=== PATIENT | male | born 1970 | race Two or more races ===

== ENCOUNTER 2016-12-25 13:42 | Inpatient (IN) | payer OTHER ==
[2016-12-25 13:59] VITALS: BMI 20.9
--- NOTE | 2016-12-25 17:02 | HP ---
COWS - Scale Resting Pulse: 0= [place] 80 or Below Sweatin=Flushed/Facial Moisture Restless Observation: 1= Difficult to Sit Still Pupil Size: 2= Moderately Dilated Bone or Joint Aches: 1= Mild Discomfort Runny Nose/ Eye Tearin= Runny Nose/Eyes GI Upset > 30mins: 2= Nausea/Diarrhea Tremor Observation: 2= Slight Tremor Visible Yawning Observation: 1= 1-2x During Session Anxiety or Irritability: 2=Irritable/Anxious Goose Flesh Skin: 0=Smooth Skin COWS Score: 15 CIWA Score - CIWA Score Nausea/Vomitin-Mild Nausea/No Vomiting Muscle Tremors: 3 Anxiety: 4-Mod. Anxious/Guarded Agitation: 4-Moderately Restless Paroxysmal Sweats: 3 Orientation: 2-Disoriented Date<2 days Tacttile Disturbances: 0-None Auditory Disturbances: 0-None Visual Disturbances: 0-None Headache: 0-None Present CIWA-Ar Total Score: 17 Admission ROS S - HPI Allergies/Adverse Reactions: Allergies Allergy/AdvReac Type Severity Reaction Status Date / Time No Known Allergies Allergy Verified 12/25/16 16:54 - Ebola screening Have you traveled outside of the country in the last 21 days: No Have you had contact with anyone from an Ebola affected area: No Have you been sick,other than usual withdrawal symptoms: No Do you have a fever: No - Review of Systems Constitutional: Diaphoresis EENT: reports: Nose Congestion Respiratory: reports: No Symptoms reported Cardiac: reports: No Symptoms Reported GI: reports: Diarrhea, Nausea, Abdominal cramping : reports: No Symptoms Reported Musculoskeletal: reports: Muscle Pain Integumentary: reports: Sweating Neuro: reports: Tremors Endocrine: reports: No Symptoms Reported Hematology: reports: No Symptoms Reported Psychiatric: reports: No Sypmtoms Reported Other Systems: Reviewed and Negative Patient History - Patient Medical History Hx Anemia: No Hx Asthma: No Hx Chronic Obstructive Pulmonary Disease (COPD): No Hx Cancer: No Hx Cardiac Disorders: No Hx Congestive Heart Failure: No Hx Hypertension: No Hx Hypercholesterolemia: No Hx Pacemaker: No HX Cerebrovascular Accident: No Hx Seizures: No Hx Dementia: No Hx Diabetes: No Hx Gastrointestinal Disorders: No Hx Liver Disease: Yes Hx Genitourinary Disorders: No Hx Sexually Transmitted Disorders: No Hx Renal Disease (ESRD): No Hx Thyroid Disease: No Hx Human Immunodeficiency Virus (HIV): No Hx Hepatitis C: Yes (needs treatment) Hx Depression: No Hx Suicide Attempt: No Hx Bipolar Disorder: No Hx Schizophrenia: No - Patient Surgical History Past Surgical History: No - PPD History Previous Implant?: Yes Documented Results: Negative w/o proof PPD to be Administered?: Yes - Smoking Cessation Smoking history: Current every day smoker Aproximately how many cigarettes per day: 10 Hx Chewing Tobacco Use: No Initiated information on smoking cessation: Yes 'Breaking Loose' booklet given: 12/25/16 - Substance & Tx. History Hx Alcohol Use: No Hx Substance Use: Yes Substance Use Type: Heroin, Tranquilizers Hx Substance Use Treatment: Yes (Detox) - Substances Abused Alprazolam (Xanax) Route: Oral Frequency: Daily Amount used: 4mg Age of first use: 31 Date of Last Use: 12/25/16 Heroin Route: Inhalation Frequency: Daily Amount used: 3 bags Age of first use: 16 Date of Last Use: 12/25/16 Family Disease History - Family Disease History Family Disease History: CA: Father (colon), Mother (colon) Admission Physical Exam [facility] - Vital Signs Vital Signs: Vital Signs - 24 hr 12/25/16 13:56 Temperature 97.7 F Pulse Rate 57 L Respiratory 18 Rate Blood Pressure 117/72 - Physical General Appearance: Yes: Tremorous, Irritable, Sweating, Anxious HEENTM: Yes: Nasal Congestion, Rhinorrhea Respiratory: Yes: Chest Non-Tender, Lungs Clear, Normal Breath Sounds Neck: Yes: Supple Breast: Yes: Breast Exam Deferred Cardiology: Yes: Regular Rhythm, Regular Rate, S1, S2 Abdominal: Yes: Normal Bowel Sounds, Non Tender, Soft Genitourinary: Yes: Within Normal Limits Back: Yes: Within Normal Limits Musculoskeletal: Yes: Within Normal Limits Extremities: Yes: Tremors Neurological: Yes: Fully Oriented, Alert Integumentary: Yes: Diaphoresis Lymphatic: Yes: Within Normal Limits - Diagnostic (1) Opioid dependence with withdrawal Current Visit: Yes Status: Acute (2) Sedative, hypnotic or anxiolytic dependence with withdrawal, uncomplicated Current Visit: Yes Status: Acute Cleared for Admission [facility] - Detox or Rehab [facility] Level of Care: Medically Managed Detox Regimen/Protocol: Methadone/Valium [facility] Breath Alcohol Content Breath Alcohol Content: 0 Urine Drug Screen - Results Drug Screen Negative: No Urine Drug Screen Results: OPI-Opiates, BZO-Benzodiazepines
[2016-12-25] MEDS ORDERED: ACETAMINOPHEN 325 MG TABLET (FP) PO PRN (17:17)
[2016-12-25] MEDS ORDERED: MENTHOL/PHENOL 1 EACH UD MM PRN (17:17)
[2016-12-25] MEDS ORDERED: NICOTINE POLACRILEX 2 MG GUM BC PRN (17:17)
[2016-12-25] MEDS ORDERED: MAGNESIUM CITRATE 300 ML BOTTLE PO PRN (17:17)
[2016-12-25] MEDS ORDERED: IBUPROFEN 400 MG TABLET (FP) PO PRN (17:17)
[2016-12-25] MEDS ORDERED: diazePAM 5 MG TABLET PO ONE (17:17)
[2016-12-25] MEDS ORDERED: MAGNESIUM HYDROX 2400MG/30ML ORAL SUSPENSION 30 ML CUP PO PRN (17:17)
[2016-12-25] MEDS ORDERED: hydrOXYzine PAMOATE 50 MG CAPSULE (FP) PO PRN (17:17)
[2016-12-25] MEDS ORDERED: P-EPHED 60MG/TRIPROLIDI 2.5MG TABLET PO PRN (17:17)
[2016-12-25] MEDS ORDERED: METHADONE HCL 10 MG TABLET (FOR DETOX USE ONLY) PO ONE ×2 (17:17→23:00)
[2016-12-25] MEDS ORDERED: guaiFENesin/D-METHORPHAN HB 10 ML UNIT-DOSE CUPS PO PRN (17:17)
[2016-12-25] MEDS: NICOTINE 21 MG/24 HOURS TOPICAL PATCH TD SCH (18:57)
[2016-12-25] MEDS: THIAMINE HCL 100 MG TABLET (FP) PO SCH (22:17)
[2016-12-25] MEDS: diphenhydrAMINE HCL 50 MG CAPSULE PO PRN (22:17)
[2016-12-25] MEDS: diazePAM 5 MG TABLET PO SCH (22:18)
[2016-12-25 22:28] LABS: URINE APPEARANCE CLEAR; URINE BILIRUBIN NEGATIVE (NEGATIVE); URINE BLOOD NEGATIVE (NEGATIVE); URINE COLOR LTYELLOW; URINE GLUCOSE (UA) NEGATIVE (NEGATIVE); URINE KETONE NEGATIVE (NEGATIVE); URINE LEUK ESTERASE NEGATIVE (NEGATIVE); URINE NITRITE NEGATIVE (NEGATIVE); URINE PROTEIN NEGATIVE (NEGATIVE); URINE UROBILINOGEN NEGATIVE mg/dL (0.2-1.0)
[2016-12-26] MEDS: diazePAM 5 MG TABLET PO SCH ×3 (05:21→22:12)
[2016-12-26] MEDS ORDERED: METHADONE HCL 10 MG TABLET (FOR DETOX USE ONLY) PO SCH (10:00)
[2016-12-26] MEDS: PRENATAL VITAMINS W/ FOLIC ACID TABLET (FP) PO SCH (10:15)
[2016-12-26] MEDS: NICOTINE 21 MG/24 HOURS TOPICAL PATCH TD SCH (10:16)
[2016-12-26] MEDS: diazePAM 5 MG TABLET PO PRN ×2 (10:17→17:55)
[2016-12-26 10:28] LABS: MCH 31.9 pg (25.7-33.7); MCHC 33.6 g/dl (32.0-35.9); MEAN PLT VOLUME 9.9 fl (7.5-11.1); PLATELET COUNT 162 K/MM3 (134-434); RDW 12.4 % (11.9-15.9); WHITE BLOOD COUNT 5.6 K/mm3 (4.0-10.0)
[2016-12-26 10:34] LABS: ALBUMIN 3.4 g/dl (3.4-5.0); ANION GAP 7 (8-16); CALCIUM 8.5 mg/dL (8.5-10.1); CO2 28 mmol/L (21-32); GLUCOSE,RANDOM 111 mg/dL (74-106)
[2016-12-26 10:37] LABS: ALK PHOS 138 U/L (45-117); BILIRUBIN,TOTAL 0.3 mg/dL (0.2-1.0); CREATININE 0.9 mg/dL (0.7-1.3); SGOT/AST 61 U/L (15-37); SGPT/ALT 138 U/L (12-78)
--- NOTE | 2016-12-26 12:54 | PN ---
BHS COWS - Scale Resting Pulse: 0= [place] 80 or Below Sweatin=Flushed/Facial Moisture Restless Observation: 1= Difficult to Sit Still Pupil Size: 0= Normal to Room Light Bone or Joint Aches: 2= Severe Diffuse Aches Runny Nose/ Eye Tearin= Runny Nose/Eyes GI Upset > 30mins: 2= Nausea/Diarrhea Tremor Observation of Outstretched Hands: 2= Slight Tremor Visible Yawning Observation: 2= >3x During Session Anxiety or Irritability: 2=Irritable/Anxious Goose Flesh Skin: 0=Smooth Skin COWS Score: 15 BHS Progress Note (SOAP) Subjective: Anxiety,tremors,sweating,interrupted sleep,restless Objective: 12/26/16 12:53 Vital Signs - 8 hr 12/26/16 12/26/16 06:00 10:00 Temperature 98.1 F 97.7 F Pulse Rate 61 70 Respiratory 18 16 Rate Blood Pressure 129/62 135/80 Laboratory Tests 12/25/16 12/26/16 12/26/16 21:00 07:45 07:45 WBC 5.6 RBC 4.38 Hgb 14.0 Hct 41.6 MCV 95.0 MCH 31.9 MCHC 33.6 RDW 12.4 Plt Count 162 MPV 9.9 Sodium 139 Potassium 4.3 Chloride 104 Carbon Dioxide 28 Anion Gap 7 L BUN 18 Creatinine 0.9 Creat Clearance w eGFR > 60 Random Glucose 111 H Calcium 8.5 Total Bilirubin 0.3 AST 61 H ALT 138 H Alkaline Phosphatase 138 H Total Protein 7.0 Albumin 3.4 Urine Color Ltyellow Urine Appearance Clear Urine pH 7.0 Ur Specific [place] 1.025 Urine Protein Negative Urine Glucose (UA) Negative Urine Ketones Negative Urine Blood Negative Urine Nitrite Negative Urine Bilirubin Negative Urine Urobilinogen Negative Ur Leukocyte Esterase Negative labs noted Assessment: 12/26/16 12:53 Withdrawal sx. Plan: Continue detox
[2016-12-26] MEDS: LOPERAMIDE HCL 2 MG CAPSULE PO PRN (17:55)
[2016-12-26] MEDS ORDERED: TRIMETHOBENZAMIDE HCL 200MG/2ML INJ IM PRN (18:37)
[2016-12-26] MEDS: THIAMINE HCL 100 MG TABLET (FP) PO SCH (22:13)
[2016-12-27] MEDS: diazePAM 5 MG TABLET PO PRN (05:06)
--- NOTE | 2016-12-27 09:19 | PN ---
S COWS - Scale Resting Pulse: 0= [place] 80 or Below Sweatin=Flushed/Facial Moisture Restless Observation: 1= Difficult to Sit Still Pupil Size: 0= Normal to Room Light Bone or Joint Aches: 2= Severe Diffuse Aches Runny Nose/ Eye Tearin= Runny Nose/Eyes GI Upset > 30mins: 1= Stomach Cramp Tremor Observation of Outstretched Hands: 2= Slight Tremor Visible Yawning Observation: 2= >3x During Session Anxiety or Irritability: 2=Irritable/Anxious Goose Flesh Skin: 0=Smooth Skin COWS Score: 14 S Progress Note (SOAP) Subjective: agitation anxiety sweats irritable interrupted sleep Objective: 12/27/16 09:16 Vital Signs Temperature 96.6 F L 12/27/16 06:01 Pulse Rate 58 L 12/27/16 06:01 Respiratory Rate 16 12/27/16 06:01 Blood Pressure 104/59 12/27/16 06:01 O2 Sat by Pulse Oximetry (%) Laboratory Tests 12/25/16 12/26/16 12/26/16 21:00 07:45 07:45 WBC 5.6 RBC 4.38 Hgb 14.0 Hct 41.6 MCV 95.0 MCH 31.9 MCHC 33.6 RDW 12.4 Plt Count 162 MPV 9.9 Sodium 139 Potassium 4.3 Chloride 104 Carbon Dioxide 28 Anion Gap 7 L BUN 18 Creatinine 0.9 Creat Clearance w eGFR > 60 Random Glucose 111 H Calcium 8.5 Total Bilirubin 0.3 AST 61 H ALT 138 H Alkaline Phosphatase 138 H Total Protein 7.0 Albumin 3.4 Urine Color Ltyellow Urine Appearance Clear Urine pH 7.0 Ur Specific [place] 1.025 Urine Protein Negative Urine Glucose (UA) Negative Urine Ketones Negative Urine Blood Negative Urine Nitrite Negative Urine Bilirubin Negative Urine Urobilinogen Negative Ur Leukocyte Esterase Negative RPR Titer 12/26/16 07:45 WBC RBC Hgb Hct MCV MCH MCHC RDW Plt Count MPV Sodium Potassium Chloride Carbon Dioxide Anion Gap BUN Creatinine Creat Clearance w eGFR Random Glucose Calcium Total Bilirubin AST ALT Alkaline Phosphatase Total Protein Albumin Urine Color Urine Appearance Urine pH Ur Specific [place] Urine Protein Urine Glucose (UA) Urine Ketones Urine Blood Urine Nitrite Urine Bilirubin Urine Urobilinogen Ur Leukocyte Esterase RPR Titer Nonreactive awake/alert ambulating no acute distress Assessment: 12/27/16 09:18 withdrawal sx Plan: continue detox increase fluids tylenol d/c
--- NOTE | 2016-12-27 09:59 | EKG ---
Test Reason : Blood Pressure : / mmHG Vent. Rate : 053 BPM Atrial Rate : 053 BPM P-R Int : 116 ms QRS Dur : 096 ms QT Int : 442 ms P-R-T Axes : 021 087 071 degrees QTc Int : 414 ms SINUS BRADYCARDIA OTHERWISE NORMAL ECG NO PREVIOUS ECGS AVAILABLE Confirmed by JUAN ALBERTO CORTES MD ([id number]) on 12/27/2016 9:58:40 AM Referred By: Confirmed By:JUAN ALBERTO CORTES MD
[2016-12-27] MEDS: PRENATAL VITAMINS W/ FOLIC ACID TABLET (FP) PO SCH (10:23)
[2016-12-27] MEDS: diazePAM 5 MG TABLET PO SCH ×2 (10:24→22:21)
[2016-12-27] MEDS: NICOTINE 21 MG/24 HOURS TOPICAL PATCH TD SCH (10:24)
[2016-12-27] MEDS: METHADONE HCL 5 MG TABLET (FOR DETOX USE ONLY) PO SCH (10:24)
[2016-12-27] MEDS: THIAMINE HCL 100 MG TABLET (FP) PO SCH (22:21)
[2016-12-27] MEDS: diphenhydrAMINE HCL 50 MG CAPSULE PO PRN (22:22)
[2016-12-28] MEDS: MAG HYDROX/AL HYDROX/SIMETH 30 ML UNIT-DOSE CUP PO PRN ×2 (04:14→22:22)
[2016-12-28] MEDS: LOPERAMIDE HCL 2 MG CAPSULE PO PRN ×3 (05:24→19:40)
[2016-12-28] MEDS: diazePAM 5 MG TABLET PO PRN (05:26)
[2016-12-28] MEDS: METHADONE HCL 5 MG TABLET (FOR DETOX USE ONLY) PO SCH (10:13)
[2016-12-28] MEDS: NICOTINE 21 MG/24 HOURS TOPICAL PATCH TD SCH (10:13)
[2016-12-28] MEDS: diazePAM 5 MG TABLET PO SCH ×2 (10:13→22:22)
[2016-12-28] MEDS: PRENATAL VITAMINS W/ FOLIC ACID TABLET (FP) PO SCH (10:13)
--- NOTE | 2016-12-28 10:55 | PN ---
BHS Progress Note (SOAP) Subjective: agitation anxiety sweats diarrhea Objective: 12/28/16 10:53 Vital Signs Temperature 97.7 F 12/28/16 10:00 Pulse Rate 73 12/28/16 10:00 Respiratory Rate 18 12/28/16 10:00 Blood Pressure 135/78 12/28/16 10:00 O2 Sat by Pulse Oximetry (%) awake/alert ambulating no acute distress Assessment: 12/28/16 11:00 withdrawal sx Plan: continue detox increase fluids immodium prn
[2016-12-28] MEDS: diphenhydrAMINE HCL 50 MG CAPSULE PO PRN (22:22)
[2016-12-28] MEDS: THIAMINE HCL 100 MG TABLET (FP) PO SCH (22:22)
[2016-12-29] MEDS ORDERED: diazePAM 5 MG TABLET PO SCH (10:00)
[2016-12-29] MEDS ORDERED: METHADONE HCL 10 MG TABLET (FOR DETOX USE ONLY) PO SCH (10:00)
--- NOTE | 2016-12-29 10:08 | PN ---
BHS Progress Note (SOAP) Subjective: irritable diarrhea Objective: 12/29/16 10:06 Vital Signs Temperature 98.2 F 12/29/16 10:00 Pulse Rate 79 12/29/16 10:00 Respiratory Rate 18 12/29/16 10:00 Blood Pressure 127/71 12/29/16 10:00 O2 Sat by Pulse Oximetry (%) awake/alert ambulating no acute distress Assessment: 12/29/16 10:07 mild withdrawal Plan: continue detox immodium prn d/c in am
[2016-12-29] MEDS: PRENATAL VITAMINS W/ FOLIC ACID TABLET (FP) PO SCH (10:14)
[2016-12-29] MEDS: NICOTINE 21 MG/24 HOURS TOPICAL PATCH TD SCH (10:15)
[2016-12-29] MEDS: THIAMINE HCL 100 MG TABLET (FP) PO SCH (22:45)
[2016-12-29] MEDS: diphenhydrAMINE HCL 50 MG CAPSULE PO PRN (22:45)
[2016-12-30] MEDS: MAG HYDROX/AL HYDROX/SIMETH 30 ML UNIT-DOSE CUP PO PRN (04:00)
[2016-12-30] MEDS ORDERED: METHADONE HCL 5 MG TABLET (FOR DETOX USE ONLY) PO SCH (06:00)
[2016-12-30] MEDS: LOPERAMIDE HCL 2 MG CAPSULE PO PRN (06:54)
--- NOTE | 2016-12-30 09:05 | DS ---
[facility] Detox Discharge Summary Admission Date: 12/25/16 Discharge Date: 12/30/16 - History Present History: Opioid Dependence, Sedative Dependence - Physical Exam Results Vital Signs: Vital Signs Temperature 97.3 F L 12/30/16 06:14 Pulse Rate 67 12/30/16 06:14 Respiratory Rate 16 12/30/16 06:14 Blood Pressure 132/64 12/30/16 06:14 O2 Sat by Pulse Oximetry (%) - Treatment Hospital Course: Detox Protocol Followed, Detoxed Safely, Responded well, Discharged Condition Good, Rehab Referral Accepted - Medication Discharge Medications: Ambulatory Orders NK [No Known Home Medication] 12/25/16 - Diagnosis (1) Opioid dependence with withdrawal Current Visit: Yes Status: Chronic (2) Sedative, hypnotic or anxiolytic dependence with withdrawal, uncomplicated Current Visit: Yes Status: Chronic - AMA Did Patient Leave Against Medical Advice: No (d/c to home)
[2016-12-30] MEDS: PRENATAL VITAMINS W/ FOLIC ACID TABLET (FP) PO SCH (09:18)
[2016-12-30] MEDS: NICOTINE 21 MG/24 HOURS TOPICAL PATCH TD SCH (09:19)
[2016-12-30 09:31] VITALS: BP 126/86; PULSE 75; TEMP 97
== END 2016-12-30 09:25 | disposition home or self-care (01) | DRG 773 ==
LOC: YASAS 13:42 → Y6N 17:18
PROVIDERS: ADMIT Internal Medicine; ATTEND Internal Medicine
PROC: HZ2ZZZZ Detoxification Services for Substance Abuse Treatment (ICD-10-PCS; principal; 2016-12-25)
DX: F11.23 Opioid dependence with withdrawal (principal); F13.230 Sedative, hypnotic or anxiolytic dependence with withdrawal, uncomplicated; F17.210 Nicotine dependence, cigarettes, uncomplicated; B18.2 Chronic viral hepatitis C
CPT/HCPCS: 36415; 80053; 81003; 85027; 86593; 93005; 93010

== ENCOUNTER 2017-08-01 10:33 | Inpatient (IN) | payer OTHER ==
[2017-08-01 11:42] VITALS: BMI 22.7
--- NOTE | 2017-08-01 13:38 | HP ---
COWS - Scale Resting Pulse: 0= [place] 80 or Below Sweatin= Chills/Flushing Restless Observation: 3= Extraneous Movement Pupil Size: 0= Normal to Room Light Bone or Joint Aches: 2= Severe Diffuse Aches Runny Nose/ Eye Tearin= Runny Nose/Eyes GI Upset > 30mins: 2= Nausea/Diarrhea Tremor Observation: 2= Slight Tremor Visible Yawning Observation: 2= >3x During Session Anxiety or Irritability: 2=Irritable/Anxious Goose Flesh Skin: 3=Piloerection COWS Score: 19 Admission [facility] Chief Complaint: withdrawal sx Allergies/Adverse Reactions: Allergies Allergy/AdvReac Type Severity Reaction Status Date / Time No Known Allergies Allergy Verified 12/25/16 16:54 History of Present Illness: 47 years old male with long history of heroin nicotine dependence has hepatitis c and depression anxiety is admitted to detox Exam Limitations: No Limitations - Ebola screening Have you traveled outside of the country in the last 21 days: No Have you had contact with anyone from an Ebola affected area: No Have you been sick,other than usual withdrawal symptoms: No Do you have a fever: No - Review of Systems Constitutional: Chills, Loss of Appetite, Unintentional Wgt. Loss, Unexplained wgt Loss EENT: reports: No Symptoms Reported Respiratory: reports: No Symptoms reported Cardiac: reports: No Symptoms Reported GI: reports: Diarrhea, Nausea, Poor Appetite, Poor Fluid Intake, Vomiting, Abdominal cramping : reports: No Symptoms Reported Musculoskeletal: reports: Back Pain, Joint Pain, Muscle Pain, Neck Pain Integumentary: reports: Change in Color (arms iv heroin) Neuro: reports: Tremors Endocrine: reports: No Symptoms Reported Hematology: reports: No Symptoms Reported Psychiatric: reports: Judgement Intact, Mood/Affect Appropiate, Orientated x3 Other Systems: Reviewed and Negative Patient History - Patient Medical History Hx Anemia: No Hx Asthma: No Hx Chronic Obstructive Pulmonary Disease (COPD): No Hx Cancer: No Hx Cardiac Disorders: No Hx Congestive Heart Failure: No Hx Hypertension: No Hx Hypercholesterolemia: No Hx Pacemaker: No HX Cerebrovascular Accident: No Hx Seizures: No Hx Dementia: No Hx Diabetes: No Hx Gastrointestinal Disorders: No Hx Liver Disease: Yes Hx Genitourinary Disorders: No Hx Sexually Transmitted Disorders: No Hx Renal Disease (ESRD): No Hx Thyroid Disease: No Hx Human Immunodeficiency Virus (HIV): No Hx Hepatitis C: Yes (needs treatment) Hx Depression: Yes Hx Suicide Attempt: No Hx Bipolar Disorder: No Hx Schizophrenia: No - Patient Surgical History Past Surgical History: Yes Other Surgical History: left shoulder skin ca 2009 Anesthesia Reaction: No - PPD History Previous Implant?: Yes Documented Results: Negative w/proof Implanted On Prior [facility] Admission?: Yes Date: 12/27/16 PPD to be Administered?: No - Smoking Cessation Smoking history: Current every day smoker Have you smoked in the past 12 months: Yes Aproximately how many cigarettes per day: 20 Cigars Per Day: 0 Hx Chewing Tobacco Use: No Initiated information on smoking cessation: Yes 'Breaking Loose' booklet given: 08/01/17 - Substance & Tx. History Hx Alcohol Use: No Hx Substance Use: Yes Substance Use Type: Opiates Hx Substance Use Treatment: No - Substances Abused Heroin Route: Inhalation Frequency: Daily Amount used: 12 bags Age of first use: 16 Date of Last Use: 08/01/17 Family Disease History - Family Disease History Family Disease History: CA: Father (colon ), Mother (colon ), Other: Father, Mother Admission Physical Exam S - Vital Signs Vital Signs: Vital Signs - 24 hr 08/01/17 11:39 Temperature 97.6 F Pulse Rate 64 Respiratory 20 Rate Blood Pressure 133/67 - Physical General Appearance: Yes: Appropriately Dressed, Moderate Distress, Thin, Tremorous, Irritable, Sweating, Anxious HEENTM: Yes: Hearing grossly Normal, Normal ENT Inspection, Normocephalic, Normal Voice Respiratory: Yes: Chest Non-Tender, Lungs Clear, Normal Breath Sounds, No Respiratory Distress, No Accessory Muscle Use Neck: Yes: Supple, Trachea in good position Breast: Yes: Breasts Symetrical Cardiology: Yes: Regular Rhythm, S1, S2, Bradycardia Abdominal: Yes: Non Tender, Soft, Increased Bowel Sounds Genitourinary: Yes: Within Normal Limits Back: Yes: Normal Inspection Musculoskeletal: Yes: full range of Motion, Gait Steady, Back pain, Muscle Pain Extremities: Yes: Normal Range of Motion, Non-Tender, Tremors Neurological: Yes: Fully Oriented, Alert, Motor Strength 5/5, Normal Mood/Affect , Normal Response Integumentary: Yes: Normal Color, Warm, Track [place] Lymphatic: Yes: Within Normal Limits - Diagnostic (1) Hepatitis C Current Visit: Yes Status: Chronic Qualifiers: Viral hepatitis chronicity: chronic (2) Weight loss Current Visit: Yes Status: Acute (3) Nicotine dependence Current Visit: Yes Status: Acute Qualifiers: Nicotine product type: cigarettes Substance use status: in withdrawal Qualified Code(s): F17.213 - Nicotine dependence, cigarettes, with withdrawal (4) Opioid dependence with withdrawal Current Visit: Yes Status: Acute Cleared for Admission S - Detox or Rehab [facility] Level of Care: Medically Managed Detox Regimen/Protocol: Methadone [facility] Breath Alcohol Content Breath Alcohol Content: 0 Urine Drug Screen - Results Drug Screen Negative: No Urine Drug Screen Results: OPI-Opiates
[2017-08-01] MEDS ORDERED: MENTHOL/PHENOL 1 EACH UD MM PRN (13:45)
[2017-08-01] MEDS ORDERED: NICOTINE POLACRILEX 4 MG GUM BC PRN (13:45)
[2017-08-01] MEDS ORDERED: P-EPHED 60MG/TRIPROLIDI 2.5MG TABLET PO PRN (13:45)
[2017-08-01] MEDS ORDERED: LOPERAMIDE HCL 2 MG CAPSULE PO PRN (13:45)
[2017-08-01] MEDS ORDERED: IBUPROFEN 400 MG TABLET (FP) PO PRN (13:45)
[2017-08-01] MEDS ORDERED: ACETAMINOPHEN 325 MG TABLET (FP) PO PRN (13:45)
[2017-08-01] MEDS ORDERED: MAGNESIUM HYDROX 2400MG/30ML ORAL SUSPENSION 30 ML CUP PO PRN (13:45)
[2017-08-01] MEDS ORDERED: MAG HYDROX/AL HYDROX/SIMETH 30 ML UNIT-DOSE CUP PO PRN (13:45)
[2017-08-01] MEDS ORDERED: guaiFENesin/D-METHORPHAN HB 10 ML UNIT-DOSE CUPS PO PRN (13:45)
[2017-08-01] MEDS ORDERED: MAGNESIUM CITRATE 300 ML BOTTLE PO PRN (13:45)
[2017-08-01] MEDS ORDERED: METHADONE HCL 10 MG TABLET (FOR DETOX USE ONLY) PO ONE ×2 (15:00→23:00)
[2017-08-01] MEDS ORDERED: METHADONE HCL 10 MG TABLET (FOR DETOX USE ONLY) ONE (18:00)
[2017-08-01] MEDS: NICOTINE 21 MG/24 HOURS TOPICAL PATCH TD SCH (18:06)
[2017-08-01] MEDS: diazePAM 5 MG TABLET PO PRN (18:06)
[2017-08-01] MEDS: METHOCARBAMOL 500 MG TABLET PO SCH ×3 (18:06→22:33)
[2017-08-01] MEDS: THIAMINE HCL 100 MG TABLET (FP) PO SCH (22:33)
[2017-08-01 22:39] LABS: URINE APPEARANCE CLEAR; URINE BILIRUBIN NEGATIVE (NEGATIVE); URINE BLOOD NEGATIVE (NEGATIVE); URINE COLOR YELLOW; URINE GLUCOSE (UA) NEGATIVE (NEGATIVE); URINE KETONE NEGATIVE (NEGATIVE); URINE LEUK ESTERASE NEGATIVE (NEGATIVE); URINE NITRITE NEGATIVE (NEGATIVE); URINE PROTEIN NEGATIVE (NEGATIVE)
[2017-08-02] MEDS ORDERED: METHADONE HCL 10 MG TABLET (FOR DETOX USE ONLY) PO ONE (10:00)
[2017-08-02 10:29] LABS: HEMATOCRIT 42.5 % (35.4-49); HEMOGLOBIN 14.3 GM/dL (11.7-16.9); MCH 32.2 pg (25.7-33.7); MCHC 33.7 g/dl (32.0-35.9); MEAN CELL VOLUME 95.5 fl (80-96); MEAN PLT VOLUME 9.8 fl (7.5-11.1); PLATELET COUNT 209 K/MM3 (134-434); RBC 4.45 M/mm3 (4.00-5.60); RDW 12.7 % (11.9-15.9); WHITE BLOOD COUNT 5.3 K/mm3 (4.0-10.0)
[2017-08-02 10:33] LABS: CHLORIDE 105 mmol/L (98-107); POTASSIUM 4.2 mmol/L (3.5-5.1); SODIUM 140 mmol/L (136-145)
[2017-08-02] MEDS: NICOTINE 21 MG/24 HOURS TOPICAL PATCH TD SCH (10:39)
[2017-08-02] MEDS: PRENATAL VITAMINS W/ FOLIC ACID TABLET (FP) PO SCH (10:39)
[2017-08-02] MEDS: METHOCARBAMOL 500 MG TABLET PO SCH ×4 (10:39→22:21)
[2017-08-02 11:00] LABS: ALBUMIN 4.1 g/dl (3.4-5.0); ALK PHOS 112 U/L (45-117); ANION GAP 8 (8-16); BILIRUBIN,TOTAL 0.6 mg/dL (0.2-1.0); BLOOD UREA NITROGEN 15 mg/dL (7-18); CALCIUM 8.8 mg/dL (8.5-10.1); CO2 27 mmol/L (21-32); CREATININE 1.1 mg/dL (0.7-1.3); GLUCOSE,RANDOM 97 mg/dL (74-106); SGOT/AST 105 U/L (15-37); SGPT/ALT 231 U/L (12-78); TOT PROT 8.3 g/dl (6.4-8.2)
--- NOTE | 2017-08-02 12:04 | EKG ---
Test Reason : Blood Pressure : / mmHG Vent. Rate : 058 BPM Atrial Rate : 058 BPM P-R Int : 138 ms QRS Dur : 100 ms QT Int : 430 ms P-R-T Axes : 053 088 076 degrees QTc Int : 422 ms SINUS BRADYCARDIA OTHERWISE NORMAL ECG WHEN COMPARED WITH ECG OF 25-DEC-2016 17:30, NO SIGNIFICANT CHANGE WAS FOUND Confirmed by MD Gunderson Edward ([id number]) on 08/02/2017 12:04:35 PM Referred By: Confirmed By:Andrei Gunderson MD
--- NOTE | 2017-08-02 12:16 | PN ---
S COWS - Scale Resting Pulse: 0= [place] 80 or Below Sweatin= No chills or Flushing Restless Observation: 1= Difficult to Sit Still Pupil Size: 0= Normal to Room Light Bone or Joint Aches: 2= Severe Diffuse Aches Runny Nose/ Eye Tearin= None GI Upset > 30mins: 0= None Tremor Observation of Outstretched Hands: 2= Slight Tremor Visible Yawning Observation: 2= >3x During Session Anxiety or Irritability: 2=Irritable/Anxious Goose Flesh Skin: 3=Piloerection COWS Score: 12 BHS Progress Note (SOAP) Subjective: Interrupted Sleep, Body Aches, H/A, Tremors, Sweating. Objective: PATIENT A & O X 3. NO ACUTE DISTRESS. 08/02/17 12:12 Vital Signs Temperature 98 F 08/02/17 09:33 Pulse Rate 69 08/02/17 09:33 Respiratory Rate 20 08/02/17 09:33 Blood Pressure 107/59 08/02/17 09:33 O2 Sat by Pulse Oximetry (%) Laboratory Tests 08/01/17 08/02/17 08/02/17 Unknown 05:45 05:45 WBC 5.3 RBC 4.45 Hgb 14.3 Hct 42.5 MCV 95.5 MCH 32.2 MCHC 33.7 RDW 12.7 Plt Count 209 D MPV 9.8 Sodium 140 Potassium 4.2 Chloride 105 Carbon Dioxide 27 Anion Gap 8 BUN 15 Creatinine 1.1 D Creat Clearance w eGFR > 60 Random Glucose 97 Calcium 8.8 Total Bilirubin 0.6 D AST 105 H D ALT 231 H D Alkaline Phosphatase 112 Total Protein 8.3 H Albumin 4.1 D Urine Color Yellow Urine Appearance Clear Urine pH 5.0 D Ur Specific [place] 1.023 Urine Protein Negative Urine Glucose (UA) Negative Urine Ketones Negative Urine Blood Negative Urine Nitrite Negative Urine Bilirubin Negative Urine Urobilinogen 2.0 Ur Leukocyte Esterase Negative LABS NOTED. RPR RESULT PENDING. 08/02/17 12:15 Assessment: 08/02/17 12:13 WITHDRAWAL SYMPTOMS. Plan: CONTINUE DETOX. INCREASE DAILY PO FLUID INTAKE. REPEAT AST, ALT ON 08/03/2017 FOR ELEVATED ADMISSION LEVELS.
[2017-08-02] MEDS ORDERED: COLLOIDAL OATMEAL 1 BAR EACH TP PRN (14:07)
--- NOTE | 2017-08-02 14:27 | CONSULT ---
[facility] Psychiatric Consult - Data Date of interview: 08/02/17 Admission source: [facility] Identifying data: Pt. is a 47 year old single male, father of two, unemployed, and currently resides with sister. This is one of multiple admissions for patient. Pt. admitted to for opiate dependence. Substance Abuse History: Following information confirmed with Mr. Jin: Smoking Cessation. Smoking history: Current every day smoker. Have you smoked in the past 12 months: Yes. Aproximately how many cigarettes per day: 20. Cigars Per Day: 0. Hx Chewing Tobacco Use: No. Initiated information on smoking cessation: Yes. 'Breaking Loose' booklet given: 08/01/17. - Substance & Tx. History. Hx Alcohol Use: No. Hx Substance Use: Yes. Substance Use Type : Opiates. Hx Substance Use Treatment: No. - Substances Abused. Heroin. Route: Inhalation. Frequency: Daily. Amount used: 12 bags. Age of first use: 16. Date of Last Use: 08/01/17 Medical History: Hep C Psychiatric History: Pt. denies h/o psychiatric hospitalization, suicide attempts, and outpatient care. Physical/Sexual Abuse/Trauma History: Denies. Mental Status Exam - Mental Status Exam Alert and Oriented to: Time, Place, Person Cognitive Function: Good Patient Appearance: Well Groomed Mood: Withdrawn Affect: Mood Congruent Patient Behavior: Cooperative Speech Pattern: Delayed Voice Loudness: Normal Thought Process: Goal Oriented Thought Disorder: Not Present Hallucinations: Denies Suicidal Ideation: Denies Homicidal Ideation: Denies Insight/Judgement: Poor Sleep: Poorly Appetite: Fair Muscle strength/Tone: Normal Gait/Station: Normal Psychiatric Findings - Problem List ([place] 1, 2,3) (1) Nicotine dependence Current Visit: Yes Status: Acute Qualifiers: Nicotine product type: cigarettes Substance use status: in withdrawal Qualified Code(s): F17.213 - Nicotine dependence, cigarettes, with withdrawal (2) Opioid dependence with withdrawal Current Visit: Yes Status: Acute (3) Insomnia Current Visit: Yes Status: Acute - Initial Treatment Plan Initial Treatment Plan: Psychoeducation provided. Detoxification provided. Ambien 10mg qhs ordered. Pt. reports favorable effect from previously taking ambien. Benefits and side effects (sleep walking) discussed. Will continue to monitor.
[2017-08-02] MEDS ORDERED: ZOLPIDEM TARTRATE 5 MG TABLET PO PRN (22:00)
[2017-08-02] MEDS: ZOLPIDEM TARTRATE 10 MG TABLET (PARK CARE ONLY) PO PRN (22:21)
[2017-08-02] MEDS: THIAMINE HCL 100 MG TABLET (FP) PO SCH (22:21)
[2017-08-03] MEDS: METHOCARBAMOL 500 MG TABLET PO SCH ×4 (09:59→22:32)
[2017-08-03] MEDS: diazePAM 5 MG TABLET PO PRN ×2 (10:00→18:09)
[2017-08-03] MEDS: NICOTINE 21 MG/24 HOURS TOPICAL PATCH TD SCH (10:00)
[2017-08-03] MEDS: PRENATAL VITAMINS W/ FOLIC ACID TABLET (FP) PO SCH (10:00)
[2017-08-03] MEDS ORDERED: METHADONE HCL 5 MG TABLET (FOR DETOX USE ONLY) PO ONE (10:00)
--- NOTE | 2017-08-03 12:15 | PN ---
BHS COWS - Scale Resting Pulse: 0= [place] 80 or Below Sweatin= Chills/Flushing Restless Observation: 1= Difficult to Sit Still Pupil Size: 0= Normal to Room Light Bone or Joint Aches: 2= Severe Diffuse Aches Runny Nose/ Eye Tearin= None GI Upset > 30mins: 2= Nausea/Diarrhea Tremor Observation of Outstretched Hands: 0= None Yawning Observation: 2= >3x During Session Anxiety or Irritability: 2=Irritable/Anxious Goose Flesh Skin: 3=Piloerection COWS Score: 13 BHS Progress Note (SOAP) Subjective: Diarrhea, Body Aches, Fatigue. Objective: PATIENT A & O X 3, OBSERVED AMBULATING ON UNIT. NO ACUTE DISTRESS. 08/03/17 12:14 Vital Signs Temperature 97.3 F L 08/03/17 09:09 Pulse Rate 60 08/03/17 09:09 Respiratory Rate 18 08/03/17 09:09 Blood Pressure 113/63 08/03/17 09:09 O2 Sat by Pulse Oximetry (%) Laboratory Tests 08/01/17 08/02/17 08/02/17 Unknown 05:45 05:45 WBC 5.3 RBC 4.45 Hgb 14.3 Hct 42.5 MCV 95.5 MCH 32.2 MCHC 33.7 RDW 12.7 Plt Count 209 D MPV 9.8 Sodium 140 Potassium 4.2 Chloride 105 Carbon Dioxide 27 Anion Gap 8 BUN 15 Creatinine 1.1 D Creat Clearance w eGFR > 60 Random Glucose 97 Calcium 8.8 Total Bilirubin 0.6 D AST 105 H D ALT 231 H D Alkaline Phosphatase 112 Total Protein 8.3 H Albumin 4.1 D Urine Color Yellow Urine Appearance Clear Urine pH 5.0 D Ur Specific [place] 1.023 Urine Protein Negative Urine Glucose (UA) Negative Urine Ketones Negative Urine Blood Negative Urine Nitrite Negative Urine Bilirubin Negative Urine Urobilinogen 2.0 Ur Leukocyte Esterase Negative RPR Titer 08/02/17 05:45 WBC RBC Hgb Hct MCV MCH MCHC RDW Plt Count MPV Sodium Potassium Chloride Carbon Dioxide Anion Gap BUN Creatinine Creat Clearance w eGFR Random Glucose Calcium Total Bilirubin AST ALT Alkaline Phosphatase Total Protein Albumin Urine Color Urine Appearance Urine pH Ur Specific [place] Urine Protein Urine Glucose (UA) Urine Ketones Urine Blood Urine Nitrite Urine Bilirubin Urine Urobilinogen Ur Leukocyte Esterase RPR Titer Nonreactive LABS NOTED. Assessment: 08/03/17 12:14 WITHDRAWAL SYMPTOMS. Plan: CONTINUE DETOX. INCREASE DAILY PO FLUID INTAKE. PRN IMMODIUM FOR DIARRHEA.
[2017-08-03] MEDS: THIAMINE HCL 100 MG TABLET (FP) PO SCH (22:32)
[2017-08-03] MEDS: ZOLPIDEM TARTRATE 10 MG TABLET (PARK CARE ONLY) PO PRN (22:32)
[2017-08-04] MEDS ORDERED: METHADONE HCL 5 MG TABLET (FOR DETOX USE ONLY) PO ONE (10:00)
[2017-08-04 10:23] LABS: SGOT/AST 104 U/L (15-37); SGPT/ALT 218 U/L (12-78)
[2017-08-04] MEDS: diazePAM 5 MG TABLET PO PRN (10:23)
[2017-08-04] MEDS: METHOCARBAMOL 500 MG TABLET PO SCH ×4 (10:23→22:30)
[2017-08-04] MEDS: PRENATAL VITAMINS W/ FOLIC ACID TABLET (FP) PO SCH (10:23)
[2017-08-04] MEDS: NICOTINE 21 MG/24 HOURS TOPICAL PATCH TD SCH (10:23)
--- NOTE | 2017-08-04 12:54 | PN ---
BHS Progress Note (SOAP) Subjective: Fatigue, Body Aches, Interrupted Sleep. Objective: PATIENT A & O X 3, OBSERVED AMBULATING ON UNIT. NO ACUTE DISTRESS. 08/04/17 12:53 Vital Signs Temperature 97.2 F L 08/04/17 09:26 Pulse Rate 68 08/04/17 09:26 Respiratory Rate 18 08/04/17 09:26 Blood Pressure 111/63 08/04/17 09:26 O2 Sat by Pulse Oximetry (%) Laboratory Tests 08/01/17 08/02/17 08/02/17 Unknown 05:45 05:45 WBC 5.3 RBC 4.45 Hgb 14.3 Hct 42.5 MCV 95.5 MCH 32.2 MCHC 33.7 RDW 12.7 Plt Count 209 D MPV 9.8 Sodium 140 Potassium 4.2 Chloride 105 Carbon Dioxide 27 Anion Gap 8 BUN 15 Creatinine 1.1 D Creat Clearance w eGFR > 60 Random Glucose 97 Calcium 8.8 Total Bilirubin 0.6 D AST 105 H D ALT 231 H D Alkaline Phosphatase 112 Total Protein 8.3 H Albumin 4.1 D Urine Color Yellow Urine Appearance Clear Urine pH 5.0 D Ur Specific [place] 1.023 Urine Protein Negative Urine Glucose (UA) Negative Urine Ketones Negative Urine Blood Negative Urine Nitrite Negative Urine Bilirubin Negative Urine Urobilinogen 2.0 Ur Leukocyte Esterase Negative RPR Titer 08/02/17 08/04/17 05:45 07:30 WBC RBC Hgb Hct MCV MCH MCHC RDW Plt Count MPV Sodium Potassium Chloride Carbon Dioxide Anion Gap BUN Creatinine Creat Clearance w eGFR Random Glucose Calcium Total Bilirubin AST 104 H ALT 218 H Alkaline Phosphatase Total Protein Albumin Urine Color Urine Appearance Urine pH Ur Specific [place] Urine Protein Urine Glucose (UA) Urine Ketones Urine Blood Urine Nitrite Urine Bilirubin Urine Urobilinogen Ur Leukocyte Esterase RPR Titer Nonreactive LABS NOTED. Assessment: 08/04/17 12:53 WITHDRAWAL SYMPTOMS. Plan: CONTINUE DETOX.
[2017-08-04] MEDS: ZOLPIDEM TARTRATE 10 MG TABLET (PARK CARE ONLY) PO PRN (22:30)
[2017-08-04] MEDS: THIAMINE HCL 100 MG TABLET (FP) PO SCH (22:30)
[2017-08-05] MEDS ORDERED: METHADONE HCL 10 MG TABLET (FOR DETOX USE ONLY) PO ONE (10:00)
[2017-08-05] MEDS: NICOTINE 21 MG/24 HOURS TOPICAL PATCH TD SCH (10:13)
[2017-08-05] MEDS: PRENATAL VITAMINS W/ FOLIC ACID TABLET (FP) PO SCH (10:13)
[2017-08-05] MEDS: METHOCARBAMOL 500 MG TABLET PO SCH ×4 (10:13→22:33)
--- NOTE | 2017-08-05 13:23 | PN ---
BHS Progress Note (SOAP) Subjective: Fatigue, Sweating. Objective: PATIENT A & O X 3, OBSERVED AMBULATING ON UNIT. NO ACUTE DISTRESS. 08/05/17 13:21 Vital Signs Temperature 95.8 F L 08/05/17 10:49 Pulse Rate 72 08/05/17 10:49 Respiratory Rate 18 08/05/17 10:49 Blood Pressure 118/60 08/05/17 10:49 O2 Sat by Pulse Oximetry (%) Laboratory Tests 08/01/17 08/02/17 08/02/17 Unknown 05:45 05:45 WBC 5.3 RBC 4.45 Hgb 14.3 Hct 42.5 MCV 95.5 MCH 32.2 MCHC 33.7 RDW 12.7 Plt Count 209 D MPV 9.8 Sodium 140 Potassium 4.2 Chloride 105 Carbon Dioxide 27 Anion Gap 8 BUN 15 Creatinine 1.1 D Creat Clearance w eGFR > 60 Random Glucose 97 Calcium 8.8 Total Bilirubin 0.6 D AST 105 H D ALT 231 H D Alkaline Phosphatase 112 Total Protein 8.3 H Albumin 4.1 D Urine Color Yellow Urine Appearance Clear Urine pH 5.0 D Ur Specific [place] 1.023 Urine Protein Negative Urine Glucose (UA) Negative Urine Ketones Negative Urine Blood Negative Urine Nitrite Negative Urine Bilirubin Negative Urine Urobilinogen 2.0 Ur Leukocyte Esterase Negative RPR Titer 08/02/17 08/04/17 05:45 07:30 WBC RBC Hgb Hct MCV MCH MCHC RDW Plt Count MPV Sodium Potassium Chloride Carbon Dioxide Anion Gap BUN Creatinine Creat Clearance w eGFR Random Glucose Calcium Total Bilirubin AST 104 H ALT 218 H Alkaline Phosphatase Total Protein Albumin Urine Color Urine Appearance Urine pH Ur Specific [place] Urine Protein Urine Glucose (UA) Urine Ketones Urine Blood Urine Nitrite Urine Bilirubin Urine Urobilinogen Ur Leukocyte Esterase RPR Titer Nonreactive LABS NOTED. Assessment: 08/05/17 13:22 WITHDRAWAL SYMPTOMS. Plan: CONTINUE DETOX. INCREASE DAILY PO FLUID INTAKE.
[2017-08-05] MEDS: THIAMINE HCL 100 MG TABLET (FP) PO SCH (22:33)
[2017-08-06] MEDS ORDERED: METHADONE HCL 5 MG TABLET (FOR DETOX USE ONLY) PO ONE (06:00)
[2017-08-06 06:47] VITALS: BP 98/56; PULSE 55; TEMP 97.1
--- NOTE | 2017-08-06 19:03 | PN ---
BHS Progress Note (SOAP) Subjective: Patient denies current detox symptoms and reports that he is feeling well overall. Objective: PATIENT A & O X 3, OBSERVED AMBULATING ON UNIT. NO ACUTE DISTRESS. 08/06/17 19:01 Vital Signs Temperature 97.1 F L 08/06/17 06:46 Pulse Rate 55 L 08/06/17 06:46 Respiratory Rate 18 08/06/17 06:46 Blood Pressure 98/56 08/06/17 06:46 O2 Sat by Pulse Oximetry (%) Laboratory Tests 08/01/17 08/02/17 08/02/17 Unknown 05:45 05:45 WBC 5.3 RBC 4.45 Hgb 14.3 Hct 42.5 MCV 95.5 MCH 32.2 MCHC 33.7 RDW 12.7 Plt Count 209 D MPV 9.8 Sodium 140 Potassium 4.2 Chloride 105 Carbon Dioxide 27 Anion Gap 8 BUN 15 Creatinine 1.1 D Creat Clearance w eGFR > 60 Random Glucose 97 Calcium 8.8 Total Bilirubin 0.6 D AST 105 H D ALT 231 H D Alkaline Phosphatase 112 Total Protein 8.3 H Albumin 4.1 D Urine Color Yellow Urine Appearance Clear Urine pH 5.0 D Ur Specific [place] 1.023 Urine Protein Negative Urine Glucose (UA) Negative Urine Ketones Negative Urine Blood Negative Urine Nitrite Negative Urine Bilirubin Negative Urine Urobilinogen 2.0 Ur Leukocyte Esterase Negative RPR Titer 08/02/17 08/04/17 05:45 07:30 WBC RBC Hgb Hct MCV MCH MCHC RDW Plt Count MPV Sodium Potassium Chloride Carbon Dioxide Anion Gap BUN Creatinine Creat Clearance w eGFR Random Glucose Calcium Total Bilirubin AST 104 H ALT 218 H Alkaline Phosphatase Total Protein Albumin Urine Color Urine Appearance Urine pH Ur Specific [place] Urine Protein Urine Glucose (UA) Urine Ketones Urine Blood Urine Nitrite Urine Bilirubin Urine Urobilinogen Ur Leukocyte Esterase RPR Titer Nonreactive LABS NOTED. Assessment: 08/06/17 19:01 COMPLETION OF DETOX REGIMEN. Plan: PATIENT SCHEDULED FOR DISCHARGE TODAY, WILL GO TO [facility] OUTPATIENT [facility]GRAM ([facility]) FOR AFTERCARE.
--- NOTE | 2017-08-06 19:04 | DS ---
[facility] Detox Discharge Summary Admission Date: 08/01/17 Discharge Date: 08/06/17 - History Present History: Opioid Dependence Additional Comments: PATIENT GOING TO '[facility]' OUTPATIENT PROGRAM ([facility]) FOR AFTERCARE. PATIENT WAS DISCHARGED FROM DETOX UNIT IN STABLE MEDICAL CONDITION. Pertinent Past History: Hep C, Weight Loss, Nicotine Dependence, Depression, Insomnia. - Physical Exam Results Vital Signs: Vital Signs Temperature 97.1 F L 08/06/17 06:46 Pulse Rate 55 L 08/06/17 06:46 Respiratory Rate 18 08/06/17 06:46 Blood Pressure 98/56 08/06/17 06:46 O2 Sat by Pulse Oximetry (%) Pertinent Admission Physical Exam Findings: WITHDRAWAL SYMPTOMS. Laboratory Tests 08/01/17 08/02/17 08/02/17 Unknown 05:45 05:45 WBC 5.3 RBC 4.45 Hgb 14.3 Hct 42.5 MCV 95.5 MCH 32.2 MCHC 33.7 RDW 12.7 Plt Count 209 D MPV 9.8 Sodium 140 Potassium 4.2 Chloride 105 Carbon Dioxide 27 Anion Gap 8 BUN 15 Creatinine 1.1 D Creat Clearance w eGFR > 60 Random Glucose 97 Calcium 8.8 Total Bilirubin 0.6 D AST 105 H D ALT 231 H D Alkaline Phosphatase 112 Total Protein 8.3 H Albumin 4.1 D Urine Color Yellow Urine Appearance Clear Urine pH 5.0 D Ur Specific [place] 1.023 Urine Protein Negative Urine Glucose (UA) Negative Urine Ketones Negative Urine Blood Negative Urine Nitrite Negative Urine Bilirubin Negative Urine Urobilinogen 2.0 Ur Leukocyte Esterase Negative RPR Titer 08/02/17 08/04/17 05:45 07:30 WBC RBC Hgb Hct MCV MCH MCHC RDW Plt Count MPV Sodium Potassium Chloride Carbon Dioxide Anion Gap BUN Creatinine Creat Clearance w eGFR Random Glucose Calcium Total Bilirubin AST 104 H ALT 218 H Alkaline Phosphatase Total Protein Albumin Urine Color Urine Appearance Urine pH Ur Specific [place] Urine Protein Urine Glucose (UA) Urine Ketones Urine Blood Urine Nitrite Urine Bilirubin Urine Urobilinogen Ur Leukocyte Esterase RPR Titer Nonreactive LABS NOTED. - Treatment Hospital Course: Detox Protocol Followed, Detoxed Safely, Responded well, Discharged Condition Good Patient has Accepted a Rehab Referral to: PT GOING TO [facility] OUTPATIENT PROGRAM FOR AFTERCARE. - Medication Discharge Medications: Ambulatory Orders NK [No Known Home Medication] 12/25/16 - Diagnosis (1) Nicotine dependence Status: Acute Qualifiers: Nicotine product type: cigarettes Substance use status: in withdrawal Qualified Code(s): F17.213 - Nicotine dependence, cigarettes, with withdrawal (2) Opioid dependence with withdrawal Status: Acute (3) Weight loss Status: Acute (4) Hepatitis C Status: Chronic Qualifiers: Viral hepatitis chronicity: chronic Hepatic coma status: without hepatic coma Qualified Code(s): B18.2 - Chronic viral hepatitis C (5) Insomnia Status: Acute Qualifiers: Insomnia type: unspecified Qualified Code(s): G47.00 - Insomnia, unspecified - AMA Did Patient Leave Against Medical Advice: No
== END 2017-08-06 09:38 | disposition home or self-care (01) | DRG 773 ==
LOC: YASAS 10:33 → Y3N 14:47
PROVIDERS: ADMIT Internal Medicine; ATTEND Internal Medicine
PROC: HZ2ZZZZ Detoxification Services for Substance Abuse Treatment (ICD-10-PCS; principal; 2017-08-01)
DX: F11.23 Opioid dependence with withdrawal (principal); F17.213 Nicotine dependence, cigarettes, with withdrawal; B18.2 Chronic viral hepatitis C; G47.00 Insomnia, unspecified; Z85.828 Personal history of other malignant neoplasm of skin; R00.1 Bradycardia, unspecified; Z87.898 Personal history of other specified conditions
CPT/HCPCS: 36415; 80053; 81003; 84450; 84460; 85027; 86593; 93005; 93010

== ENCOUNTER 2017-09-15 13:21 | Inpatient (IN) | payer OTHER ==
[2017-09-15 14:32] VITALS: BMI 23.6
--- NOTE | 2017-09-15 17:44 | HP ---
COWS - Scale Resting Pulse: 1= ND 81-100 Sweatin= Chills/Flushing Restless Observation: 1= Difficult to Sit Still Pupil Size: 1= Pupils >than Normal Bone or Joint Aches: 2= Severe Diffuse Aches Runny Nose/ Eye Tearin= Runny Nose/Eyes GI Upset > 30mins: 2= Nausea/Diarrhea Tremor Observation: 1= Tremor [place], Not Seen Yawning Observation: 1= 1-2x During Session Anxiety or Irritability: 1=Feels Anxious/Irritable Goose Flesh Skin: 3=Piloerection COWS Score: 16 CIWA Score - CIWA Score Nausea/Vomitin-Mild Nausea/No Vomiting Muscle Tremors: 2 Anxiety: 3 Agitation: 1-Slight > Activity Paroxysmal Sweats: 2 Orientation: 1-Uncertain about Date Tacttile Disturbances: 0-None Auditory Disturbances: 0-None Visual Disturbances: 0-None Headache: 2-Mild CIWA-Ar Total Score: 12 Admission ROS S - HPI Chief Complaint: WITHDRAWAL SYMPTOMS Allergies/Adverse Reactions: Allergies Allergy/AdvReac Type Severity Reaction Status Date / Time No Known Allergies Allergy Verified 09/15/17 16:58 History of Present Illness: 47 Y.O. WITH A HISTORY OF HEROIN, COCAINE AND XANAX DEPENDENCE IS HERE SEEKING DETOX. HE WAS LAST HERE IN 07/2017. LONGEST PERIOD CLEAN HAS BEEN 1 YEAR. Exam Limitations: No Limitations - Ebola screening Have you traveled outside of the country in the last 21 days: No Have you had contact with anyone from an Ebola affected area: No Have you been sick,other than usual withdrawal symptoms: No Do you have a fever: No - Review of Systems Constitutional: Chills, Diaphoresis, Loss of Appetite, Unintentional Wgt. Loss EENT: reports: Tearing, Nose Congestion Respiratory: reports: No Symptoms reported Cardiac: reports: No Symptoms Reported GI: reports: Diarrhea, Abdominal cramping : reports: No Symptoms Reported Musculoskeletal: reports: Back Pain Integumentary: reports: No Symptoms Reported Neuro: reports: Tremors Endocrine: reports: No Symptoms Reported Hematology: reports: No Symptoms Reported Psychiatric: reports: Judgement Intact, Mood/Affect Appropiate, Anxious Other Systems: Reviewed and Negative Patient History - Patient Medical History Hx Anemia: No Hx Asthma: No Hx Chronic Obstructive Pulmonary Disease (COPD): No Hx Cancer: No Hx Cardiac Disorders: No Hx Congestive Heart Failure: No Hx Hypertension: No Hx Hypercholesterolemia: No Hx Pacemaker: No HX Cerebrovascular Accident: No Hx Seizures: No Hx Dementia: No Hx Diabetes: No Hx Gastrointestinal Disorders: No Hx Liver Disease: Yes Hx Genitourinary Disorders: No Hx Sexually Transmitted Disorders: No Hx Renal Disease (ESRD): No Hx Thyroid Disease: No Hx Human Immunodeficiency Virus (HIV): No Hx Hepatitis C: Yes (needs treatment) Hx Depression: No Hx Suicide Attempt: No Hx Bipolar Disorder: No Hx Schizophrenia: No - Patient Surgical History Past Surgical History: Yes Hx Neurologic Surgery: No Hx Cataract Extraction: No Hx Cardiac Surgery: No Hx Lung Surgery: No Hx Breast Surgery: No Hx Breast Biopsy: No Hx Abdominal Surgery: No Hx Appendectomy: No Hx Cholecystectomy: No Hx Genitourinary Surgery: No Hx Section: No Hx Orthopedic Surgery: No Other Surgical History: left shoulder skin ca 2009 Anesthesia Reaction: No - PPD History Previous Implant?: Yes Documented Results: Negative w/proof Implanted On Prior R Admission?: Yes Date: 12/27/16 Results: 0 PPD to be Administered?: No - Reproductive History Patient is a Female of Child Bearing Age (11 -55 yrs old): No - Smoking Cessation Smoking history: Current every day smoker Have you smoked in the past 12 months: Yes Aproximately how many cigarettes per day: 20 Cigars Per Day: 0 Hx Chewing Tobacco Use: No Initiated information on smoking cessation: Yes 'Breaking Loose' booklet given: 09/15/17 - Substance & Tx. History Hx Alcohol Use: No Hx Substance Use: Yes Substance Use Type: Cocaine, Heroin, Tranquilizers Hx Substance Use Treatment: Yes (DETOX: 07/2017) - Substances Abused Alprazolam (Xanax) Route: Oral Frequency: Daily Amount used: 5mg Age of first use: 31 Date of Last Use: 09/15/17 Heroin Route: Injection Frequency: Daily Amount used: 8 bags Age of first use: 16 Date of Last Use: 09/15/17 Cocaine Route: Injection Frequency: Daily Amount used: 1.5mg Age of first use: 17 Date of Last Use: 09/15/17 Family Disease History - Family Disease History Family Disease History: CA: Father (colon ), Mother (colon ), Other: Father, Mother Admission Physical Exam BHS - Vital Signs Vital Signs: Vital Signs - 24 hr 09/15/17 14:25 Temperature 97.2 F L Pulse Rate 83 Respiratory 20 Rate Blood Pressure 141/80 - Physical General Appearance: Yes: Irritable, Sweating, Anxious HEENTM: Yes: Hearing grossly Normal, Normal ENT Inspection, Normocephalic Respiratory: Yes: Chest Non-Tender, Lungs Clear, Normal Breath Sounds, No Respiratory Distress, No Accessory Muscle Use Neck: Yes: No masses,lesions,Nodules, Trachea in good position Breast: Yes: Breast Exam Deferred Cardiology: Yes: Regular Rhythm, Regular Rate Abdominal: Yes: Normal Bowel Sounds, Non Tender, Flat, Soft Genitourinary: Yes: Other (NO COMPLAINTS REPORTED) Back: Yes: Normal Inspection Musculoskeletal: Yes: Back pain Extremities: Yes: Normal Capillary Refill, Normal Inspection, Normal Range of Motion, Non-Tender Neurological: Yes: Alert, Normal Mood/Affect, Normal Response Integumentary: Yes: Normal Color, Dry, Warm, Track [place] - Diagnostic (1) Nicotine dependence Current Visit: Yes Status: Chronic Qualifiers: Nicotine product type: cigarettes Substance use status: in withdrawal Qualified Code(s): F17.213 - Nicotine dependence, cigarettes, with withdrawal (2) Opioid dependence with withdrawal Current Visit: Yes Status: Chronic (3) Weight loss Current Visit: Yes Status: Chronic (4) Hepatitis C Current Visit: Yes Status: Chronic Qualifiers: Viral hepatitis chronicity: chronic Hepatic coma status: without hepatic coma Qualified Code(s): B18.2 - Chronic viral hepatitis C (5) Sedative, hypnotic or anxiolytic dependence with withdrawal, uncomplicated Current Visit: Yes Status: Chronic (6) Cocaine dependence Current Visit: Yes Status: Chronic Cleared for Admission [facility] - Detox or Rehab [facility] Level of Care: Medically Managed Detox Regimen/Protocol: Methadone/Valium [facility] Breath Alcohol Content Breath Alcohol Content: 0 Urine Drug Screen - Results Drug Screen Negative: No Urine Drug Screen Results: GUERLINE-Cocaine, OPI-Opiates, BZO-Benzodiazepines
[2017-09-15] MEDS ORDERED: LOPERAMIDE HCL 2 MG CAPSULE PO PRN (17:51)
[2017-09-15] MEDS ORDERED: MAG HYDROX/AL HYDROX/SIMETH 30 ML UNIT-DOSE CUP PO PRN (17:51)
[2017-09-15] MEDS ORDERED: MAGNESIUM HYDROX 2400MG/30ML ORAL SUSPENSION 30 ML CUP PO PRN (17:51)
[2017-09-15] MEDS ORDERED: hydrOXYzine PAMOATE 50 MG CAPSULE (FP) PO PRN (17:51)
[2017-09-15] MEDS ORDERED: ACETAMINOPHEN 325 MG TABLET (FP) PO PRN (17:51)
[2017-09-15] MEDS ORDERED: IBUPROFEN 400 MG TABLET (FP) PO PRN (17:51)
[2017-09-15] MEDS ORDERED: MAGNESIUM CITRATE 300 ML BOTTLE PO PRN (17:51)
[2017-09-15] MEDS ORDERED: P-EPHED 60MG/TRIPROLIDI 2.5MG TABLET PO PRN (17:51)
[2017-09-15] MEDS ORDERED: MENTHOL/PHENOL 1 EACH UD MM PRN (17:51)
[2017-09-15] MEDS ORDERED: guaiFENesin/D-METHORPHAN HB 10 ML UNIT-DOSE CUPS PO PRN (17:51)
[2017-09-15] MEDS ORDERED: diazePAM 5 MG TABLET PO ONE (18:45)
[2017-09-15] MEDS ORDERED: METHADONE HCL 10 MG TABLET (FOR DETOX USE ONLY) PO ONE ×2 (18:45→23:00)
[2017-09-15] MEDS ORDERED: MELATONIN 5 MG TABLETS PO PRN (22:00)
[2017-09-15] MEDS ORDERED: diphenhydrAMINE HCL 25 MG CAPSULE (FP) PO PRN (22:00)
[2017-09-15] MEDS: diazePAM 5 MG TABLET PO SCH (22:06)
[2017-09-15] MEDS: THIAMINE HCL 100 MG TABLET (FP) PO SCH (22:06)
[2017-09-15 23:03] LABS: URINE APPEARANCE CLOUDY; URINE BILIRUBIN NEGATIVE (<2.0 mg/dL); URINE BLOOD 3+ (NEGATIVE); URINE COLOR AMBER; URINE GLUCOSE (UA) NEGATIVE (NEGATIVE); URINE KETONE NEGATIVE (NEGATIVE); URINE LEUK ESTERASE NEGATIVE (NEGATIVE); URINE NITRITE NEGATIVE (NEGATIVE); URINE PROTEIN NEGATIVE (NEGATIVE); URINE UROBILINOGEN 4.0 E.U/dl mg/dL (0.2-1.0)
[2017-09-15 23:08] LABS: URINE HYALINE CAST 1 /lpf; URINE MUCUS RARE
[2017-09-16] MEDS: diazePAM 5 MG TABLET PO SCH ×3 (05:34→21:20)
[2017-09-16] MEDS ORDERED: METHADONE HCL 10 MG TABLET (FOR DETOX USE ONLY) PO SCH (10:00)
--- NOTE | 2017-09-16 10:00 | EKG ---
Test Reason : Blood Pressure : / mmHG Vent. Rate : 063 BPM Atrial Rate : 063 BPM P-R Int : 136 ms QRS Dur : 096 ms QT Int : 434 ms P-R-T Axes : 074 086 059 degrees QTc Int : 444 ms NORMAL SINUS RHYTHM NON-SPECIFIC INTRA-VENTRICULAR CONDUCTION DELAY WHEN COMPARED WITH ECG OF 01-AUG-2017 18:19, NO SIGNIFICANT CHANGE WAS FOUND Confirmed by DEJAH MINOR MD ([id number]) on 09/16/2017 10:00:09 AM Referred By: Confirmed By:DEJAH MINOR MD
[2017-09-16] MEDS: diazePAM 5 MG TABLET PO PRN (10:06)
[2017-09-16] MEDS: NICOTINE 21 MG/24 HOURS TOPICAL PATCH TD SCH (10:06)
[2017-09-16] MEDS: PRENATAL VITAMINS W/ FOLIC ACID TABLET (FP) PO SCH (10:06)
[2017-09-16 10:45] LABS: HEMATOCRIT 40.9 % (35.4-49); HEMOGLOBIN 13.8 GM/dL (11.7-16.9); MCH 32.1 pg (25.7-33.7); MCHC 33.7 g/dl (32.0-35.9); MEAN CELL VOLUME 95.1 fl (80-96); MEAN PLT VOLUME 9.2 fl (7.5-11.1); PLATELET COUNT 200 K/MM3 (134-434); RDW 13.1 % (11.9-15.9); WHITE BLOOD COUNT 5.3 K/mm3 (4.0-10.0)
[2017-09-16 10:51] LABS: ALBUMIN 3.3 g/dl (3.4-5.0); ALK PHOS 96 U/L (45-117); ANION GAP 6 (8-16); BILIRUBIN,TOTAL 0.3 mg/dL (0.2-1.0); BLOOD UREA NITROGEN 18 mg/dL (7-18); CALCIUM 8.7 mg/dL (8.5-10.1); CHLORIDE 107 mmol/L (98-107); CO2 30 mmol/L (21-32); GLUCOSE,RANDOM 109 mg/dL (74-106); POTASSIUM 3.9 mmol/L (3.5-5.1); SGOT/AST 95 U/L (15-37); SGPT/ALT 166 U/L (12-78); SODIUM 143 mmol/L (136-145); TOT PROT 7.1 g/dl (6.4-8.2)
--- NOTE | 2017-09-16 11:43 | PN ---
[facility] CIWA - CIWA Score Nausea/Vomitin-No Nausea/No Vomiting Muscle Tremors: 3 Anxiety: 4-Mod. Anxious/Guarded Agitation: 0-Normal Activity Paroxysmal Sweats: 3 Orientation: 2-Disoriented Date<2 days Tacttile Disturbances: 3-Moderate Itch/Numb/Burn Auditory Disturbances: 0-None Visual Disturbances: 2-Mild Sensitivity Headache: 0-None Present CIWA-Ar Total Score: 17 BHS COWS - Scale Resting Pulse: 0= SC 80 or Below Sweatin= Chills/Flushing Restless Observation: 1= Difficult to Sit Still Pupil Size: 0= Normal to Room Light Bone or Joint Aches: 4=Acute Joint/Muscle Pain Runny Nose/ Eye Tearin= None GI Upset > 30mins: 1= Stomach Cramp Tremor Observation of Outstretched Hands: 0= None Yawning Observation: 1= 1-2x During Session Anxiety or Irritability: 2=Irritable/Anxious Goose Flesh Skin: 3=Piloerection COWS Score: 13 S Progress Note (SOAP) Subjective: Body Aches, Anxious, Fatigue, Sweating. Objective: PATIENT A & O X 2 (UNCERTAIN ABOUT CURRENT DAY / DATE). PATIENT OBSERVED AMBULATING ON UNIT. NO ACUTE DISTRESS. PATIENT REPORTS BILATERAL LEG PAIN, UPPER AND LOWER LEG X APPROX. 5 DAYS. PATIENT DENIES ANY HISTORY OF RECENT LEG OR BACK INJURY. PATIENT DENIES NUMBNESS , TINGLING AND WEAKNESS IN BILATERAL LEGS. NO ERYTHEMA, SWELLING, WOUNDS, OR BLEEDING, OR UNUSUAL DISCHARGE NOTED IN EITHER LEG. 09/16/17 11:39 Vital Signs Temperature 95.9 F L 09/16/17 09:28 Pulse Rate 62 09/16/17 09:28 Respiratory Rate 18 09/16/17 09:28 Blood Pressure 110/57 09/16/17 09:28 O2 Sat by Pulse Oximetry (%) Laboratory Tests 09/15/17 09/16/17 09/16/17 21:02 07:00 07:00 WBC 5.3 RBC 4.30 Hgb 13.8 Hct 40.9 MCV 95.1 MCH 32.1 MCHC 33.7 RDW 13.1 Plt Count 200 MPV 9.2 Sodium 143 Potassium 3.9 Chloride 107 Carbon Dioxide 30 Anion Gap 6 L BUN 18 Creatinine 1.0 Creat Clearance w eGFR > 60 Random Glucose 109 H Calcium 8.7 Total Bilirubin 0.3 D AST 95 H ALT 166 H D Alkaline Phosphatase 96 Total Protein 7.1 Albumin 3.3 L Urine Color [place] Urine Appearance Cloudy Urine pH 5.0 Ur Specific [place] 1.025 Urine Protein Negative Urine Glucose (UA) Negative Urine Ketones Negative Urine Blood 3+ H Urine Nitrite Negative Urine Bilirubin Negative Urine Urobilinogen 4.0 e.u/dl Ur Leukocyte Esterase Negative Urine WBC (Auto) 8 Urine RBC (Auto) 126 Hyaline Casts 1 Urine Mucus Rare RPR Titer 09/16/17 07:00 WBC RBC Hgb Hct MCV MCH MCHC RDW Plt Count MPV Sodium Potassium Chloride Carbon Dioxide Anion Gap BUN Creatinine Creat Clearance w eGFR Random Glucose Calcium Total Bilirubin AST ALT Alkaline Phosphatase Total Protein Albumin Urine Color Urine Appearance Urine pH Ur Specific [place] Urine Protein Urine Glucose (UA) Urine Ketones Urine Blood Urine Nitrite Urine Bilirubin Urine Urobilinogen Ur Leukocyte Esterase Urine WBC (Auto) Urine RBC (Auto) Hyaline Casts Urine Mucus RPR Titer Nonreactive LABS NOTED. HIV AB RESULT PENDING. 09/16/17 11:44 Assessment: 09/16/17 11:43 WITHDRAWAL SYMPTOMS. Plan: CONTINUE DETOX, INCREASE DAILY PO FLUID INTAKE. NAPROXEN BID FOR BODY / LEG ACHES. REPEAT UA, AST, AND ALT FOR ADMISSION ABNORMALITIES.
[2017-09-16] MEDS ORDERED: NAPROXEN 250 MG TABLET (FP) PO ONE (11:50)
[2017-09-16] MEDS: BACITRACIN 0.9 GM PACKET TP SCH ×2 (11:58→21:20)
--- NOTE | 2017-09-16 14:23 | CONSULT ---
[facility] Psychiatric Consult - Data Date of interview: 09/16/17 Admission source: [facility] Identifying data: Readmission to [facility] for this 47 y/o male seeking detox treatment on for heroin,cocaine and benzodiazepine dependence.Patient is single without dependents,homeless,unemployed and deprived of any source of income. Substance Abuse History: Confirmed by patient in this session.Details in current [facility] report : Smoking history: Current every day smoker. Have you smoked in the past 12 months: Yes. Aproximately how many cigarettes per day: 20. Cigars Per Day: 0. Hx Chewing Tobacco Use: No. Initiated information on smoking cessation: Yes. 'Breaking Loose' booklet given: 09/15/17. - Substance & Tx. History. Hx Alcohol Use: No. Hx Substance Use: Yes. Substance Use Type : Cocaine, Heroin, Tranquilizers. Hx Substance Use Treatment: Yes (DETOX: 2017). - Substances Abused. Alprazolam (Xanax). Route: Oral. Frequency: Daily. Amount used: 5mg. Age of first use: 31. Date of Last Use: 09/15/17. * * Heroin. Route: Injection. Frequency: Daily. Amount used: 8 bags. Age of first use: 16. Date of Last Use: 09/15/17. Cocaine. Route: Injection. Frequency: Daily. Amount used: 1.5mg. Age of first use: 17. Date of Last Use : 09/15/17 Medical History: Hepatitis C and a history of skin cancer (right shoulder). Psychiatric History: Patient admits to a history of two psychiatric hospitalizations at [facility] ([facility]-2 unit) in 2005.Diagnosed with MDD and Anxiety Disorder.Treated with a combination of seroquel + trazodone (doses not recalled)." I have not taken these medications since 2005 after they discharged me." No contact with psychiatric OPD care providers.Mr Jin endorses a history of one suicide attempt (June 2007) via overdose with heroin. Physical/Sexual Abuse/Trauma History: Patient denies. Additional Comment: Urine Drug Screen Results: GUERLINE-Cocaine, OPI-Opiates, BZO- Benzodiazepines.Noted. Mental Status Exam - Mental Status Exam Alert and Oriented to: Time, Place, Person Cognitive Function: Good Patient Appearance: Well Groomed Mood: Nervous, Anxious Affect: Appropriate Patient Behavior: Fatigued, Appropriate, Cooperative Speech Pattern: Clear, Appropriate Voice Loudness: Normal Thought Process: Intact, Goal Oriented Thought Disorder: Not Present Hallucinations: Denies Suicidal Ideation: Denies Homicidal Ideation: Denies Insight/Judgement: Poor Sleep: Poorly, Difficulty falling asleep Appetite: Good Muscle strength/Tone: Normal Gait/Station: Normal Psychiatric Findings - Problem List ([place] 1, 2,3) (1) Opioid dependence with withdrawal Current Visit: Yes Status: Acute (2) Sedative, hypnotic or anxiolytic dependence with withdrawal, uncomplicated Current Visit: Yes Status: Acute (3) Cocaine dependence Current Visit: Yes Status: Acute Qualifiers: Substance use status: uncomplicated Qualified Code(s): F14.20 - Cocaine dependence, uncomplicated (4) Nicotine dependence Current Visit: Yes Status: Acute Qualifiers: Nicotine product type: cigarettes Substance use status: in withdrawal Qualified Code(s): F17.213 - Nicotine dependence, cigarettes, with withdrawal (5) Substance induced mood disorder Current Visit: Yes Status: Suspected (6) Insomnia Current Visit: Yes Status: Acute Qualifiers: Insomnia type: unspecified Qualified Code(s): G47.00 - Insomnia, unspecified - Initial Treatment Plan Initial Treatment Plan: Psychoeducation.Sleep hygiene.Detoxification in progress.Patient declines to resume trazodone or seroquel.Will address insomnia with ambien 10 mg po hs prn.Patient is informed of the risk of parasomnias.Agrees with this careplan.Observation.
[2017-09-16] MEDS: NAPROXEN 250 MG TABLET (FP) PO SCH (16:59)
[2017-09-16 18:40] LABS: URINE APPEARANCE SLCLOUDY; URINE BILIRUBIN NEGATIVE (<2.0 mg/dL); URINE BLOOD NEGATIVE (NEGATIVE); URINE COLOR YELLOW; URINE GLUCOSE (UA) NEGATIVE (NEGATIVE); URINE KETONE NEGATIVE (NEGATIVE); URINE LEUK ESTERASE NEGATIVE (NEGATIVE); URINE NITRITE NEGATIVE (NEGATIVE); URINE PROTEIN NEGATIVE (NEGATIVE)
[2017-09-16] MEDS: THIAMINE HCL 100 MG TABLET (FP) PO SCH (21:20)
[2017-09-16] MEDS ORDERED: ZOLPIDEM TARTRATE 10 MG TABLET (PARK CARE ONLY) PO PRN (22:00)
[2017-09-17] MEDS: diazePAM 5 MG TABLET PO PRN ×2 (08:43→13:46)
[2017-09-17] MEDS: NAPROXEN 250 MG TABLET (FP) PO SCH ×2 (09:30→17:42)
[2017-09-17] MEDS: METHADONE HCL 5 MG TABLET (FOR DETOX USE ONLY) PO SCH (10:08)
[2017-09-17] MEDS: diazePAM 5 MG TABLET PO SCH ×2 (10:08→22:33)
[2017-09-17] MEDS: PRENATAL VITAMINS W/ FOLIC ACID TABLET (FP) PO SCH (10:09)
[2017-09-17] MEDS: NICOTINE 21 MG/24 HOURS TOPICAL PATCH TD SCH (10:10)
[2017-09-17] MEDS: BACITRACIN 0.9 GM PACKET TP SCH ×2 (10:10→22:33)
--- NOTE | 2017-09-17 13:12 | PN ---
S CIWA - CIWA Score Nausea/Vomitin-No Nausea/No Vomiting Muscle Tremors: None Anxiety: 4-Mod. Anxious/Guarded Agitation: 4-Moderately Restless Paroxysmal Sweats: 2 Orientation: 0-Oriented Tacttile Disturbances: 2-Mild Itch/Numbness/Burn Auditory Disturbances: 0-None Visual Disturbances: 1-Very Mild Sensitivity Headache: 0-None Present CIWA-Ar Total Score: 13 BHS COWS - Scale Resting Pulse: 0= SC 80 or Below Sweatin= No chills or Flushing Restless Observation: 1= Difficult to Sit Still Pupil Size: 0= Normal to Room Light Bone or Joint Aches: 4=Acute Joint/Muscle Pain Runny Nose/ Eye Tearin= Nasal Congestion GI Upset > 30mins: 0= None Tremor Observation of Outstretched Hands: 0= None Yawning Observation: 1= 1-2x During Session Anxiety or Irritability: 2=Irritable/Anxious Goose Flesh Skin: 3=Piloerection COWS Score: 12 BHS Progress Note (SOAP) Subjective: Body Aches, Anxious, Interrupted Sleep. Objective: PATIENT A & O X 3, OBSERVED AMBULATING ON UNIT. NO ACUTE DISTRESS. 09/17/17 13:11 Vital Signs Temperature 96 F L 09/17/17 09:03 Pulse Rate 68 09/17/17 09:03 Respiratory Rate 20 09/17/17 09:03 Blood Pressure 118/73 09/17/17 09:03 O2 Sat by Pulse Oximetry (%) Laboratory Tests 09/15/17 09/16/17 09/16/17 21:02 07:00 07:00 WBC 5.3 RBC 4.30 Hgb 13.8 Hct 40.9 MCV 95.1 MCH 32.1 MCHC 33.7 RDW 13.1 Plt Count 200 MPV 9.2 Sodium Potassium Chloride Carbon Dioxide Anion Gap BUN Creatinine Creat Clearance w eGFR Random Glucose Calcium Total Bilirubin AST ALT Alkaline Phosphatase Total Protein Albumin Urine Color Rach Urine Appearance Cloudy Urine pH 5.0 Ur Specific [place] 1.025 Urine Protein Negative Urine Glucose (UA) Negative Urine Ketones Negative Urine Blood 3+ H Urine Nitrite Negative Urine Bilirubin Negative Urine Urobilinogen 4.0 e.u/dl Ur Leukocyte Esterase Negative Urine WBC (Auto) 8 Urine RBC (Auto) 126 Hyaline Casts 1 Urine Mucus Rare RPR Titer HIV 1&2 Antibody Screen Negative HIV P24 Antigen Negative 09/16/17 09/16/17 09/16/17 07:00 07:00 13:20 WBC RBC Hgb Hct MCV MCH MCHC RDW Plt Count MPV Sodium 143 Potassium 3.9 Chloride 107 Carbon Dioxide 30 Anion Gap 6 L BUN 18 Creatinine 1.0 Creat Clearance w eGFR > 60 Random Glucose 109 H Calcium 8.7 Total Bilirubin 0.3 D AST 95 H ALT 166 H D Alkaline Phosphatase 96 Total Protein 7.1 Albumin 3.3 L Urine Color Yellow Urine Appearance Slcloudy Urine pH 6.0 Ur Specific [place] 1.021 Urine Protein Negative Urine Glucose (UA) Negative Urine Ketones Negative Urine Blood Negative Urine Nitrite Negative Urine Bilirubin Negative Urine Urobilinogen 2.0 Ur Leukocyte Esterase Negative Urine WBC (Auto) Urine RBC (Auto) Hyaline Casts Urine Mucus RPR Titer Nonreactive HIV 1&2 Antibody Screen HIV P24 Antigen LABS NOTED. RESULTS OF REPEAT UA NOTED. 09/17/17 13:12 Assessment: 09/17/17 13:11 WITHDRAWAL SYMPTOMS. Plan: CONTINUE DETOX. INCREASE DAILY PO FLUID INTAKE.
[2017-09-17] MEDS: THIAMINE HCL 100 MG TABLET (FP) PO SCH (22:32)
[2017-09-18] MEDS: NAPROXEN 250 MG TABLET (FP) PO SCH ×2 (09:12→17:47)
[2017-09-18] MEDS: NICOTINE 21 MG/24 HOURS TOPICAL PATCH TD SCH (10:11)
[2017-09-18] MEDS: BACITRACIN 0.9 GM PACKET TP SCH ×2 (10:11→22:34)
[2017-09-18] MEDS: METHADONE HCL 5 MG TABLET (FOR DETOX USE ONLY) PO SCH (10:11)
[2017-09-18] MEDS: diazePAM 5 MG TABLET PO SCH ×2 (10:11→22:35)
[2017-09-18] MEDS: PRENATAL VITAMINS W/ FOLIC ACID TABLET (FP) PO SCH (10:11)
[2017-09-18 10:22] LABS: SGOT/AST 83 U/L (15-37); SGPT/ALT 168 U/L (12-78)
--- NOTE | 2017-09-18 14:23 | PN ---
BHS Progress Note (SOAP) Subjective: Anxious, sweating, interrupted sleep Objective: 09/18/17 14:21 Last Vital Signs Temp Pulse Resp BP Pulse Ox 98.4 F 65 18 116/66 09/18/17 13:43 09/18/17 13:43 09/18/17 13:43 09/18/17 13:43 Laboratory Tests 09/15/17 09/16/17 09/16/17 21:02 07:00 07:00 WBC 5.3 RBC 4.30 Hgb 13.8 Hct 40.9 MCV 95.1 MCH 32.1 MCHC 33.7 RDW 13.1 Plt Count 200 MPV 9.2 Sodium Potassium Chloride Carbon Dioxide Anion Gap BUN Creatinine Creat Clearance w eGFR Random Glucose Calcium Total Bilirubin AST ALT Alkaline Phosphatase Total Protein Albumin Urine Color Rach Urine Appearance Cloudy Urine pH 5.0 Ur Specific [place] 1.025 Urine Protein Negative Urine Glucose (UA) Negative Urine Ketones Negative Urine Blood 3+ H Urine Nitrite Negative Urine Bilirubin Negative Urine Urobilinogen 4.0 e.u/dl Ur Leukocyte Esterase Negative Urine WBC (Auto) 8 Urine RBC (Auto) 126 Hyaline Casts 1 Urine Mucus Rare RPR Titer HIV 1&2 Antibody Screen Negative HIV P24 Antigen Negative 09/16/17 09/16/17 09/16/17 07:00 07:00 13:20 WBC RBC Hgb Hct MCV MCH MCHC RDW Plt Count MPV Sodium 143 Potassium 3.9 Chloride 107 Carbon Dioxide 30 Anion Gap 6 L BUN 18 Creatinine 1.0 Creat Clearance w eGFR > 60 Random Glucose 109 H Calcium 8.7 Total Bilirubin 0.3 D AST 95 H ALT 166 H D Alkaline Phosphatase 96 Total Protein 7.1 Albumin 3.3 L Urine Color Yellow Urine Appearance Slcloudy Urine pH 6.0 Ur Specific [place] 1.021 Urine Protein Negative Urine Glucose (UA) Negative Urine Ketones Negative Urine Blood Negative Urine Nitrite Negative Urine Bilirubin Negative Urine Urobilinogen 2.0 Ur Leukocyte Esterase Negative Urine WBC (Auto) Urine RBC (Auto) Hyaline Casts Urine Mucus RPR Titer Nonreactive HIV 1&2 Antibody Screen HIV P24 Antigen 09/18/17 06:00 WBC RBC Hgb Hct MCV MCH MCHC RDW Plt Count MPV Sodium Potassium Chloride Carbon Dioxide Anion Gap BUN Creatinine Creat Clearance w eGFR Random Glucose Calcium Total Bilirubin AST 83 H ALT 168 H Alkaline Phosphatase Total Protein Albumin Urine Color Urine Appearance Urine pH Ur Specific [place] Urine Protein Urine Glucose (UA) Urine Ketones Urine Blood Urine Nitrite Urine Bilirubin Urine Urobilinogen Ur Leukocyte Esterase Urine WBC (Auto) Urine RBC (Auto) Hyaline Casts Urine Mucus RPR Titer HIV 1&2 Antibody Screen HIV P24 Antigen Labs reviewed Assessment: 09/18/17 14:22 Withdrawal symptoms Plan: Continue detox Encouraged to drink lots of water for hydration
[2017-09-18] MEDS: THIAMINE HCL 100 MG TABLET (FP) PO SCH (22:35)
[2017-09-19] MEDS: NAPROXEN 250 MG TABLET (FP) PO SCH ×2 (09:06→17:06)
[2017-09-19] MEDS ORDERED: METHADONE HCL 10 MG TABLET (FOR DETOX USE ONLY) PO SCH (10:00)
[2017-09-19] MEDS ORDERED: diazePAM 5 MG TABLET PO SCH (10:00)
[2017-09-19] MEDS: NICOTINE 21 MG/24 HOURS TOPICAL PATCH TD SCH (10:03)
[2017-09-19] MEDS: BACITRACIN 0.9 GM PACKET TP SCH ×2 (10:04→22:25)
[2017-09-19] MEDS: PRENATAL VITAMINS W/ FOLIC ACID TABLET (FP) PO SCH (10:04)
--- NOTE | 2017-09-19 11:02 | PN ---
S Progress Note (SOAP) Subjective: REPORTS DETOX PROCEEDING WELL. DECREASED ANXIETY,IRRITABILITY,SWEATS. Objective: 09/19/17 11:01 Vital Signs Temperature 98.4 F 09/19/17 09:14 Pulse Rate 65 09/19/17 09:14 Respiratory Rate 20 09/19/17 09:14 Blood Pressure 114/66 09/19/17 09:14 O2 Sat by Pulse Oximetry (%) Laboratory Last Values WBC 5.3 K/mm3 (4.0-10.0) 09/16/17 07:00 RBC 4.30 M/mm3 (4.00-5.60) 09/16/17 07:00 Hgb 13.8 GM/dL (11.7-16.9) 09/16/17 07:00 Hct 40.9 % (35.4-49) 09/16/17 07:00 MCV 95.1 fl (80-96) 09/16/17 07:00 MCH 32.1 pg (25.7-33.7) 09/16/17 07:00 MCHC 33.7 g/dl (32.0-35.9) 09/16/17 07:00 RDW 13.1 % (11.9-15.9) 09/16/17 07:00 Plt Count 200 K/MM3 (134-434) 09/16/17 07:00 MPV 9.2 fl (7.5-11.1) 09/16/17 07:00 Sodium 143 mmol/L (136-145) 09/16/17 07:00 Potassium 3.9 mmol/L (3.5-5.1) 09/16/17 07:00 Chloride 107 mmol/L (98-107) 09/16/17 07:00 Carbon Dioxide 30 mmol/L (21-32) 09/16/17 07:00 Anion Gap 6 (8-16) L 09/16/17 07:00 BUN 18 mg/dL (7-18) 09/16/17 07:00 Creatinine 1.0 mg/dL (0.7-1.3) 09/16/17 07:00 Creat Clearance w eGFR > 60 (>60) 09/16/17 07:00 Random Glucose 109 mg/dL (74-106) H 09/16/17 07:00 Calcium 8.7 mg/dL (8.5-10.1) 09/16/17 07:00 Total Bilirubin 0.3 mg/dL (0.2-1.0) D 09/16/17 07:00 AST 83 U/L (15-37) H 09/18/17 06:00 ALT 168 U/L (12-78) H 09/18/17 06:00 Alkaline Phosphatase 96 U/L (45-117) 09/16/17 07:00 Total Protein 7.1 g/dl (6.4-8.2) 09/16/17 07:00 Albumin 3.3 g/dl (3.4-5.0) L 09/16/17 07:00 Urine Color Yellow 09/16/17 13:20 Urine Appearance Slcloudy 09/16/17 13:20 Urine pH 6.0 (5.0-8.0) 09/16/17 13:20 Ur Specific [place] 1.021 (1.001-1.035) 09/16/17 13:20 Urine Protein Negative (NEGATIVE) 09/16/17 13:20 Urine Glucose (UA) Negative (NEGATIVE) 09/16/17 13:20 Urine Ketones Negative (NEGATIVE) 09/16/17 13:20 Urine Blood Negative (NEGATIVE) 09/16/17 13:20 Urine Nitrite Negative (NEGATIVE) 09/16/17 13:20 Urine Bilirubin Negative (<2.0 mg/dL) 09/16/17 13:20 Urine Urobilinogen 2.0 mg/dL (0.2-1.0) 09/16/17 13:20 Ur Leukocyte Esterase Negative (NEGATIVE) 09/16/17 13:20 Urine WBC (Auto) 8 /hpf (3-5) 09/15/17 21:02 Urine RBC (Auto) 126 /hpf (0-3) 09/15/17 21:02 Hyaline Casts 1 /lpf 09/15/17 21:02 Urine Mucus Rare 09/15/17 21:02 RPR Titer Nonreactive (NONREACTIVE) 09/16/17 07:00 HIV 1&2 Antibody Screen Negative 09/16/17 07:00 HIV P24 Antigen Negative 09/16/17 07:00 Laboratory Tests 09/15/17 09/16/17 09/16/17 21:02 07:00 07:00 WBC 5.3 RBC 4.30 Hgb 13.8 Hct 40.9 MCV 95.1 MCH 32.1 MCHC 33.7 RDW 13.1 Plt Count 200 MPV 9.2 Sodium Potassium Chloride Carbon Dioxide Anion Gap BUN Creatinine Creat Clearance w eGFR Random Glucose Calcium Total Bilirubin AST ALT Alkaline Phosphatase Total Protein Albumin Urine Color Rach Urine Appearance Cloudy Urine pH 5.0 Ur Specific [place] 1.025 Urine Protein Negative Urine Glucose (UA) Negative Urine Ketones Negative Urine Blood 3+ H Urine Nitrite Negative Urine Bilirubin Negative Urine Urobilinogen 4.0 e.u/dl Ur Leukocyte Esterase Negative Urine WBC (Auto) 8 Urine RBC (Auto) 126 Hyaline Casts 1 Urine Mucus Rare RPR Titer HIV 1&2 Antibody Screen Negative HIV P24 Antigen Negative 09/16/17 09/16/17 09/16/17 07:00 07:00 13:20 WBC RBC Hgb Hct MCV MCH MCHC RDW Plt Count MPV Sodium 143 Potassium 3.9 Chloride 107 Carbon Dioxide 30 Anion Gap 6 L BUN 18 Creatinine 1.0 Creat Clearance w eGFR > 60 Random Glucose 109 H Calcium 8.7 Total Bilirubin 0.3 D AST 95 H ALT 166 H D Alkaline Phosphatase 96 Total Protein 7.1 Albumin 3.3 L Urine Color Yellow Urine Appearance Slcloudy Urine pH 6.0 Ur Specific [place] 1.021 Urine Protein Negative Urine Glucose (UA) Negative Urine Ketones Negative Urine Blood Negative Urine Nitrite Negative Urine Bilirubin Negative Urine Urobilinogen 2.0 Ur Leukocyte Esterase Negative Urine WBC (Auto) Urine RBC (Auto) Hyaline Casts Urine Mucus RPR Titer Nonreactive HIV 1&2 Antibody Screen HIV P24 Antigen 09/18/17 06:00 WBC RBC Hgb Hct MCV MCH MCHC RDW Plt Count MPV Sodium Potassium Chloride Carbon Dioxide Anion Gap BUN Creatinine Creat Clearance w eGFR Random Glucose Calcium Total Bilirubin AST 83 H ALT 168 H Alkaline Phosphatase Total Protein Albumin Urine Color Urine Appearance Urine pH Ur Specific [place] Urine Protein Urine Glucose (UA) Urine Ketones Urine Blood Urine Nitrite Urine Bilirubin Urine Urobilinogen Ur Leukocyte Esterase Urine WBC (Auto) Urine RBC (Auto) Hyaline Casts Urine Mucus RPR Titer HIV 1&2 Antibody Screen HIV P24 Antigen Assessment: 09/19/17 11:02 WITHDRAWAL SX Plan: CONTINUE DETOX
[2017-09-19] MEDS: THIAMINE HCL 100 MG TABLET (FP) PO SCH (22:25)
[2017-09-20] MEDS ORDERED: METHADONE HCL 5 MG TABLET (FOR DETOX USE ONLY) PO SCH (06:00)
[2017-09-20 09:48] VITALS: BP 104/58; PULSE 60; TEMP 98.6
--- NOTE | 2017-09-20 10:18 | PN ---
S Progress Note (SOAP) Subjective: DETOX COMPLETED. ALERT O X 3. NAD. PT WAS REFERRED TO [facility] TODAY AND WILL BE PICKED UP BY THEIR TRANSPORTATION. Objective: 09/20/17 10:17 Vital Signs Temperature 98.6 F 09/20/17 09:48 Pulse Rate 60 09/20/17 09:48 Respiratory Rate 20 09/20/17 09:48 Blood Pressure 104/58 09/20/17 09:48 O2 Sat by Pulse Oximetry (%) Laboratory Tests 09/15/17 09/16/17 09/16/17 21:02 07:00 07:00 WBC 5.3 RBC 4.30 Hgb 13.8 Hct 40.9 MCV 95.1 MCH 32.1 MCHC 33.7 RDW 13.1 Plt Count 200 MPV 9.2 Sodium Potassium Chloride Carbon Dioxide Anion Gap BUN Creatinine Creat Clearance w eGFR Random Glucose Calcium Total Bilirubin AST ALT Alkaline Phosphatase Total Protein Albumin Urine Color Rach Urine Appearance Cloudy Urine pH 5.0 Ur Specific [place] 1.025 Urine Protein Negative Urine Glucose (UA) Negative Urine Ketones Negative Urine Blood 3+ H Urine Nitrite Negative Urine Bilirubin Negative Urine Urobilinogen 4.0 e.u/dl Ur Leukocyte Esterase Negative Urine WBC (Auto) 8 Urine RBC (Auto) 126 Hyaline Casts 1 Urine Mucus Rare RPR Titer HIV 1&2 Antibody Screen Negative HIV P24 Antigen Negative 09/16/17 09/16/17 09/16/17 07:00 07:00 13:20 WBC RBC Hgb Hct MCV MCH MCHC RDW Plt Count MPV Sodium 143 Potassium 3.9 Chloride 107 Carbon Dioxide 30 Anion Gap 6 L BUN 18 Creatinine 1.0 Creat Clearance w eGFR > 60 Random Glucose 109 H Calcium 8.7 Total Bilirubin 0.3 D AST 95 H ALT 166 H D Alkaline Phosphatase 96 Total Protein 7.1 Albumin 3.3 L Urine Color Yellow Urine Appearance Slcloudy Urine pH 6.0 Ur Specific [place] 1.021 Urine Protein Negative Urine Glucose (UA) Negative Urine Ketones Negative Urine Blood Negative Urine Nitrite Negative Urine Bilirubin Negative Urine Urobilinogen 2.0 Ur Leukocyte Esterase Negative Urine WBC (Auto) Urine RBC (Auto) Hyaline Casts Urine Mucus RPR Titer Nonreactive HIV 1&2 Antibody Screen HIV P24 Antigen 09/18/17 06:00 WBC RBC Hgb Hct MCV MCH MCHC RDW Plt Count MPV Sodium Potassium Chloride Carbon Dioxide Anion Gap BUN Creatinine Creat Clearance w eGFR Random Glucose Calcium Total Bilirubin AST 83 H ALT 168 H Alkaline Phosphatase Total Protein Albumin Urine Color Urine Appearance Urine pH Ur Specific [place] Urine Protein Urine Glucose (UA) Urine Ketones Urine Blood Urine Nitrite Urine Bilirubin Urine Urobilinogen Ur Leukocyte Esterase Urine WBC (Auto) Urine RBC (Auto) Hyaline Casts Urine Mucus RPR Titer HIV 1&2 Antibody Screen HIV P24 Antigen Assessment: 09/20/17 10:18 MEDICALLY STABLE. Plan: D/C PT TODAY TO REHAB
--- NOTE | 2017-09-20 10:23 | DS ---
[facility] Detox Discharge Summary Admission Date: 09/15/17 Discharge Date: 09/20/17 - History Present History: Cocaine Dependence, Opioid Dependence, Sedative Dependence Additional Comments: DETOX COMPLETED. ALERT O X 3. PT REFERRED TO [facility] TODAY. PT REPORTS HE HAS PCP AT [facility]. Pertinent Past History: PLEASE SEE DX BELOW - Physical Exam Results Vital Signs: Vital Signs Temperature 98.6 F 09/20/17 09:48 Pulse Rate 60 09/20/17 09:48 Respiratory Rate 20 09/20/17 09:48 Blood Pressure 104/58 09/20/17 09:48 O2 Sat by Pulse Oximetry (%) Pertinent Admission Physical Exam Findings: WITHDRAWAL SX Laboratory Tests 09/15/17 09/16/17 09/16/17 21:02 07:00 07:00 WBC 5.3 RBC 4.30 Hgb 13.8 Hct 40.9 MCV 95.1 MCH 32.1 MCHC 33.7 RDW 13.1 Plt Count 200 MPV 9.2 Sodium Potassium Chloride Carbon Dioxide Anion Gap BUN Creatinine Creat Clearance w eGFR Random Glucose Calcium Total Bilirubin AST ALT Alkaline Phosphatase Total Protein Albumin Urine Color Rach Urine Appearance Cloudy Urine pH 5.0 Ur Specific [place] 1.025 Urine Protein Negative Urine Glucose (UA) Negative Urine Ketones Negative Urine Blood 3+ H Urine Nitrite Negative Urine Bilirubin Negative Urine Urobilinogen 4.0 e.u/dl Ur Leukocyte Esterase Negative Urine WBC (Auto) 8 Urine RBC (Auto) 126 Hyaline Casts 1 Urine Mucus Rare RPR Titer HIV 1&2 Antibody Screen Negative HIV P24 Antigen Negative 09/16/17 09/16/17 09/16/17 07:00 07:00 13:20 WBC RBC Hgb Hct MCV MCH MCHC RDW Plt Count MPV Sodium 143 Potassium 3.9 Chloride 107 Carbon Dioxide 30 Anion Gap 6 L BUN 18 Creatinine 1.0 Creat Clearance w eGFR > 60 Random Glucose 109 H Calcium 8.7 Total Bilirubin 0.3 D AST 95 H ALT 166 H D Alkaline Phosphatase 96 Total Protein 7.1 Albumin 3.3 L Urine Color Yellow Urine Appearance Slcloudy Urine pH 6.0 Ur Specific [place] 1.021 Urine Protein Negative Urine Glucose (UA) Negative Urine Ketones Negative Urine Blood Negative Urine Nitrite Negative Urine Bilirubin Negative Urine Urobilinogen 2.0 Ur Leukocyte Esterase Negative Urine WBC (Auto) Urine RBC (Auto) Hyaline Casts Urine Mucus RPR Titer Nonreactive HIV 1&2 Antibody Screen HIV P24 Antigen 09/18/17 06:00 WBC RBC Hgb Hct MCV MCH MCHC RDW Plt Count MPV Sodium Potassium Chloride Carbon Dioxide Anion Gap BUN Creatinine Creat Clearance w eGFR Random Glucose Calcium Total Bilirubin AST 83 H ALT 168 H Alkaline Phosphatase Total Protein Albumin Urine Color Urine Appearance Urine pH Ur Specific [place] Urine Protein Urine Glucose (UA) Urine Ketones Urine Blood Urine Nitrite Urine Bilirubin Urine Urobilinogen Ur Leukocyte Esterase Urine WBC (Auto) Urine RBC (Auto) Hyaline Casts Urine Mucus RPR Titer HIV 1&2 Antibody Screen HIV P24 Antigen - Treatment Hospital Course: Detox Protocol Followed, Detoxed Safely, Responded well, Discharged Condition Good, Rehab Referral Accepted Patient has Accepted a Rehab Referral to: [facility] - Medication Discharge Medications: Ambulatory Orders NK [No Known Home Medication] 12/25/16 - Diagnosis (1) Insomnia Current Visit: Yes Status: Acute Qualifiers: Insomnia type: unspecified Qualified Code(s): G47.00 - Insomnia, unspecified (2) Opioid dependence with withdrawal Current Visit: Yes Status: Acute (3) Sedative, hypnotic or anxiolytic dependence with withdrawal, uncomplicated Current Visit: Yes Status: Acute (4) Cocaine dependence Current Visit: Yes Status: Acute Qualifiers: Substance use status: uncomplicated Qualified Code(s): F14.20 - Cocaine dependence, uncomplicated (5) Hepatitis C Current Visit: Yes Status: Chronic Qualifiers: Viral hepatitis chronicity: chronic Hepatic coma status: without hepatic coma Qualified Code(s): B18.2 - Chronic viral hepatitis C (6) Nicotine dependence Current Visit: Yes Status: Acute Qualifiers: Nicotine product type: cigarettes Substance use status: in withdrawal Qualified Code(s): F17.213 - Nicotine dependence, cigarettes, with withdrawal (7) Weight loss Current Visit: Yes Status: Acute (8) Substance induced mood disorder Current Visit: Yes Status: Suspected
[2017-09-20] MEDS: NAPROXEN 250 MG TABLET (FP) PO SCH (11:16)
[2017-09-20] MEDS: BACITRACIN 0.9 GM PACKET TP SCH (11:16)
[2017-09-20] MEDS: NICOTINE 21 MG/24 HOURS TOPICAL PATCH TD SCH (11:17)
[2017-09-20] MEDS: PRENATAL VITAMINS W/ FOLIC ACID TABLET (FP) PO SCH (11:18)
== END 2017-09-20 10:00 | disposition home or self-care (01) | DRG 773 ==
LOC: YASAS 13:21 → Y3N 18:18
PROVIDERS: ADMIT Internal Medicine; ATTEND Internal Medicine
PROC: HZ2ZZZZ Detoxification Services for Substance Abuse Treatment (ICD-10-PCS; principal; 2017-09-15)
DX: F11.23 Opioid dependence with withdrawal (principal); F13.230 Sedative, hypnotic or anxiolytic dependence with withdrawal, uncomplicated; F14.20 Cocaine dependence, uncomplicated; F17.210 Nicotine dependence, cigarettes, uncomplicated; F19.24 Other psychoactive substance dependence with psychoactive substance-induced mood disorder; B18.2 Chronic viral hepatitis C; G47.00 Insomnia, unspecified; R63.4 Abnormal weight loss; Z68.23 Body mass index [BMI] 23.0-23.9, adult; Z85.828 Personal history of other malignant neoplasm of skin
CPT/HCPCS: 36415; 80053; 81003; 81015; 84450; 84460; 85027; 86593; 87389; 93005; 93010

== ENCOUNTER 2018-12-04 14:14 | Inpatient (IN) | payer OTHER ==
[2018-12-04 16:07] VITALS: BMI 22.5
--- NOTE | 2018-12-04 17:53 | HP ---
"COWS - Scale Resting Pulse: 0= PA 80 or Below Sweatin=Flushed/Facial Moisture Restless Observation: 1= Difficult to Sit Still Pupil Size: 0= Normal to Room Light Bone or Joint Aches: 1= Mild Discomfort Runny Nose/ Eye Tearin= Nasal Congestion GI Upset > 30mins: 2= Nausea/Diarrhea Tremor Observation: 2= Slight Tremor Visible Yawning Observation: 0= None Anxiety or Irritability: 1=Feels Anxious/Irritable Goose Flesh Skin: 0=Smooth Skin COWS Score: 10 CIWA Score Nausea/Vomitin-Mild Nausea/No Vomiting Muscle Tremors: 3 Anxiety: 1-Mildly Anxious Agitation: 4-Moderately Restless Paroxysmal Sweats: 3 (Increased facial moisture) Orientation: 0-Oriented Tacttile Disturbances: 0-None Auditory Disturbances: 0-None Visual Disturbances: 0-None Headache: 0-None Present CIWA-Ar Total Score: 12 - Admission Criteria OAS Guidelines: Admission for Medically Managed Detox: Requires at least one of the followin. CIWA greater than 12 2. Seizures within the past 24 hours 3. Delirium tremens within the past 24 hours 4. Hallucinations within the past 24 hours 5. Acute intervention needed for co occurring medical disorder 6. Acute intervention needed for co occurring psychiatric disorder 7. Severe withdrawal that cannot be handled at a lower level of care (continued vomiting, continued diarrhea, abnormal vital signs) requiring intravenous medication and/or fluids 8. Patient presents the following: CIWA greater than 12 Admission Criteria Met: Admission criteria met Admission ROS [facility] Chief Complaint: Heroin and Xanax withdrawal. Allergies/Adverse Reactions: Allergies Allergy/AdvReac Type Severity Reaction Status Date / Time No Known Allergies Allergy Verified 12/15/17 11:18 History of Present Illness: 48 yo presents w/ opioid and xanax withdrawal requesting detox. Heroin use began at age 17. Current use 5-6 bags daily.- Nasally. [facility] has a Narcan Kit at home. Benzo (Xanax) use began at age 34. Current use is 4-6 mg PO daily. Illicit Methadone use began at age once per week. [facility] bottles are approx 80 mg. Cocaine use began at age 18. Alcohol use since age 17. [facility] drinks 6 - 12 oz beers 3-4x/wk. Last drink yesterday. Nicotine use began at age 16. 1/2 PPD Hx: 3 overdoses w/ heroin and benzo. Last 2 months ago. Last PPD: 12/27/16 (has been incarcerated since this last PPD) Denies seizures. PMHx: Completed Tx for Hep C; Skin cancer (L) shoulder removed 2008. Denies significant PMH MHHx: Denies depression or anxiety. Denies thoughts of harming self or others. Search Terms: Karan Jin, 1970 Search Date: 12/04/2018 05:51:07 PM The Drug Utilization Report below displays all of the controlled substance prescriptions, if any, that your patient has filled in the last twelve months. The information displayed on this report is compiled from pharmacy submissions to the Department, and accurately reflects the information as submitted by the pharmacies. This report was requested by: Lisa Batista | Reference #: [id number] There are no results for the search terms that you entered. Search Terms: Karan Jin, 1970 Search Date: 12/04/2018 05:51:38 PM States Searched: [place], [place], [place], [place], [place], [place], [place] The Drug Utilization Report below displays the controlled substance prescriptions, if any, that were dispensed in the indicated state(s). The information displayed on this report is compiled from requests submitted to other states' PMPs, and accurately reflects the information as returned by them. Blank diaz indicate data not provided by other state. This report was requested by: Lisa Batista | Reference #: [id number] Exam Limitations: No Limitations - Ebola screening Have you traveled outside of the country in the last 21 days: No (N) Have you had contact with anyone from an Ebola affected area: No Have you been sick,other than usual withdrawal symptoms: No (Denies recent exposure to measles ) Do you have a fever: No - Review of Systems Constitutional: Chills, Diaphoresis, Unintentional Wgt. Loss (r/t poor eating habits aand drug use.) EENT: reports: No Symptoms Reported Respiratory: reports: No Symptoms reported Cardiac: reports: No Symptoms Reported GI: reports: No Symptoms Reported : reports: No Symptoms Reported Musculoskeletal: reports: No Symptoms Reported Integumentary: reports: No Symptoms Reported Neuro: reports: No Symptoms reported Endocrine: reports: Increased Thirst Psychiatric: reports: Judgement Intact, Orientated x3, Agitated, Anxious Patient History - Patient Medical History Hx Anemia: No Hx Asthma: No Hx Chronic Obstructive Pulmonary Disease (COPD): No Hx Cancer: No Hx Cardiac Disorders: No Hx Congestive Heart Failure: No Hx Hypertension: No Hx Hypercholesterolemia: No Hx Pacemaker: No HX Cerebrovascular Accident: No Hx Seizures: No Hx Dementia: No Hx Diabetes: No Hx Gastrointestinal Disorders: No Hx Liver Disease: Yes Hx Genitourinary Disorders: No Hx Sexually Transmitted Disorders: No Hx Renal Disease (ESRD): No Hx Thyroid Disease: No Hx Human Immunodeficiency Virus (HIV): No Hx Hepatitis C: Yes (needs treatment) Hx Depression: Yes Hx Suicide Attempt: No Hx Bipolar Disorder: No Hx Schizophrenia: No - Patient Surgical History Past Surgical History: Yes Hx Neurologic Surgery: No Hx Cataract Extraction: No Hx Cardiac Surgery: No Hx Lung Surgery: No Hx Breast Surgery: No Hx Breast Biopsy: No Hx Abdominal Surgery: No Hx Appendectomy: No Hx Cholecystectomy: No Hx Genitourinary Surgery: No Hx Section: No Hx Orthopedic Surgery: No Other Surgical History: left shoulder skin ca 2009 Anesthesia Reaction: No - PPD History Previous Implant?: Yes Documented Results: Negative w/proof Implanted On Prior [facility] Admission?: Yes Date: 12/27/16 Results: NEGATIVE PPD to be Administered?: Yes - Smoking Cessation Smoking history: Current every day smoker Have you smoked in the past 12 months: Yes Aproximately how many cigarettes per day: 10 Cigars Per Day: 0 Hx Chewing Tobacco Use: No Initiated information on smoking cessation: Yes 'Breaking Loose' booklet given: 12/04/18 - Substance & Tx. History Hx Alcohol Use: No Hx Substance Use: Yes Substance Use Type: Cocaine, Heroin, Opiates, Tranquilizers (Xanax) Hx Substance Use Treatment: Yes (detox, rehab, outpaitent, Not on MMTP) - Substances abused Alprazolam (Xanax) Substance route: Oral Frequency: Daily Amount used: (2) 3mg/day Age of first use: 34 Date of last use: 12/04/18 Heroin Substance route: Inhalation Frequency: Daily Amount used: $30 Age of first use: 17 Date of last use: 12/04/18 Family Disease History - Family Disease History Family Disease History: CA: Father (colon ), Mother (colon ), Other: Father, Mother Admission Physical Exam [facility] - Vital Signs Vital Signs: Vital Signs - 24 hr 12/04/18 16:00 Temperature 96.4 F L Pulse Rate 77 Respiratory 18 Rate Blood Pressure 135/70 - Physical General Appearance: Yes: Mild Distress, Tremorous, Sweating (Increased facial moisture), Anxious HEENTM: Yes: EOMI, Hearing grossly Normal, Normocephalic, Normal Voice, SWAPNA ( Pupils = 2 mm), Pharynx Normal, Nasal Congestion Respiratory: Yes: Lungs Clear, Normal Breath Sounds, No Respiratory Distress Neck: Yes: No masses,lesions,Nodules, Supple Breast: Yes: Breast Exam Deferred Cardiology: Yes: Regular Rhythm, Regular Rate (HR: 66), S1, S2 Abdominal: Yes: Non Tender, Flat, Soft, Increased Bowel Sounds Genitourinary: Yes: Within Normal Limits Back: Yes: Normal Inspection Musculoskeletal: Yes: full range of Motion, Gait Steady Extremities: Yes: Normal Capillary Refill, Tremors (Mild tremors of hands when arms extended) 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, Fully Oriented, Alert, Motor Strength 5/5, Normal Response Integumentary: Yes: Normal Color, Warm Lymphatic: Yes: Within Normal Limits - Diagnostic (1) Cocaine dependence Current Visit: Yes Status: Chronic Qualifiers: Substance use status: uncomplicated Qualified Code(s): F14.20 - Cocaine dependence, uncomplicated (2) Nicotine dependence Current Visit: Yes Status: Chronic Qualifiers: Nicotine product type: cigarettes Substance use status: in withdrawal Qualified Code(s): F17.213 - Nicotine dependence, cigarettes, with withdrawal (3) Opioid dependence with withdrawal Current Visit: Yes Status: Acute (4) Sedative, hypnotic or anxiolytic dependence with withdrawal, uncomplicated Current Visit: Yes Status: Acute Cleared for Admission [facility] - Detox or Rehab [facility] Level of Care: Medically Managed Detox Regimen/Protocol: Methadone/Valium Claeared for Rehab Admission: No Breathalyzer - Breathalyzer Breathalyzer: 0 Urine Drug Screen - Test Device Lot number: [id number] Expiration date: 09/26/20 - Control Is test valid?: Yes - Results Drug screen NEGATIVE: No Urine drug screen results: GUERLINE-Cocaine, FEN-Fentanyl, MOP-Opiates, OXY-Oxycodone , MTD-Methadone, BZO-Benzodiazepines Inpatient Rehab Admission - Rehab Decision to Admit Inpatient rehab admission?: No"
[2018-12-04] MEDS ORDERED: MENTHOL/PHENOL 1 EACH UD MM PRN (18:29)
[2018-12-04] MEDS ORDERED: MAG HYDROX/AL HYDROX/SIMETH 30 ML UNIT-DOSE CUP PO PRN (18:29)
[2018-12-04] MEDS ORDERED: diazePAM 5 MG TABLET PO PRN (18:29)
[2018-12-04] MEDS ORDERED: MAGNESIUM HYDROX 2400MG/30ML ORAL SUSPENSION 30 ML CUP PO PRN (18:29)
[2018-12-04] MEDS ORDERED: ACETAMINOPHEN 325 MG TABLET (FP) PO PRN ×2 (18:29)
[2018-12-04] MEDS ORDERED: BISMUTH SUBSALICYLATE 524 MG/30 ML UD PO PRN (18:29)
[2018-12-04] MEDS ORDERED: MELATONIN 5 MG TABLETS PO PRN (18:29)
[2018-12-04] MEDS ORDERED: cloNIDine HCL 0.1 MG TABLET PO PRN (18:29)
[2018-12-04] MEDS ORDERED: PROCHLORPERAZINE MALEATE 5 MG TABLET PO PRN (18:29)
[2018-12-04] MEDS ORDERED: METHOCARBAMOL 500 MG TABLET PO PRN (18:29)
[2018-12-04] MEDS ORDERED: IBUPROFEN 400 MG TABLET (FP) PO PRN (18:29)
[2018-12-04] MEDS ORDERED: NALOXONE HCL 0.4 MG/ML VIAL IVPUSH PRN (18:29)
[2018-12-04] MEDS ORDERED: MAGNESIUM CITRATE 300 ML BOTTLE PO PRN (18:29)
[2018-12-04] MEDS ORDERED: diazePAM 5 MG TABLET PO ONE (19:00)
[2018-12-04] MEDS: THIAMINE HCL 100 MG TABLET (FP) PO SCH (21:47)
[2018-12-04] MEDS: diazePAM 5 MG TABLET PO SCH (21:47)
[2018-12-04] MEDS ORDERED: METHADONE HCL 10 MG TABLET (FOR DETOX USE ONLY) PO ONE (22:00)
[2018-12-05] MEDS: diazePAM 5 MG TABLET PO SCH ×3 (05:09→23:18)
[2018-12-05] MEDS ORDERED: METHADONE HCL 5 MG TABLET (FOR DETOX USE ONLY) ONE (09:28)
[2018-12-05] MEDS ORDERED: METHADONE HCL 10 MG TABLET (FOR DETOX USE ONLY) ONE (09:29)
[2018-12-05] MEDS ORDERED: METHADONE (DETOX) 20 MG, METHADONE (DETOX) 5 MG PO ONE (10:00)
--- NOTE | 2018-12-05 10:05 | PN ---
S CIWA - CIWA Score Nausea/Vomitin Muscle Tremors: 2 Anxiety: 2 Agitation: 2 Paroxysmal Sweats: 1-Minimal Palms Moist Orientation: 0-Oriented Tacttile Disturbances: 1-Very Mild Itch/Numbness Auditory Disturbances: 1-Very Mild Visual Disturbances: 0-None Headache: 2-Mild CIWA-Ar Total Score: 13 BHS COWS - Scale Resting Pulse: 0= [place] 80 or Below Sweatin= Chills/Flushing Restless Observation: 1= Difficult to Sit Still Pupil Size: 1= Pupils >than Normal Bone or Joint Aches: 1= Mild Discomfort Runny Nose/ Eye Tearin= Runny Nose/Eyes GI Upset > 30mins: 2= Nausea/Diarrhea Tremor Observation of Outstretched Hands: 2= Slight Tremor Visible Yawning Observation: 1= 1-2x During Session Anxiety or Irritability: 2=Irritable/Anxious Goose Flesh Skin: 0=Smooth Skin COWS Score: 13 S Progress Note (SOAP) Subjective: alert,irritable,anxious,interrupted sleep,tremor,pain in the body and back Objective: 12/05/18 10:07 Vital Signs Temperature 97.5 F L 12/05/18 06:00 Pulse Rate 62 12/05/18 06:00 Respiratory Rate 18 12/05/18 06:00 Blood Pressure 115/78 12/05/18 06:00 O2 Sat by Pulse Oximetry (%) 12/05/18 10:07 labs pending Assessment: 12/05/18 10:07 withdrawal symptom Plan: continue detox
[2018-12-05] MEDS: NICOTINE 14 MG/24 HOURS TOPICAL PATCH TD SCH (10:58)
[2018-12-05] MEDS: PRENATAL VITAMINS W/ FOLIC ACID TABLET (FP) PO SCH (10:58)
[2018-12-05 12:15] LABS: HEMATOCRIT 37.3 % (35.4-49); HEMOGLOBIN 12.6 GM/dL (11.7-16.9); MCH 31.3 pg (25.7-33.7); MCHC 33.8 g/dl (32.0-35.9); MEAN CELL VOLUME 92.4 fl (80-96); MEAN PLT VOLUME 9.3 fl (7.5-11.1); PLATELET COUNT 174 K/MM3 (134-434); RBC 4.04 M/mm3 (4.00-5.60); RDW 13.7 % (11.9-15.9); WHITE BLOOD COUNT 8.3 K/mm3 (4.0-10.0)
[2018-12-05 12:18] LABS: URINE APPEARANCE CLEAR; URINE BILIRUBIN NEGATIVE (NEGATIVE); URINE COLOR YELLOW; URINE GLUCOSE (UA) NEGATIVE (NEGATIVE); URINE KETONE NEGATIVE (NEGATIVE); URINE LEUK ESTERASE NEGATIVE (NEGATIVE); URINE NITRITE NEGATIVE (NEGATIVE); URINE PROTEIN NEGATIVE (NEGATIVE); URINE UROBILINOGEN 0.2 mg/dL (0.2-1.0)
[2018-12-05 12:47] LABS: ALBUMIN 3.4 g/dl (3.4-5.0); BILIRUBIN,TOTAL 0.2 mg/dL (0.2-1); BLOOD UREA NITROGEN 14.6 mg/dL (7-18); CALCIUM 8.7 mg/dL (8.5-10.1); CREATININE 0.8 mg/dL (0.55-1.3); POTASSIUM 4.3 mmol/L (3.5-5.1); TOT PROT 6.3 g/dl (6.4-8.2)
--- NOTE | 2018-12-05 14:35 | EKG ---
Test Reason : Blood Pressure : / mmHG Vent. Rate : 060 BPM Atrial Rate : 060 BPM P-R Int : 122 ms QRS Dur : 094 ms QT Int : 444 ms P-R-T Axes : 004 084 065 degrees QTc Int : 444 ms NORMAL SINUS RHYTHM NORMAL ECG WHEN COMPARED WITH ECG OF 15-DEC-2017 13:51, NO SIGNIFICANT CHANGE WAS FOUND Confirmed by Conor Cash ([id number]) on 12/05/2018 2:34:38 PM Referred By: Confirmed By:Conor Cash
[2018-12-05] MEDS: THIAMINE HCL 100 MG TABLET (FP) PO SCH (23:18)
[2018-12-06] MEDS ORDERED: diazePAM 5 MG TABLET PO SCH (06:00)
[2018-12-06] MEDS ORDERED: METHADONE HCL 10 MG TABLET (FOR DETOX USE ONLY) PO ONE (10:00)
[2018-12-06] MEDS: PRENATAL VITAMINS W/ FOLIC ACID TABLET (FP) PO SCH (11:11)
[2018-12-06] MEDS: NICOTINE 14 MG/24 HOURS TOPICAL PATCH TD SCH (11:12)
--- NOTE | 2018-12-06 12:53 | PN ---
S CIWA - CIWA Score Nausea/Vomitin-No Nausea/No Vomiting Muscle Tremors: None Anxiety: 1-Mildly Anxious Agitation: 1-Slight > Activity Paroxysmal Sweats: 1-Minimal Palms Moist Orientation: 0-Oriented Tacttile Disturbances: 0-None Auditory Disturbances: 0-None Visual Disturbances: 0-None Headache: 0-None Present CIWA-Ar Total Score: 3 BHS Progress Note (SOAP) Subjective: 48 yo presents w/ opioid and xanax withdrawal requesting detox< pt states he is doing well on detox protocols O: Vital Signs - 24 hr 12/05/18 12/05/18 12/06/18 13:31 21:13 00:30 Temperature 97.8 F 98.1 F Pulse Rate 66 58 L Respiratory 18 18 18 Rate Blood Pressure 117/80 138/73 12/06/18 12/06/18 12/06/18 03:30 06:14 09:21 Temperature 98.1 F 97.3 F L Pulse Rate 60 59 L Respiratory 18 16 18 Rate Blood Pressure 129/63 123/59 L Laboratory Tests 12/05/18 12/05/18 12/05/18 06:00 06:00 06:00 WBC 8.3 RBC 4.04 Hgb 12.6 Hct 37.3 MCV 92.4 MCH 31.3 MCHC 33.8 RDW 13.7 Plt Count 174 MPV 9.3 Sodium 140 Potassium 4.3 Chloride 106 Carbon Dioxide 28 Anion Gap 6 L BUN 14.6 Creatinine 0.8 Est GFR (CKD-EPI)AfAm 121.57 Est GFR (CKD-EPI)NonAf 104.89 Random Glucose 86 Calcium 8.7 Total Bilirubin 0.2 AST 13 L ALT 20 Alkaline Phosphatase 100 Total Protein 6.3 L Albumin 3.4 Urine Color Urine Appearance Urine pH Ur Specific [place] Urine Protein Urine Glucose (UA) Urine Ketones Urine Blood Urine Nitrite Urine Bilirubin Urine Urobilinogen Ur Leukocyte Esterase RPR Titer Nonreactive 12/05/18 07:15 WBC RBC Hgb Hct MCV MCH MCHC RDW Plt Count MPV Sodium Potassium Chloride Carbon Dioxide Anion Gap BUN Creatinine Est GFR (CKD-EPI)AfAm Est GFR (CKD-EPI)NonAf Random Glucose Calcium Total Bilirubin AST ALT Alkaline Phosphatase Total Protein Albumin Urine Color Yellow Urine Appearance Clear Urine pH 7.0 D Ur Specific [place] 1.024 Urine Protein Negative Urine Glucose (UA) Negative Urine Ketones Negative Urine Blood Negative Urine Nitrite Negative Urine Bilirubin Negative Urine Urobilinogen 0.2 Ur Leukocyte Esterase Negative RPR Titer a/p: continue detox protocols, pt doing well. quant test pending labs WNL
[2018-12-06 13:11] VITALS: BP 134/66; PULSE 56; TEMP 98.1
--- NOTE | 2018-12-06 15:17 | DS ---
[facility] Detox Discharge Summary Admission Date: 12/04/18 Discharge Date: 12/06/18 - History Present History: Opioid Dependence, Sedative Dependence Pertinent Past History: pt here for xanax and alcohol withdrawal- pt states he would like to go to [facility] and was accepted by them to go there today. d/w pt that he would feel better if he completed detox- pt states that he will try to do so at [facility]. Pt refused to stay here to complete detox - Physical Exam Results Vital Signs: Vital Signs Temperature 98.1 F 12/06/18 13:09 Pulse Rate 56 L 12/06/18 13:09 Respiratory Rate 18 12/06/18 13:09 Blood Pressure 134/66 12/06/18 13:09 O2 Sat by Pulse Oximetry (%) - Medication Discharge Medications: Ambulatory Orders NK [No Known Home Medication] 12/25/16 - AMA Did Patient Leave Against Medical Advice: Yes
[2018-12-07] MEDS ORDERED: diazePAM 5 MG TABLET PO ONE (06:00)
[2018-12-07] MEDS ORDERED: METHADONE (DETOX) 10 MG, METHADONE (DETOX) 5 MG PO ONE (10:00)
[2018-12-08] MEDS ORDERED: METHADONE HCL 10 MG TABLET (FOR DETOX USE ONLY) PO ONE (10:00)
[2018-12-09] MEDS ORDERED: METHADONE HCL 5 MG TABLET (FOR DETOX USE ONLY) PO ONE (06:00)
== END 2018-12-06 15:15 | disposition left against medical advice (07) | DRG 770 ==
LOC: YASAS 14:14 → Y6N 18:44
PROVIDERS: ADMIT Surgery; ATTEND Surgery
PROC: HZ2ZZZZ Detoxification Services for Substance Abuse Treatment (ICD-10-PCS; principal; 2018-12-04)
DX: F11.23 Opioid dependence with withdrawal (principal); F13.230 Sedative, hypnotic or anxiolytic dependence with withdrawal, uncomplicated; F14.20 Cocaine dependence, uncomplicated; F17.210 Nicotine dependence, cigarettes, uncomplicated; F32.9 Major depressive disorder, single episode, unspecified; B18.2 Chronic viral hepatitis C; Z85.828 Personal history of other malignant neoplasm of skin
CPT/HCPCS: 36415; 80053; 81003; 85027; 86480; 86593; 93005; 93010

== ENCOUNTER 2019-01-29 10:52 | Inpatient (IN) | payer OTHER ==
[2019-01-29 11:04] VITALS: BMI 22.8
--- NOTE | 2019-01-29 11:55 | HP ---
COWS - Scale Resting Pulse: 0= [place] 80 or Below Sweatin=Flushed/Facial Moisture Restless Observation: 1= Difficult to Sit Still Pupil Size: 2= Moderately Dilated Bone or Joint Aches: 1= Mild Discomfort Runny Nose/ Eye Tearin= Nasal Congestion GI Upset > 30mins: 2= Nausea/Diarrhea Tremor Observation: 2= Slight Tremor Visible Yawning Observation: 2= >3x During Session Anxiety or Irritability: 2=Irritable/Anxious Goose Flesh Skin: 0=Smooth Skin COWS Score: 15 CIWA Score - Admission Criteria OASAS Guidelines: Admission for Medically Managed Detox: Requires at least one of the followin. CIWA greater than 12 2. Seizures within the past 24 hours 3. Delirium tremens within the past 24 hours 4. Hallucinations within the past 24 hours 5. Acute intervention needed for co occurring medical disorder 6. Acute intervention needed for co occurring psychiatric disorder 7. Severe withdrawal that cannot be handled at a lower level of care (continued vomiting, continued diarrhea, abnormal vital signs) requiring intravenous medication and/or fluids 8. Admission ROS [facility] Chief Complaint: "I am here due to the heroin addiction, drinking, pills. I just need to stay put." Allergies/Adverse Reactions: Allergies Allergy/AdvReac Type Severity Reaction Status Date / Time No Known Allergies Allergy Verified 01/29/19 10:59 History of Present Illness: Patient is a 48 year old male with history of opioid dependence, alcohol use disorder, cocaine use disorder. Patient reports 5-6 bags of her per day intravenously and intranasally, needles from exchange , denies sharing , or re-using , denies abscess, + OD most recently 1 year ago. He started using at the age of [age] years old. Longest period of sobreity 1 yr and 2 mo w/ mandatory program ( 2008). He has a Narcan kit at home. He used 2 bags of heroin this morning. Illicit Methadone : 100 mg , latest use of suboxone 4 or 5 days ago. Cocaine use began at age 18, currently $20 per day intranasally or intravenously. benzo : latest use today Klonopin 3 mg, every other day usually. He denies seizures. Alcohol use since age 17. States drinks 6 - 12 oz beers 3-4x/wk. Nicotine use began at age 16. 1 PPD PMHx: Completed Tx for Hep C 2018 ; Skin cancer (L) shoulder removed 2008. Psych : Denies SI / HI , but reports anxiety disorder and panic attacks. meds : denies - Ebola screening Have you traveled outside of the country in the last 21 days: No (N) Have you had contact with anyone from an Ebola affected area: No Do you have a fever: No Patient History - Patient Medical History Hx Anemia: No Hx Asthma: No Hx Chronic Obstructive Pulmonary Disease (COPD): No Hx Cancer: No Hx Cardiac Disorders: No Hx Congestive Heart Failure: No Hx Hypertension: No Hx Hypercholesterolemia: No Hx Pacemaker: No HX Cerebrovascular Accident: No Hx Seizures: No Hx Dementia: No Hx Diabetes: No Hx Gastrointestinal Disorders: No Hx Liver Disease: Yes Hx Genitourinary Disorders: No Hx Sexually Transmitted Disorders: No Hx Renal Disease (ESRD): No Hx Thyroid Disease: No Hx Human Immunodeficiency Virus (HIV): No Hx Hepatitis C: Yes (treated in 2018 but didn't complete) Hx Depression: Yes Hx Suicide Attempt: No Hx Bipolar Disorder: No Hx Schizophrenia: No - Patient Surgical History Past Surgical History: Yes Hx Neurologic Surgery: No Hx Cataract Extraction: No Hx Cardiac Surgery: No Hx Lung Surgery: No Hx Breast Surgery: No Hx Breast Biopsy: No Hx Abdominal Surgery: No Hx Appendectomy: No Hx Cholecystectomy: No Hx Genitourinary Surgery: No Hx Section: No Hx Orthopedic Surgery: No Other Surgical History: left shoulder skin ca 2009 Anesthesia Reaction: No - PPD History Previous Implant?: Yes Documented Results: Negative w/proof Implanted On Prior [facility] Admission?: Yes Date: 12/27/16 Results: NEGATIVE PPD to be Administered?: No - Reproductive History Patient is a Female of Child Bearing Age (11 -55 yrs old): No - Smoking Cessation Smoking history: Current every day smoker Have you smoked in the past 12 months: Yes Aproximately how many cigarettes per day: 10 Cigars Per Day: 0 Hx Chewing Tobacco Use: No Initiated information on smoking cessation: Yes 'Breaking Loose' booklet given: 01/29/19 - Substances abused Alprazolam (Xanax) Substance route: Oral Frequency: Daily Amount used: (2) 3mg/day Age of first use: 34 Date of last use: 12/04/18 Heroin Substance route: Inhalation Frequency: Daily Amount used: 4 BAGS Age of first use: 17 Date of last use: 01/29/19 Benzodiazepine (Klonopin) Substance route: Oral Frequency: 3-6 times per week Amount used: 2 PILLS Age of first use: 17 Date of last use: 01/29/19 Family Disease History - Family Disease History Family Disease History: CA: Father (colon ), Mother (colon ), Other: Father, Mother Admission Physical Exam BHS - Vital Signs Vital Signs: Vital Signs - 24 hr 01/29/19 01/29/19 01/29/19 10:57 11:04 11:38 Temperature 97.7 F 97.7 F 97.7 F Pulse Rate 48 L 48 L 48 L Respiratory 16 16 16 Rate Blood Pressure 112/61 112/61 112/61 - Physical General Appearance: Yes: Mild Distress HEENTM: Yes: EOMI, Hearing grossly Normal, Normocephalic, SWAPNA, Pharynx Normal, Tm's normal Respiratory: Yes: Chest Non-Tender, Lungs Clear, Normal Breath Sounds, No Accessory Muscle Use Neck: Yes: No masses,lesions,Nodules, Supple, Trachea in good position Cardiology: Yes: Regular Rhythm, S1, S2, Bradycardia Abdominal: Yes: Normal Bowel Sounds, Non Tender, Flat Genitourinary: Yes: Within Normal Limits (left possible testicular hydrocoele) Back: Yes: Normal Inspection Musculoskeletal: Yes: full range of Motion, Gait Steady, Pelvis Stable Extremities: Yes: Normal Capillary Refill, Normal Inspection, Normal Range of Motion, Non-Tender 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, Fully Oriented, Alert, Motor Strength 5/5, Normal Mood/Affect Integumentary: Yes: Normal Color, Warm Lymphatic: Yes: Within Normal Limits - Diagnostic (1) Opioid dependence with withdrawal Current Visit: Yes Status: Acute (2) Weight loss Current Visit: Yes Status: Acute (3) Cocaine dependence Current Visit: Yes Status: Chronic Qualifiers: Substance use status: uncomplicated Qualified Code(s): F14.20 - Cocaine dependence, uncomplicated (4) Nicotine dependence Current Visit: Yes Status: Chronic Qualifiers: Nicotine product type: cigarettes Substance use status: in withdrawal Qualified Code(s): F17.213 - Nicotine dependence, cigarettes, with withdrawal (5) Hepatitis C Current Visit: Yes Status: Resolved Qualifiers: Viral hepatitis chronicity: chronic Hepatic coma status: without hepatic coma Qualified Code(s): B18.2 - Chronic viral hepatitis C Cleared for Admission [facility] - Detox or Rehab [facility] Level of Care: Medically Managed Screened but not Admitted - Documentation of Visit Screened but not Admitted: No Breathalyzer - Breathalyzer Breathalyzer: 0 Vital Signs - Vital Signs Vital signs refused: No Temperature: 97.7 F Temperature source: Oral Pulse Rate: 48 Respiratory Rate: 16 Blood Pressure: 112/61 BP Location: Left Arm Blood Pressure position: Sitting - Height Height: 5 ft 9 in - Weight Weight: 155 lb Weight measurement method: Standing scale - BMI Body Mass Index (BMI): 22.8 - Bowel Function Bowel Movement: Yes Urine Drug Screen - Test Device Lot number: [id number] Expiration date: 10/27/20 - Control Is test valid?: Yes - Results Drug screen NEGATIVE: No Urine drug screen results: GUERLINE-Cocaine, MOP-Opiates, OXY-Oxycodone, MTD- Methadone, BUP-Suboxone Inpatient Rehab Admission - Rehab Decision to Admit Inpatient rehab admission?: No
[2019-01-29] MEDS ORDERED: MENTHOL/PHENOL 1 EACH UD MM PRN (12:04)
[2019-01-29] MEDS ORDERED: MAGNESIUM CITRATE 300 ML BOTTLE PO PRN (12:04)
[2019-01-29] MEDS ORDERED: METHOCARBAMOL 500 MG TABLET PO PRN (12:04)
[2019-01-29] MEDS ORDERED: IBUPROFEN 400 MG TABLET (FP) PO PRN (12:04)
[2019-01-29] MEDS ORDERED: BISMUTH SUBSALICYLATE 262 MG/15 ML BTL PO PRN (12:04)
[2019-01-29] MEDS ORDERED: MAGNESIUM HYDROX 2400MG/30ML ORAL SUSPENSION 30 ML CUP PO PRN (12:04)
[2019-01-29] MEDS ORDERED: MAG HYDROX/AL HYDROX/SIMETH 30 ML UNIT-DOSE CUP PO PRN (12:04)
[2019-01-29] MEDS ORDERED: MELATONIN 5 MG TABLETS PO PRN (12:04)
[2019-01-29] MEDS ORDERED: cloNIDine HCL 0.1 MG TABLET PO PRN (12:04)
[2019-01-29] MEDS ORDERED: ACETAMINOPHEN 325 MG TABLET (FP) PO PRN ×2 (12:04)
[2019-01-29] MEDS ORDERED: METHADONE HCL 10 MG TABLET (FOR DETOX USE ONLY) PO ONE (12:15)
[2019-01-29] MEDS: NICOTINE 7 MG/24 HOURS TOPICAL PATCH TD SCH (12:28)
[2019-01-29] MEDS: hydrOXYzine PAMOATE 25 MG CAPSULE (FP) PO PRN (22:02)
[2019-01-29] MEDS: THIAMINE HCL 100 MG TABLET (FP) PO SCH (22:02)
[2019-01-30] MEDS ORDERED: METHADONE HCL 10 MG TABLET (FOR DETOX USE ONLY) ONE (08:58)
[2019-01-30] MEDS ORDERED: METHADONE HCL 5 MG TABLET (FOR DETOX USE ONLY) ONE (08:58)
--- NOTE | 2019-01-30 09:11 | PN ---
[facility] COWS - Scale Resting Pulse: 0= [place] 80 or Below Sweatin= Chills/Flushing Restless Observation: 0= Sits Still Pupil Size: 1= Pupils >than Normal Bone or Joint Aches: 1= Mild Discomfort Runny Nose/ Eye Tearin= Nasal Congestion GI Upset > 30mins: 2= Nausea/Diarrhea (no diarrhea) Tremor Observation of Outstretched Hands: 2= Slight Tremor Visible Yawning Observation: 1= 1-2x During Session Anxiety or Irritability: 1=Feels Anxious/Irritable Goose Flesh Skin: 3=Piloerection COWS Score: 13 [facility] Progress Note (SOAP) Subjective: 48 years old male multiple patient [facility] admission since 2016 last patient [facility] admission on 11/2018 was admitted on 01/29/19 for acute opiate withdrawal sx managment doing well with methadone detox regimen no diarrhea today resting on bed mild body aches long history of hepatitis c limited response to hepatitis c treatment options Objective: 01/30/19 09:14 acute opiate withdrawal sx Vital Signs Temperature 97.9 F 01/30/19 09:10 Pulse Rate 62 01/30/19 09:10 Respiratory Rate 18 01/30/19 09:10 Blood Pressure 106/53 L 01/30/19 09:10 O2 Sat by Pulse Oximetry (%) 01/30/19 09:15 lab pending Assessment: 01/30/19 09:15 acute opiate withdrawal sx patient is alert tired eye open for verbal command speech clearly Plan: continue methadone detox
[2019-01-30 09:54] LABS: HEMATOCRIT 40.3 % (35.4-49); HEMOGLOBIN 13.3 GM/dL (11.7-16.9); MCH 30.6 pg (25.7-33.7); MEAN CELL VOLUME 92.7 fl (80-96); MEAN PLT VOLUME 9.4 fl (7.5-11.1); PLATELET COUNT 208 K/MM3 (134-434); RBC 4.34 M/mm3 (4.00-5.60); RDW 13.5 % (11.9-15.9); WHITE BLOOD COUNT 7.8 K/mm3 (4.0-10.0)
[2019-01-30] MEDS ORDERED: METHADONE (DETOX) 20 MG, METHADONE (DETOX) 5 MG PO ONE (10:00)
[2019-01-30 10:08] LABS: ALBUMIN 3.4 g/dl (3.4-5.0); BILIRUBIN,TOTAL 0.1 mg/dL (0.2-1); BLOOD UREA NITROGEN 15.1 mg/dL (7-18); CALCIUM 9.2 mg/dL (8.5-10.1); CREATININE 0.9 mg/dL (0.55-1.3); POTASSIUM 4.4 mmol/L (3.5-5.1); TOT PROT 6.5 g/dl (6.4-8.2)
[2019-01-30] MEDS: PRENATAL VITAMINS W/ FOLIC ACID TABLET (FP) PO SCH (10:50)
[2019-01-30] MEDS: NICOTINE 7 MG/24 HOURS TOPICAL PATCH TD SCH (10:50)
[2019-01-30 14:46] LABS: URINE APPEARANCE CLEAR; URINE BILIRUBIN NEGATIVE (NEGATIVE); URINE COLOR YELLOW; URINE GLUCOSE (UA) NEGATIVE (NEGATIVE); URINE KETONE NEGATIVE (NEGATIVE); URINE LEUK ESTERASE NEGATIVE (NEGATIVE); URINE NITRITE NEGATIVE (NEGATIVE); URINE PROTEIN NEGATIVE (NEGATIVE); URINE UROBILINOGEN 0.2 mg/dL (0.2-1.0)
[2019-01-30] MEDS: THIAMINE HCL 100 MG TABLET (FP) PO SCH (22:15)
[2019-01-31] MEDS ORDERED: METHADONE HCL 10 MG TABLET (FOR DETOX USE ONLY) PO ONE (10:00)
[2019-01-31] MEDS: NICOTINE 7 MG/24 HOURS TOPICAL PATCH TD SCH (10:59)
[2019-01-31] MEDS: PRENATAL VITAMINS W/ FOLIC ACID TABLET (FP) PO SCH (10:59)
[2019-01-31] MEDS: hydrOXYzine PAMOATE 25 MG CAPSULE (FP) PO PRN (10:59)
--- NOTE | 2019-01-31 14:25 | PN ---
S COWS - Scale Resting Pulse: 0= [place] 80 or Below Sweatin= No chills or Flushing Restless Observation: 1= Difficult to Sit Still Pupil Size: 1= Pupils >than Normal Bone or Joint Aches: 2= Severe Diffuse Aches Runny Nose/ Eye Tearin= Nasal Congestion GI Upset > 30mins: 1= Stomach Cramp Tremor Observation of Outstretched Hands: 2= Slight Tremor Visible Yawning Observation: 1= 1-2x During Session Anxiety or Irritability: 2=Irritable/Anxious Goose Flesh Skin: 0=Smooth Skin COWS Score: 11 S Progress Note (SOAP) Subjective: alert,irritable,anxious,interrupted sleep,pain in the body,back Objective: 01/31/19 14:29 Vital Signs Temperature 98.1 F 01/31/19 13:41 Pulse Rate 56 L 01/31/19 13:41 Respiratory Rate 18 01/31/19 13:41 Blood Pressure 113/63 01/31/19 13:41 O2 Sat by Pulse Oximetry (%) Laboratory Last Values WBC 7.8 K/mm3 (4.0-10.0) 01/30/19 07:00 RBC 4.34 M/mm3 (4.00-5.60) 01/30/19 07:00 Hgb 13.3 GM/dL (11.7-16.9) 01/30/19 07:00 Hct 40.3 % (35.4-49) 01/30/19 07:00 MCV 92.7 fl (80-96) 01/30/19 07:00 MCH 30.6 pg (25.7-33.7) 01/30/19 07:00 MCHC 33.0 g/dl (32.0-35.9) 01/30/19 07:00 RDW 13.5 % (11.9-15.9) 01/30/19 07:00 Plt Count 208 K/MM3 (134-434) 01/30/19 07:00 MPV 9.4 fl (7.5-11.1) 01/30/19 07:00 Sodium 141 mmol/L (136-145) 01/30/19 07:00 Potassium 4.4 mmol/L (3.5-5.1) 01/30/19 07:00 Chloride 107 mmol/L (98-107) 01/30/19 07:00 Carbon Dioxide 31 mmol/L (21-32) 01/30/19 07:00 Anion Gap 4 MMOL/L (8-16) L 01/30/19 07:00 BUN 15.1 mg/dL (7-18) 01/30/19 07:00 Creatinine 0.9 mg/dL (0.55-1.3) 01/30/19 07:00 Est GFR (CKD-EPI)AfAm 115.83 01/30/19 07:00 Est GFR (CKD-EPI)NonAf 99.94 01/30/19 07:00 Random Glucose 96 mg/dL (74-106) 01/30/19 07:00 Calcium 9.2 mg/dL (8.5-10.1) 01/30/19 07:00 Total Bilirubin 0.1 mg/dL (0.2-1) L 01/30/19 07:00 AST 13 U/L (15-37) L 01/30/19 07:00 ALT 19 U/L (13-61) 01/30/19 07:00 Alkaline Phosphatase 95 U/L (45-117) 01/30/19 07:00 Total Protein 6.5 g/dl (6.4-8.2) 01/30/19 07:00 Albumin 3.4 g/dl (3.4-5.0) 01/30/19 07:00 Urine Color Yellow 01/30/19 11:10 Urine Appearance Clear 01/30/19 11:10 Urine pH 5.0 (5.0-8.0) D 01/30/19 11:10 Ur Specific [place] 1.018 (1.010-1.035) 01/30/19 11:10 Urine Protein Negative (NEGATIVE) 01/30/19 11:10 Urine Glucose (UA) Negative (NEGATIVE) 01/30/19 11:10 Urine Ketones Negative (NEGATIVE) 01/30/19 11:10 Urine Blood Negative (NEGATIVE) 01/30/19 11:10 Urine Nitrite Negative (NEGATIVE) 01/30/19 11:10 Urine Bilirubin Negative (NEGATIVE) 01/30/19 11:10 Urine Urobilinogen 0.2 mg/dL (0.2-1.0) 01/30/19 11:10 Ur Leukocyte Esterase Negative (NEGATIVE) 01/30/19 11:10 RPR Titer Nonreactive (NONREACTIVE) 01/30/19 07:00 Assessment: 01/31/19 14:31 withdrawal symptom Plan: continue detox,methadone regimen,medication adjust,
[2019-01-31] MEDS: THIAMINE HCL 100 MG TABLET (FP) PO SCH (22:37)
[2019-02-01] MEDS ORDERED: METHADONE (DETOX) 10 MG, METHADONE (DETOX) 5 MG PO ONE (10:00)
[2019-02-01] MEDS ORDERED: METHADONE HCL 10 MG TABLET (FOR DETOX USE ONLY) PO ONE (10:00)
[2019-02-01] MEDS: PRENATAL VITAMINS W/ FOLIC ACID TABLET (FP) PO SCH (10:35)
[2019-02-01] MEDS: NICOTINE 7 MG/24 HOURS TOPICAL PATCH TD SCH (10:36)
--- NOTE | 2019-02-01 12:36 | PN ---
BHS COWS - Scale Resting Pulse: 0= [place] 80 or Below Sweatin= No chills or Flushing Restless Observation: 0= Sits Still Pupil Size: 1= Pupils >than Normal Bone or Joint Aches: 1= Mild Discomfort Runny Nose/ Eye Tearin= Nasal Congestion GI Upset > 30mins: 1= Stomach Cramp Tremor Observation of Outstretched Hands: 1= Tremor [place], Not Seen Yawning Observation: 0= None Anxiety or Irritability: 2=Irritable/Anxious Goose Flesh Skin: 0=Smooth Skin COWS Score: 7 BHS Progress Note (SOAP) Subjective: alert,irritable,anxious,interrupted sleep,pain in the body Objective: 02/01/19 12:35 Vital Signs Temperature 98.4 F 02/01/19 09:44 Pulse Rate 65 02/01/19 09:44 Respiratory Rate 18 02/01/19 09:44 Blood Pressure 123/70 02/01/19 09:44 O2 Sat by Pulse Oximetry (%) Assessment: 02/01/19 12:35 Laboratory Last Values WBC 7.8 K/mm3 (4.0-10.0) 01/30/19 07:00 RBC 4.34 M/mm3 (4.00-5.60) 01/30/19 07:00 Hgb 13.3 GM/dL (11.7-16.9) 01/30/19 07:00 Hct 40.3 % (35.4-49) 01/30/19 07:00 MCV 92.7 fl (80-96) 01/30/19 07:00 MCH 30.6 pg (25.7-33.7) 01/30/19 07:00 MCHC 33.0 g/dl (32.0-35.9) 01/30/19 07:00 RDW 13.5 % (11.9-15.9) 01/30/19 07:00 Plt Count 208 K/MM3 (134-434) 01/30/19 07:00 MPV 9.4 fl (7.5-11.1) 01/30/19 07:00 Sodium 141 mmol/L (136-145) 01/30/19 07:00 Potassium 4.4 mmol/L (3.5-5.1) 01/30/19 07:00 Chloride 107 mmol/L (98-107) 01/30/19 07:00 Carbon Dioxide 31 mmol/L (21-32) 01/30/19 07:00 Anion Gap 4 MMOL/L (8-16) L 01/30/19 07:00 BUN 15.1 mg/dL (7-18) 01/30/19 07:00 Creatinine 0.9 mg/dL (0.55-1.3) 01/30/19 07:00 Est GFR (CKD-EPI)AfAm 115.83 01/30/19 07:00 Est GFR (CKD-EPI)NonAf 99.94 01/30/19 07:00 Random Glucose 96 mg/dL (74-106) 01/30/19 07:00 Calcium 9.2 mg/dL (8.5-10.1) 01/30/19 07:00 Total Bilirubin 0.1 mg/dL (0.2-1) L 01/30/19 07:00 AST 13 U/L (15-37) L 01/30/19 07:00 ALT 19 U/L (13-61) 01/30/19 07:00 Alkaline Phosphatase 95 U/L (45-117) 01/30/19 07:00 Total Protein 6.5 g/dl (6.4-8.2) 01/30/19 07:00 Albumin 3.4 g/dl (3.4-5.0) 01/30/19 07:00 Urine Color Yellow 01/30/19 11:10 Urine Appearance Clear 01/30/19 11:10 Urine pH 5.0 (5.0-8.0) D 01/30/19 11:10 Ur Specific [place] 1.018 (1.010-1.035) 01/30/19 11:10 Urine Protein Negative (NEGATIVE) 01/30/19 11:10 Urine Glucose (UA) Negative (NEGATIVE) 01/30/19 11:10 Urine Ketones Negative (NEGATIVE) 01/30/19 11:10 Urine Blood Negative (NEGATIVE) 01/30/19 11:10 Urine Nitrite Negative (NEGATIVE) 01/30/19 11:10 Urine Bilirubin Negative (NEGATIVE) 01/30/19 11:10 Urine Urobilinogen 0.2 mg/dL (0.2-1.0) 01/30/19 11:10 Ur Leukocyte Esterase Negative (NEGATIVE) 01/30/19 11:10 RPR Titer Nonreactive (NONREACTIVE) 01/30/19 07:00 Plan: withdrawal symptom,continue detox methadone regimen,discharge in am
[2019-02-01 21:01] VITALS: BP 123/61; PULSE 57; TEMP 96.3
[2019-02-01] MEDS: THIAMINE HCL 100 MG TABLET (FP) PO SCH (22:29)
[2019-02-02] MEDS ORDERED: METHADONE HCL 5 MG TABLET (FOR DETOX USE ONLY) PO ONE (06:00)
[2019-02-02] MEDS: PRENATAL VITAMINS W/ FOLIC ACID TABLET (FP) PO SCH (09:09)
[2019-02-02] MEDS: NICOTINE 7 MG/24 HOURS TOPICAL PATCH TD SCH (09:09)
[2019-02-02] MEDS ORDERED: METHADONE HCL 10 MG TABLET (FOR DETOX USE ONLY) PO ONE (10:00)
--- NOTE | 2019-02-02 15:48 | DS ---
[facility] Detox Discharge Summary Admission Date: 01/29/19 Discharge Date: 02/02/19 - History Present History: Cocaine Dependence, Opioid Dependence Additional Comments: PATIENT REPORTS THAT HE IS MOVING TO [place] AND THAT HE WILL FOLLOW-UP ON HIS OWN ONCE THERE IN TERMS OF AFTERCARE PROGRAM. PATIENT WAS DISCHARGED FROM DETOX UNIT IN STABLE MEDICAL CONDITION. Pertinent Past History: Depression, History Of Panic Attacks, History Of Anxiety Disorder, Hep C ( Treated), History Of Skin Cancer of Left Shoulder, Weight Loss. - Physical Exam Results Vital Signs: Vital Signs Temperature 96.3 F L 02/01/19 21:00 Pulse Rate 57 L 02/01/19 21:00 Respiratory Rate 18 02/02/19 00:11 Blood Pressure 123/61 02/01/19 21:00 O2 Sat by Pulse Oximetry (%) Pertinent Admission Physical Exam Findings: WITHDRAWAL SYMPTOMS. Laboratory Tests 01/30/19 01/30/19 01/30/19 07:00 07:00 07:00 WBC 7.8 RBC 4.34 Hgb 13.3 Hct 40.3 MCV 92.7 MCH 30.6 MCHC 33.0 RDW 13.5 Plt Count 208 MPV 9.4 Sodium 141 Potassium 4.4 Chloride 107 Carbon Dioxide 31 Anion Gap 4 L BUN 15.1 Creatinine 0.9 Est GFR (CKD-EPI)AfAm 115.83 Est GFR (CKD-EPI)NonAf 99.94 Random Glucose 96 Calcium 9.2 Total Bilirubin 0.1 L AST 13 L ALT 19 Alkaline Phosphatase 95 Total Protein 6.5 Albumin 3.4 Urine Color Urine Appearance Urine pH Ur Specific [place] Urine Protein Urine Glucose (UA) Urine Ketones Urine Blood Urine Nitrite Urine Bilirubin Urine Urobilinogen Ur Leukocyte Esterase RPR Titer Nonreactive 01/30/19 11:10 WBC RBC Hgb Hct MCV MCH MCHC RDW Plt Count MPV Sodium Potassium Chloride Carbon Dioxide Anion Gap BUN Creatinine Est GFR (CKD-EPI)AfAm Est GFR (CKD-EPI)NonAf Random Glucose Calcium Total Bilirubin AST ALT Alkaline Phosphatase Total Protein Albumin Urine Color Yellow Urine Appearance Clear Urine pH 5.0 D Ur Specific [place] 1.018 Urine Protein Negative Urine Glucose (UA) Negative Urine Ketones Negative Urine Blood Negative Urine Nitrite Negative Urine Bilirubin Negative Urine Urobilinogen 0.2 Ur Leukocyte Esterase Negative RPR Titer LABS NOTED. - Treatment Hospital Course: Detox Protocol Followed, Detoxed Safely, Responded well, Discharged Condition Good Patient has Accepted a Rehab Referral to: PT. MOVING TO [facility], WILL FOLLOW -UP FOR OP PROGRAM ONCE THERE. - Medication Discharge Medications: Ambulatory Orders NK [No Known Home Medication] 12/25/16 - Diagnosis (1) Opioid dependence with withdrawal Status: Acute (2) Weight loss Status: Acute (3) Cocaine dependence Status: Chronic Qualifiers: Substance use status: uncomplicated Qualified Code(s): F14.20 - Cocaine dependence, uncomplicated (4) Nicotine dependence Status: Chronic Qualifiers: Nicotine product type: cigarettes Substance use status: in withdrawal Qualified Code(s): F17.213 - Nicotine dependence, cigarettes, with withdrawal (5) Hepatitis C Status: Resolved Qualifiers: Viral hepatitis chronicity: chronic Hepatic coma status: without hepatic coma Qualified Code(s): B18.2 - Chronic viral hepatitis C - AMA Did Patient Leave Against Medical Advice: No BHS COWS - Scale Resting Pulse: 0= [place] 80 or Below Sweatin= No chills or Flushing Restless Observation: 1= Difficult to Sit Still Pupil Size: 0= Normal to Room Light Bone or Joint Aches: 1= Mild Discomfort Runny Nose/ Eye Tearin= None GI Upset > 30mins: 0= None Tremor Observation of Outstretched Hands: 0= None Yawning Observation: 0= None Anxiety or Irritability: 2=Irritable/Anxious Goose Flesh Skin: 0=Smooth Skin COWS Score: 4
[2019-02-03] MEDS ORDERED: METHADONE HCL 5 MG TABLET (FOR DETOX USE ONLY) PO ONE (06:00)
== END 2019-02-02 08:45 | disposition home or self-care (01) | DRG 773 ==
LOC: YASAS 10:52 → Y3N 12:03
PROVIDERS: ADMIT Surgery; ATTEND Surgery
PROC: HZ2ZZZZ Detoxification Services for Substance Abuse Treatment (ICD-10-PCS; principal; 2019-01-29)
DX: F11.23 Opioid dependence with withdrawal (principal); F13.20 Sedative, hypnotic or anxiolytic dependence, uncomplicated; F14.20 Cocaine dependence, uncomplicated; F17.213 Nicotine dependence, cigarettes, with withdrawal; F32.9 Major depressive disorder, single episode, unspecified; B18.2 Chronic viral hepatitis C; R63.4 Abnormal weight loss; Z68.22 Body mass index [BMI] 22.0-22.9, adult
CPT/HCPCS: 36415; 80053; 81003; 85027; 86593

== ENCOUNTER 2019-02-23 12:10 | Inpatient (IN) | payer OTHER ==
[2019-02-23 18:20] VITALS: BMI 22.3
--- NOTE | 2019-02-23 20:37 | HP ---
COWS - Scale Resting Pulse: 0= [place] 80 or Below Sweatin= Chills/Flushing Restless Observation: 1= Difficult to Sit Still Pupil Size: 0= Normal to Room Light Bone or Joint Aches: 4=Acute Joint/Muscle Pain Runny Nose/ Eye Tearin= Runny Nose/Eyes GI Upset > 30mins: 3= Vomiting/Diarrhea (vomiting x 1, diarrhea x 2) Tremor Observation: 4= Gross Tremor/Twitching Yawning Observation: 1= 1-2x During Session Anxiety or Irritability: 1=Feels Anxious/Irritable Goose Flesh Skin: 3=Piloerection COWS Score: 20 CIWA Score Nausea/Vomitin Muscle Tremors: 4-Moderate,w/Arms Extend Anxiety: 3 Agitation: 3 Paroxysmal Sweats: 3 Orientation: 2-Disoriented Date<2 days Tacttile Disturbances: 0-None Auditory Disturbances: 0-None Visual Disturbances: 0-None Headache: 3-Moderate CIWA-Ar Total Score: 20 - Admission Criteria OASAS Guidelines: Admission for Medically Managed Detox: Requires at least one of the followin. CIWA greater than 12 2. Seizures within the past 24 hours 3. Delirium tremens within the past 24 hours 4. Hallucinations within the past 24 hours 5. Acute intervention needed for co occurring medical disorder 6. Acute intervention needed for co occurring psychiatric disorder 7. Severe withdrawal that cannot be handled at a lower level of care (continued vomiting, continued diarrhea, abnormal vital signs) requiring intravenous medication and/or fluids 8. Admission ROS [facility] - [facility] Chief Complaint: Alcohol and heroin withdrawal symptoms Allergies/Adverse Reactions: Allergies Allergy/AdvReac Type Severity Reaction Status Date / Time No Known Allergies Allergy Verified 02/23/19 18:17 History of Present Illness: 48 years old male with 31 years of heroin and alcohol dependence is seeking admission to detox. Patient has been in multiple inpatient detox and was last admitted for the period 01/29/2019 - 02/05/2019 here at [facility]. He reports insignificant period of sobriety. He has medical history of Hep. C, depression, anxiety and melanoma on the left shoulder. He reports that he overdosed 2 months ago and has had intermittent blackouts. He denies suicidal ideation at this time. Exam Limitations: Clinical Condition - Ebola screening Have you traveled outside of the country in the last 21 days: No Have you had contact with anyone from an Ebola affected area: No Do you have a fever: No - Review of Systems Constitutional: Chills, Malaise, Changes in sleep EENT: reports: Sinus Pressure Respiratory: reports: No Symptoms reported Cardiac: reports: No Symptoms Reported GI: reports: Diarrhea, Poor Appetite, Poor Fluid Intake, Vomiting : reports: No Symptoms Reported Musculoskeletal: reports: Back Pain, Joint Pain, Muscle Pain Integumentary: reports: Dryness, Flushing Neuro: reports: Headache, Tingling, Tremors Endocrine: reports: No Symptoms Reported Hematology: reports: No Symptoms Reported Psychiatric: reports: Mood/Affect Appropiate, Agitated, Anxious Other Systems: Reviewed and Negative Patient History - Patient Medical History Hx Anemia: No Hx Asthma: No Hx Chronic Obstructive Pulmonary Disease (COPD): No Hx Cancer: No Hx Cardiac Disorders: No Hx Congestive Heart Failure: No Hx Hypertension: No Hx Hypercholesterolemia: No Hx Pacemaker: No HX Cerebrovascular Accident: No Hx Seizures: No Hx Dementia: No Hx Diabetes: No Hx Gastrointestinal Disorders: No Hx Liver Disease: Yes (Hep. C) Hx Genitourinary Disorders: No Hx Sexually Transmitted Disorders: No Hx Renal Disease (ESRD): No Hx Thyroid Disease: No Hx Human Immunodeficiency Virus (HIV): No (Negative 2018) Hx Hepatitis C: Yes (treated in 2018 but didn't complete) Hx Depression: Yes (Not on medication) Hx Suicide Attempt: No (Denies suicidal ideation at this time) Hx Bipolar Disorder: No Hx Schizophrenia: No Other Medical History: Anxiety - Not on medication - Patient Surgical History Past Surgical History: Yes Hx Neurologic Surgery: No Hx Cataract Extraction: No Hx Cardiac Surgery: No Hx Lung Surgery: No Hx Breast Surgery: No Hx Breast Biopsy: No Hx Abdominal Surgery: No Hx Appendectomy: No Hx Cholecystectomy: No Hx Genitourinary Surgery: No Hx Section: No Hx Orthopedic Surgery: No Other Surgical History: left shoulder skin ca 2009 Anesthesia Reaction: No - PPD History Previous Implant?: Yes Documented Results: Negative w/proof Implanted On Prior [facility] Admission?: Yes Date: 12/27/16 Results: NEGATIVE PPD to be Administered?: Yes - Reproductive History Patient is a Female of Child Bearing Age (11 -55 yrs old): No (male) - Smoking Cessation Smoking history: Current every day smoker Have you smoked in the past 12 months: Yes Aproximately how many cigarettes per day: 10 Cigars Per Day: 0 Hx Chewing Tobacco Use: No Initiated information on smoking cessation: Yes 'Breaking Loose' booklet given: 02/23/19 - Substance & Tx. History Hx Alcohol Use: Yes Hx Substance Use: Yes Substance Use Type: Alcohol, Cocaine, Opiates Hx Substance Use Treatment: Yes ([facility]) - Substances abused Alprazolam (Xanax) Substance route: Oral Frequency: Daily Amount used: (2) 3mg/day Age of first use: 34 Date of last use: 12/04/18 Heroin Substance route: Inhalation Frequency: Daily Amount used: 4 BAGS Age of first use: 17 Date of last use: 02/22/19 Benzodiazepine (Klonopin) Substance route: Oral Frequency: 3-6 times per week Amount used: 2 PILLS Age of first use: 17 Date of last use: 02/22/19 Alcohol Substance route: Oral Amount used: 2 six packs (12oz beers) Age of first use: 16 Date of last use: 02/22/19 Admission Physical Exam [facility] - Vital Signs Vital Signs: Vital Signs - 24 hr 02/23/19 18:18 Temperature 97.4 F L Pulse Rate 64 Respiratory 16 Rate Blood Pressure 124/71 - Physical General Appearance: Yes: Moderate Distress, Tremorous, Irritable, Anxious HEENTM: Yes: Within Normal Limits Respiratory: Yes: Lungs Clear, Normal Breath Sounds, No Respiratory Distress Neck: Yes: Within Normal Limits Breast: Yes: Breast Exam Deferred Cardiology: Yes: Within Normal Limits, Regular Rhythm, Regular Rate Genitourinary: Yes: Within Normal Limits Back: Yes: Normal Inspection Musculoskeletal: Yes: Within Normal Limits Extremities: Yes: Tremors Neurological: Yes: Alert, Normal Mood/Affect Integumentary: Yes: Warm Lymphatic: Yes: Within Normal Limits - Diagnostic (1) Alcohol dependence with withdrawal Current Visit: Yes Status: Chronic (2) Anxiety Current Visit: Yes Status: Chronic (3) Opioid dependence with withdrawal Current Visit: Yes Status: Chronic (4) Cocaine dependence Current Visit: Yes Status: Chronic Qualifiers: Substance use status: in withdrawal Qualified Code(s): F14.23 - Cocaine dependence with withdrawal (5) Nicotine dependence Current Visit: Yes Status: Chronic Qualifiers: Nicotine product type: cigarettes Substance use status: in withdrawal Qualified Code(s): F17.213 - Nicotine dependence, cigarettes, with withdrawal (6) Depression (emotion) Current Visit: Yes Status: Chronic Qualifiers: Depression Type: unspecified Qualified Code(s): F32.9 - Major depressive disorder, single episode, unspecified (7) Hepatitis C Current Visit: Yes Status: Chronic Qualifiers: Viral hepatitis chronicity: chronic Hepatic coma status: without hepatic coma Qualified Code(s): B18.2 - Chronic viral hepatitis C Cleared for Admission S - Detox or Rehab [facility] Level of Care: Medically Managed Detox Regimen/Protocol: Methadone/Librium Breathalyzer - Breathalyzer Breathalyzer: 0 Urine Drug Screen - Test Device Lot number: [id number] Expiration date: 10/27/20 - Control Is test valid?: Yes - Results Drug screen NEGATIVE: No Urine drug screen results: GUERLINE-Cocaine, MOP-Opiates, MTD-Methadone Inpatient Rehab Admission - Rehab Decision to Admit Inpatient rehab admission?: No
[2019-02-23] MEDS ORDERED: ACETAMINOPHEN 325 MG TABLET (FP) PO PRN ×2 (20:47)
[2019-02-23] MEDS ORDERED: MAG HYDROX/AL HYDROX/SIMETH 30 ML UNIT-DOSE CUP PO PRN (20:47)
[2019-02-23] MEDS ORDERED: MAGNESIUM CITRATE 300 ML BOTTLE PO PRN (20:47)
[2019-02-23] MEDS ORDERED: cloNIDine HCL 0.1 MG TABLET PO PRN (20:47)
[2019-02-23] MEDS ORDERED: MAGNESIUM HYDROX 2400MG/30ML ORAL SUSPENSION 30 ML CUP PO PRN (20:47)
[2019-02-23] MEDS ORDERED: METHADONE HCL 10 MG TABLET (FOR DETOX USE ONLY) PO ONE (20:47)
[2019-02-23] MEDS ORDERED: IBUPROFEN 400 MG TABLET (FP) PO PRN (20:47)
[2019-02-23] MEDS ORDERED: MENTHOL/PHENOL 1 EACH UD MM PRN (20:47)
[2019-02-23] MEDS ORDERED: METHOCARBAMOL 500 MG TABLET PO PRN (20:47)
[2019-02-23] MEDS ORDERED: MELATONIN 5 MG TABLETS PO PRN (20:47)
[2019-02-23] MEDS ORDERED: BISMUTH SUBSALICYLATE 524 MG/30 ML UD PO PRN (20:47)
[2019-02-23] MEDS ORDERED: NICOTINE POLACRILEX 2 MG GUM BUC PRN (20:47)
[2019-02-23] MEDS ORDERED: hydrOXYzine PAMOATE 25 MG CAPSULE (FP) PO PRN (20:47)
[2019-02-23] MEDS ORDERED: chlordiazePOXIDE HCL 25 MG CAPSULE PO PRN (20:47)
[2019-02-23] MEDS: chlordiazePOXIDE HCL 25 MG CAPSULE PO SCH (22:30)
[2019-02-23] MEDS: THIAMINE HCL 100 MG TABLET (FP) PO SCH (22:34)
[2019-02-24] MEDS: chlordiazePOXIDE HCL 25 MG CAPSULE PO SCH ×4 (08:04→22:22)
[2019-02-24] MEDS ORDERED: METHADONE HCL 10 MG TABLET (FOR DETOX USE ONLY) ONE (09:15)
[2019-02-24] MEDS ORDERED: METHADONE HCL 5 MG TABLET (FOR DETOX USE ONLY) ONE (09:15)
[2019-02-24] MEDS ORDERED: METHADONE (DETOX) 20 MG, METHADONE (DETOX) 5 MG PO ONE (10:00)
[2019-02-24 10:33] LABS: HEMATOCRIT 39.4 % (35.4-49); HEMOGLOBIN 13.6 GM/dL (11.7-16.9); MCH 31.7 pg (25.7-33.7); MCHC 34.5 g/dl (32.0-35.9); MEAN CELL VOLUME 91.9 fl (80-96); MEAN PLT VOLUME 9.2 fl (7.5-11.1); PLATELET COUNT 203 K/MM3 (134-434); RBC 4.29 M/mm3 (4.00-5.60); RDW 13.1 % (11.9-15.9); WHITE BLOOD COUNT 7.1 K/mm3 (4.0-10.0)
[2019-02-24 10:36] LABS: ALBUMIN 3.2 g/dl (3.4-5.0); BILIRUBIN,TOTAL 0.2 mg/dL (0.2-1); BLOOD UREA NITROGEN 18.5 mg/dL (7-18); CALCIUM 8.5 mg/dL (8.5-10.1); CREATININE 0.9 mg/dL (0.55-1.3); POTASSIUM 4.2 mmol/L (3.5-5.1); TOT PROT 6.2 g/dl (6.4-8.2)
[2019-02-24] MEDS: PRENATAL VITAMINS W/ FOLIC ACID TABLET (FP) PO SCH (10:39)
[2019-02-24] MEDS: NICOTINE 14 MG/24 HOURS TOPICAL PATCH TD SCH (10:40)
--- NOTE | 2019-02-24 14:06 | PN ---
S CIWA - CIWA Score Nausea/Vomitin-No Nausea/No Vomiting Muscle Tremors: 2 Anxiety: 3 Agitation: 2 Paroxysmal Sweats: 3 Orientation: 0-Oriented Tacttile Disturbances: 1-Very Mild Itch/Numbness Auditory Disturbances: 0-None Visual Disturbances: 0-None Headache: 2-Mild CIWA-Ar Total Score: 13 BHS COWS - Scale Resting Pulse: 0= [place] 80 or Below Sweatin= Beads of Sweat on Face Restless Observation: 1= Difficult to Sit Still Pupil Size: 0= Normal to Room Light Bone or Joint Aches: 2= Severe Diffuse Aches Runny Nose/ Eye Tearin= None GI Upset > 30mins: 0= None Tremor Observation of Outstretched Hands: 2= Slight Tremor Visible Yawning Observation: 1= 1-2x During Session Anxiety or Irritability: 2=Irritable/Anxious Goose Flesh Skin: 0=Smooth Skin COWS Score: 11 S Progress Note (SOAP) Subjective: c/o anxiety, irritability, headache, sweats, shakes, and muscle aches. Objective: 02/24/19 14:06 Vital Signs 02/24/19 02/24/19 07:30 09:54 Temperature 97.7 F 98.1 F Pulse Rate 55 L 65 Respiratory 18 16 Rate Blood Pressure 112/60 121/52 L Lab Results WBC 7.1 K/mm3 (4.0-10.0) 02/24/19 07:40 RBC 4.29 M/mm3 (4.00-5.60) 02/24/19 07:40 Hgb 13.6 GM/dL (11.7-16.9) 02/24/19 07:40 Hct 39.4 % (35.4-49) 02/24/19 07:40 MCV 91.9 fl (80-96) 02/24/19 07:40 MCHC 34.5 g/dl (32.0-35.9) 02/24/19 07:40 RDW 13.1 % (11.9-15.9) 02/24/19 07:40 Plt Count 203 K/MM3 (134-434) 02/24/19 07:40 Sodium 143 mmol/L (136-145) 02/24/19 07:40 Potassium 4.2 mmol/L (3.5-5.1) 02/24/19 07:40 Chloride 109 mmol/L (98-107) H 02/24/19 07:40 Carbon Dioxide 28 mmol/L (21-32) 02/24/19 07:40 Anion Gap 6 MMOL/L (8-16) L 02/24/19 07:40 BUN 18.5 mg/dL (7-18) H 02/24/19 07:40 Creatinine 0.9 mg/dL (0.55-1.3) 02/24/19 07:40 Random Glucose 103 mg/dL (74-106) 02/24/19 07:40 Calcium 8.5 mg/dL (8.5-10.1) 02/24/19 07:40 Labs noted. Assessment: 02/24/19 14:06 Pt is alert and oriented x3 and in no acute respiratory distress. Full ROM, ambulating in the unit. Withdrawal symptoms. Plan: continue detox.
--- NOTE | 2019-02-24 17:26 | CONSULT ---
[facility] Psychiatric Consult - Data Date of interview: 02/24/19 Admission source: [facility] Identifying data: Another admission to [facility] for this 48 y/o male self-referred for detoxification. [place] issues : heroin, cocaine, benzodiazepine, nicotine. 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 Substance Abuse History: Discussed with patient. Details in current [facility] report as follows : Smoking history: Current every day smoker. Have you smoked in the past 12 months: Yes. Aproximately how many cigarettes per day: 10. Cigars Per Day: 0. Hx Chewing Tobacco Use: No. Initiated information on smoking cessation : Yes. 'Breaking Loose' booklet given: 02/23/19. - Substance & Tx. History. Hx Alcohol Use: Yes. Hx Substance Use: Yes. Substance Use Type: Alcohol, Cocaine, Opiates. Hx Substance Use Treatment: Yes ([facility]). - Substances abused. Alprazolam (Xanax). Substance route: Oral. Frequency: Daily. Amount used: (2) 3mg/day. Age of first use: 34. Date of last use: 12/04/18. * * Heroin. Substance route: Inhalation. Frequency: Daily. Amount used: 4 BAGS. Age of first use: 17. Date of last use: 02/22/19. Benzodiazepine ( Klonopin). Substance route: Oral. Frequency: 3-6 times per week. Amount used : 2 PILLS. Age of first use: 17. Date of last use: 02/22/19. Alcohol. Substance route: Oral. Amount used: 2 six packs (12oz beers). Age of first use : 16. Date of last use: 02/22/19 Medical History: Hepatitis C and a history of skin cancer (right shoulder). Psychiatric History: Patient confirms a history of two psychiatric hospitalizations at [facility] (Hetal-2 unit) in 2005. Reportedly diagnosed with MDD and Anxiety Disorder and medicated, in the past, with seroquel + trazodone (doses not recalled). Mr Jin admits to total neglect of psychiatric OPD care. " I have not taken those medications for more than a year." History of one suicide attempt (June 2007) via overdose with heroin. Physical/Sexual Abuse/Trauma History: Patient denies. Additional Comment: Urine drug screen results: GUERLINE-Cocaine, MOP-Opiates, MTD- Methadone. Noted. Mental Status Exam - Mental Status Exam Alert and Oriented to: Time, Place, Person Cognitive Function: Good Patient Appearance: Well Groomed Mood: Withdrawn, Hopeful Affect: Appropriate, Normal Range Patient Behavior: Fatigued, Cooperative Speech Pattern: Clear, Appropriate Voice Loudness: Normal Thought Process: Intact, Goal Oriented Thought Disorder: Not Present Hallucinations: Denies Suicidal Ideation: Denies Homicidal Ideation: Denies Insight/Judgement: Poor Sleep: Well Appetite: Good Muscle strength/Tone: Normal Gait/Station: Normal Psychiatric Findings - Problem List ([place] 1, 2,3) (1) Alcohol dependence with withdrawal Current Visit: Yes Status: Acute (2) Opioid dependence with withdrawal Current Visit: Yes Status: Acute (3) Benzodiazepine dependence Current Visit: Yes Status: Acute (4) Cocaine dependence Current Visit: Yes Status: Chronic Qualifiers: Substance use status: in withdrawal Qualified Code(s): F14.23 - Cocaine dependence with withdrawal (5) Nicotine dependence Current Visit: Yes Status: Chronic Qualifiers: Nicotine product type: cigarettes Substance use status: in withdrawal Qualified Code(s): F17.213 - Nicotine dependence, cigarettes, with withdrawal - Initial Treatment Plan Initial Treatment Plan: Psychoeducation. Sleep hygiene. Support. Detoxification. Groups. AA/NA meetings. Discussion of MAT-related services ( relapse prevention). Observation.
[2019-02-24] MEDS: THIAMINE HCL 100 MG TABLET (FP) PO SCH (22:22)
[2019-02-25] MEDS: chlordiazePOXIDE HCL 25 MG CAPSULE PO SCH ×4 (06:47→22:14)
[2019-02-25] MEDS ORDERED: METHADONE HCL 10 MG TABLET (FOR DETOX USE ONLY) PO ONE (10:00)
[2019-02-25] MEDS: PRENATAL VITAMINS W/ FOLIC ACID TABLET (FP) PO SCH (10:54)
[2019-02-25] MEDS: NICOTINE 14 MG/24 HOURS TOPICAL PATCH TD SCH (10:55)
--- NOTE | 2019-02-25 18:29 | PN ---
[facility] CIWA - CIWA Score Nausea/Vomitin-Mild Nausea/No Vomiting Muscle Tremors: 4-Moderate,w/Arms Extend Anxiety: 4-Mod. Anxious/Guarded Agitation: 3 Paroxysmal Sweats: 3 Orientation: 0-Oriented Tacttile Disturbances: 0-None Auditory Disturbances: 0-None Visual Disturbances: 0-None Headache: 0-None Present CIWA-Ar Total Score: 15 S COWS - Scale Resting Pulse: 0= [place] 80 or Below Sweatin= Chills/Flushing Restless Observation: 3= Extraneous Movement Pupil Size: 0= Normal to Room Light Bone or Joint Aches: 2= Severe Diffuse Aches Runny Nose/ Eye Tearin= Runny Nose/Eyes GI Upset > 30mins: 3= Vomiting/Diarrhea Tremor Observation of Outstretched Hands: 0= None Yawning Observation: 1= 1-2x During Session Anxiety or Irritability: 2=Irritable/Anxious Goose Flesh Skin: 0=Smooth Skin COWS Score: 14 [facility] Progress Note (SOAP) Subjective: Sweating, interrupted sleep Objective: 02/25/19 18:28 Last Vital Signs Temp Pulse Resp BP Pulse Ox 97.2 F L 63 18 124/60 02/25/19 17:25 02/25/19 17:25 02/25/19 17:25 02/25/19 17:25 Laboratory Tests 02/24/19 02/24/19 02/24/19 07:40 07:40 07:40 WBC 7.1 RBC 4.29 Hgb 13.6 Hct 39.4 MCV 91.9 MCH 31.7 MCHC 34.5 RDW 13.1 Plt Count 203 MPV 9.2 Sodium 143 Potassium 4.2 Chloride 109 H Carbon Dioxide 28 Anion Gap 6 L BUN 18.5 H Creatinine 0.9 Est GFR (CKD-EPI)AfAm 115.83 Est GFR (CKD-EPI)NonAf 99.94 Random Glucose 103 Calcium 8.5 Total Bilirubin 0.2 AST 16 ALT 23 Alkaline Phosphatase 101 Total Protein 6.2 L Albumin 3.2 L RPR Titer Nonreactive Labs reviewed Assessment: 02/25/19 18:29 Withdrawal sxs Plan: Continue detox Encouraged PO water intake
[2019-02-25] MEDS: THIAMINE HCL 100 MG TABLET (FP) PO SCH (22:14)
[2019-02-26] MEDS ORDERED: chlordiazePOXIDE HCL 10 MG CAPSULE PO PRN
[2019-02-26] MEDS: chlordiazePOXIDE HCL 10 MG CAPSULE PO SCH ×4 (07:24→22:21)
[2019-02-26] MEDS ORDERED: METHADONE HCL 5 MG TABLET (FOR DETOX USE ONLY) ONE (08:53)
[2019-02-26] MEDS ORDERED: METHADONE HCL 10 MG TABLET (FOR DETOX USE ONLY) ONE (08:53)
[2019-02-26] MEDS ORDERED: METHADONE (DETOX) 10 MG, METHADONE (DETOX) 5 MG PO ONE (10:00)
[2019-02-26] MEDS: PRENATAL VITAMINS W/ FOLIC ACID TABLET (FP) PO SCH (10:30)
[2019-02-26] MEDS: NICOTINE 14 MG/24 HOURS TOPICAL PATCH TD SCH (10:30)
--- NOTE | 2019-02-26 10:45 | PN ---
[facility] CIWA - CIWA Score Nausea/Vomitin-No Nausea/No Vomiting Muscle Tremors: 2 Anxiety: 2 Agitation: 2 Paroxysmal Sweats: 2 Orientation: 0-Oriented Tacttile Disturbances: 0-None Auditory Disturbances: 0-None Visual Disturbances: 0-None Headache: 1-Very Mild CIWA-Ar Total Score: 9 BHS COWS - Scale Resting Pulse: 0= [place] 80 or Below Sweatin= Chills/Flushing Restless Observation: 1= Difficult to Sit Still Pupil Size: 0= Normal to Room Light Bone or Joint Aches: 1= Mild Discomfort Runny Nose/ Eye Tearin= None GI Upset > 30mins: 0= None Tremor Observation of Outstretched Hands: 1= Tremor [place], Not Seen Yawning Observation: 1= 1-2x During Session Anxiety or Irritability: 1=Feels Anxious/Irritable Goose Flesh Skin: 0=Smooth Skin COWS Score: 6 S Progress Note (SOAP) Subjective: little sweats mild shakes body aches interrupted sleep anxiety Objective: 02/26/19 10:44 Vital Signs Temperature 97.3 F L 02/26/19 09:18 Pulse Rate 56 L 02/26/19 09:18 Respiratory Rate 18 02/26/19 09:18 Blood Pressure 120/64 02/26/19 09:18 O2 Sat by Pulse Oximetry (%) Laboratory Tests 02/24/19 02/24/19 02/24/19 07:40 07:40 07:40 WBC 7.1 RBC 4.29 Hgb 13.6 Hct 39.4 MCV 91.9 MCH 31.7 MCHC 34.5 RDW 13.1 Plt Count 203 MPV 9.2 Sodium 143 Potassium 4.2 Chloride 109 H Carbon Dioxide 28 Anion Gap 6 L BUN 18.5 H Creatinine 0.9 Est GFR (CKD-EPI)AfAm 115.83 Est GFR (CKD-EPI)NonAf 99.94 Random Glucose 103 Calcium 8.5 Total Bilirubin 0.2 AST 16 ALT 23 Alkaline Phosphatase 101 Total Protein 6.2 L Albumin 3.2 L RPR Titer Nonreactive labs noted aaox3 ambulating no acute distress Assessment: 02/26/19 10:45 withdrawal sx Plan: continue detox increase fluids
--- NOTE | 2019-02-26 13:26 | EKG ---
Test Reason : Blood Pressure : / mmHG Vent. Rate : 058 BPM Atrial Rate : 058 BPM P-R Int : 130 ms QRS Dur : 098 ms QT Int : 466 ms P-R-T Axes : -06 086 059 degrees QTc Int : 457 ms SINUS BRADYCARDIA OTHERWISE NORMAL ECG WHEN COMPARED WITH ECG OF 04-DEC-2018 18:47, NO SIGNIFICANT CHANGE WAS FOUND Confirmed by ANGELA BENITEZ MD ([id number]) on 02/26/2019 1:26:45 PM Referred By: RIKI YUNG Confirmed By:ANGELA BENITEZ MD
[2019-02-26] MEDS: THIAMINE HCL 100 MG TABLET (FP) PO SCH (22:20)
[2019-02-27] MEDS: chlordiazePOXIDE HCL 10 MG CAPSULE PO SCH ×2 (06:45→17:13)
[2019-02-27] MEDS ORDERED: METHADONE HCL 10 MG TABLET (FOR DETOX USE ONLY) PO ONE (10:00)
[2019-02-27] MEDS: PRENATAL VITAMINS W/ FOLIC ACID TABLET (FP) PO SCH (10:57)
[2019-02-27] MEDS: NICOTINE 14 MG/24 HOURS TOPICAL PATCH TD SCH (10:57)
--- NOTE | 2019-02-27 14:18 | PN ---
[facility] CIWA - CIWA Score Nausea/Vomitin-No Nausea/No Vomiting Muscle Tremors: 2 Anxiety: 1-Mildly Anxious Agitation: 1-Slight > Activity Paroxysmal Sweats: No Perspiration Orientation: 0-Oriented Tacttile Disturbances: 0-None Auditory Disturbances: 0-None Visual Disturbances: 0-None Headache: 0-None Present CIWA-Ar Total Score: 4 S COWS - Scale Resting Pulse: 0= [place] 80 or Below Sweatin= No chills or Flushing Restless Observation: 1= Difficult to Sit Still Pupil Size: 0= Normal to Room Light Bone or Joint Aches: 1= Mild Discomfort Runny Nose/ Eye Tearin= None GI Upset > 30mins: 0= None Tremor Observation of Outstretched Hands: 0= None Yawning Observation: 0= None Anxiety or Irritability: 1=Feels Anxious/Irritable Goose Flesh Skin: 0=Smooth Skin COWS Score: 3 S Progress Note (SOAP) Subjective: feeling much better sweats/anxiety Objective: 02/27/19 14:17 Vital Signs Temperature 97.9 F 02/27/19 13:33 Pulse Rate 62 02/27/19 13:33 Respiratory Rate 16 02/27/19 13:33 Blood Pressure 129/68 02/27/19 13:33 O2 Sat by Pulse Oximetry (%) aaox3 ambulating no acute distress Assessment: 02/27/19 14:18 mild withdrawals Plan: continue detox d/c in am
[2019-02-28] MEDS ORDERED: chlordiazePOXIDE HCL 10 MG CAPSULE PO ONE (05:00)
[2019-02-28] MEDS ORDERED: METHADONE HCL 5 MG TABLET (FOR DETOX USE ONLY) PO ONE (06:00)
[2019-02-28 09:30] VITALS: BP 125/63; PULSE 66; TEMP 97.9
== END 2019-02-28 09:03 | disposition home or self-care (01) | DRG 773 ==
LOC: YASAS 12:10 → Y6N 21:23
PROVIDERS: ADMIT Surgery; ATTEND Surgery
PROC: HZ2ZZZZ Detoxification Services for Substance Abuse Treatment (ICD-10-PCS; principal; 2019-02-23)
DX: F11.23 Opioid dependence with withdrawal (principal); F10.230 Alcohol dependence with withdrawal, uncomplicated; F13.230 Sedative, hypnotic or anxiolytic dependence with withdrawal, uncomplicated; F14.20 Cocaine dependence, uncomplicated; F17.213 Nicotine dependence, cigarettes, with withdrawal; F41.9 Anxiety disorder, unspecified; F32.9 Major depressive disorder, single episode, unspecified; B18.2 Chronic viral hepatitis C; Z85.828 Personal history of other malignant neoplasm of skin
CPT/HCPCS: 36415; 80053; 85027; 86593; 93005; 93010

== ENCOUNTER 2019-06-06 13:47 | Inpatient (IN) | payer OTHER ==
[2019-06-06 17:34] VITALS: BMI 22.1
--- NOTE | 2019-06-06 19:54 | HP ---
COWS - Scale Resting Pulse: 0= [place] 80 or Below Sweatin=Flushed/Facial Moisture Restless Observation: 0= Sits Still Pupil Size: 1= Pupils >than Normal Bone or Joint Aches: 4=Acute Joint/Muscle Pain Runny Nose/ Eye Tearin= Nasal Congestion GI Upset > 30mins: 3= Vomiting/Diarrhea Tremor Observation: 2= Slight Tremor Visible Yawning Observation: 1= 1-2x During Session Anxiety or Irritability: 4=Extreme Anxiety Goose Flesh Skin: 0=Smooth Skin COWS Score: 18 CIWA Score Nausea/Vomitin Muscle Tremors: 4-Moderate,w/Arms Extend Anxiety: 3 Agitation: 3 Paroxysmal Sweats: 2 Orientation: 1-Uncertain about Date Tacttile Disturbances: 0-None Auditory Disturbances: 0-None Visual Disturbances: 0-None Headache: 3-Moderate CIWA-Ar Total Score: 19 - Admission Criteria [facility] Guidelines: Admission for Medically Managed Detox: Requires at least one of the followin. CIWA greater than 12 2. Seizures within the past 24 hours 3. Delirium tremens within the past 24 hours 4. Hallucinations within the past 24 hours 5. Acute intervention needed for co occurring medical disorder 6. Acute intervention needed for co occurring psychiatric disorder 7. Severe withdrawal that cannot be handled at a lower level of care (continued vomiting, continued diarrhea, abnormal vital signs) requiring intravenous medication and/or fluids 8. Admitting History and Physical - Smoking History Smoking history: Current every day smoker Have you smoked in the past 12 months: Yes Aproximately how many cigarettes per day: 10 - Alcohol/Substance Use Hx Alcohol Use: Yes Admission [facility] Chief Complaint: Heroin, alcohol and Xanax withdrawal symptoms Allergies/Adverse Reactions: Allergies Allergy/AdvReac Type Severity Reaction Status Date / Time No Known Allergies Allergy Verified 06/06/19 17:25 History of Present Illness: 49 years old male with 32 years of heroin, Xanax and alcohol dependence is seeking admission to detox. Patient has been in multiple inpatient detox and was last admitted for the period - 02/28/2019 here at [facility]. He reports insignificant period of sobriety. He has medical history of Hep. C, melanoma on the left shoulder and psych. history of depression and anxiety. He reports that he overdosed in 2019 (unable to remember the month) and has had intermittent blackouts. He denies suicidal ideation at this time. Patient reports that he relapsed a couple of days after detox in February 2019. Exam Limitations: No Limitations - Ebola screening Have you traveled outside of the country in the last 21 days: No Have you had contact with anyone from an Ebola affected area: No Do you have a fever: No - Review of Systems Constitutional: Chills, Malaise, Night Sweats, Changes in sleep EENT: reports: Nose Congestion Respiratory: reports: No Symptoms reported Cardiac: reports: No Symptoms Reported GI: reports: Diarrhea (x 2), Poor Fluid Intake, Vomiting (x 2), Abdominal cramping : reports: No Symptoms Reported Musculoskeletal: reports: Back Pain, Joint Pain, Muscle Pain Integumentary: reports: Dryness, Flushing Neuro: reports: Headache, Tremors Endocrine: reports: No Symptoms Reported Hematology: reports: No Symptoms Reported Psychiatric: reports: Mood/Affect Appropiate, Anxious, Depressed Other Systems: Reviewed and Negative Patient History - Patient Medical History Hx Anemia: No Hx Asthma: No Hx Chronic Obstructive Pulmonary Disease (COPD): No Hx Cancer: No Hx Cardiac Disorders: No Hx Congestive Heart Failure: No Hx Hypertension: No Hx Hypercholesterolemia: No Hx Pacemaker: No HX Cerebrovascular Accident: No Hx Seizures: No Hx Dementia: No Hx Diabetes: No Hx Gastrointestinal Disorders: No Hx Liver Disease: Yes (Hep. C) Hx Genitourinary Disorders: No Hx Sexually Transmitted Disorders: No Hx Renal Disease (ESRD): No Hx Thyroid Disease: No Hx Human Immunodeficiency Virus (HIV): No (Negative 2018) Hx Hepatitis C: Yes (treated in 2018 but didn't complete) Hx Depression: Yes (Not on medication) Hx Suicide Attempt: No (Denies suicidal ideation at this time) Hx Bipolar Disorder: No Hx Schizophrenia: No Other Medical History: Anxiety - Patient Surgical History Past Surgical History: Yes Hx Neurologic Surgery: No Hx Cataract Extraction: No Hx Cardiac Surgery: No Hx Lung Surgery: No Hx Breast Surgery: No Hx Breast Biopsy: No Hx Abdominal Surgery: No Hx Appendectomy: No Hx Cholecystectomy: No Hx Genitourinary Surgery: No Hx Section: No Hx Orthopedic Surgery: No Other Surgical History: left shoulder skin Melanoma [id number] Anesthesia Reaction: No - PPD History Previous Implant?: Yes Documented Results: Negative w/proof Implanted On Prior [facility] Admission?: Yes Date: 02/25/19 Results: NEGATIVE PPD to be Administered?: No - Reproductive History Patient is a Female of Child Bearing Age (11 -55 yrs old): No (male) - Smoking Cessation Smoking history: Current every day smoker Have you smoked in the past 12 months: Yes Aproximately how many cigarettes per day: 10 Cigars Per Day: 0 Hx Chewing Tobacco Use: No Initiated information on smoking cessation: Yes 'Breaking Loose' booklet given: 06/06/19 - Substance & Tx. History Hx Alcohol Use: Yes Hx Substance Use: Yes Substance Use Type: Alcohol, Cocaine, Heroin, Opiates Hx Substance Use Treatment: Yes ([facility]) - Substances abused Alprazolam (Xanax) Substance route: Oral Frequency: Daily Amount used: (2) 3mg/day Age of first use: 34 Date of last use: 12/04/18 Heroin Substance route: Inhalation Frequency: Daily Amount used: 4 BAGS Age of first use: 17 Date of last use: 06/06/19 Benzodiazepine (Klonopin) Substance route: Oral Frequency: 3-6 times per week Amount used: 2 PILLS Age of first use: 17 Date of last use: 06/03/19 Alcohol Substance route: Oral Frequency: 1-2 times per week Amount used: 2 six packs (12oz beers) Age of first use: 16 Date of last use: 06/05/19 Other Other (specify): Klonopin Substance route: Oral Frequency: 1-2 times per week Amount used: 2 pills Age of first use: 31 Date of last use: 06/02/19 Admission Physical Exam S - Vital Signs Vital Signs: Vital Signs - 24 hr 06/06/19 06/06/19 17:25 19:04 Temperature 97.0 F L 97.0 F L Pulse Rate 75 75 Respiratory 16 16 Rate Blood Pressure 118/61 118/61 - Physical General Appearance: Yes: Moderate Distress, Tremorous, Sweating, Anxious HEENTM: Yes: Within Normal Limits Respiratory: Yes: Lungs Clear, Normal Breath Sounds, No Respiratory Distress Neck: Yes: Supple Breast: Yes: Breast Exam Deferred Cardiology: Yes: Regular Rhythm, Regular Rate Abdominal: Yes: Normal Bowel Sounds, Soft Genitourinary: Yes: Within Normal Limits Back: Yes: Normal Inspection Musculoskeletal: Yes: Back pain, Muscle Pain Extremities: Yes: Tremors Neurological: Yes: Within Normal Limits, Alert, Normal Mood/Affect Integumentary: Yes: Warm, Track [place] (bilateral hands) Lymphatic: Yes: Within Normal Limits - Diagnostic (1) Alcohol dependence with withdrawal Current Visit: Yes Status: Acute (2) Opioid dependence with withdrawal Current Visit: Yes Status: Acute (3) Sedative, hypnotic or anxiolytic dependence with withdrawal, uncomplicated Current Visit: Yes Status: Acute (4) Anxiety Current Visit: Yes Status: Chronic (5) Depression (emotion) Current Visit: Yes Status: Chronic Qualifiers: Depression Type: unspecified Qualified Code(s): F32.9 - Major depressive disorder, single episode, unspecified (6) Hepatitis C Current Visit: Yes Status: Chronic Qualifiers: Viral hepatitis chronicity: chronic Hepatic coma status: without hepatic coma Qualified Code(s): B18.2 - Chronic viral hepatitis C (7) Nicotine dependence Current Visit: Yes Status: Chronic Qualifiers: Nicotine product type: cigarettes Substance use status: in withdrawal Qualified Code(s): F17.213 - Nicotine dependence, cigarettes, with withdrawal Cleared for Admission [facility] - Detox or Rehab [facility] Level of Care: Medically Managed Detox Regimen/Protocol: Methadone/Valium Claeared for Rehab Admission: No Breathalyzer - Breathalyzer Breathalyzer: 0 Urine Drug Screen - Test Device Lot number: [id number] Expiration date: 12/26/20 - Control Is test valid?: Yes - Results Drug screen NEGATIVE: No Urine drug screen results: FEN-Fentanyl, MOP-Opiates, MTD-Methadone, BZO- Benzodiazepines Inpatient Rehab Admission - Rehab Decision to Admit Inpatient rehab admission?: No
[2019-06-06] MEDS ORDERED: MAGNESIUM CITRATE 300 ML BOTTLE PO PRN (20:16)
[2019-06-06] MEDS ORDERED: cloNIDine HCL 0.1 MG TABLET PO PRN (20:16)
[2019-06-06] MEDS ORDERED: ACETAMINOPHEN 325 MG TABLET (FP) PO PRN ×2 (20:16)
[2019-06-06] MEDS ORDERED: METHOCARBAMOL 500 MG TABLET PO PRN (20:16)
[2019-06-06] MEDS ORDERED: MENTHOL/PHENOL 1 EACH UD MM PRN (20:16)
[2019-06-06] MEDS ORDERED: IBUPROFEN 400 MG TABLET (FP) PO PRN (20:16)
[2019-06-06] MEDS ORDERED: BISMUTH SUBSALICYLATE 524 MG/30 ML UD PO PRN (20:16)
[2019-06-06] MEDS ORDERED: NICOTINE POLACRILEX 2 MG GUM BUC PRN (20:16)
[2019-06-06] MEDS ORDERED: MAG HYDROX/AL HYDROX/SIMETH 30 ML UNIT-DOSE CUP PO PRN (20:16)
[2019-06-06] MEDS ORDERED: METHADONE HCL 10 MG TABLET (FOR DETOX USE ONLY) PO ONE (20:16)
[2019-06-06] MEDS ORDERED: MAGNESIUM HYDROX 2400MG/30ML ORAL SUSPENSION 30 ML CUP PO PRN (20:16)
[2019-06-06] MEDS: THIAMINE HCL 100 MG TABLET (FP) PO SCH (21:12)
[2019-06-06] MEDS: diazePAM 5 MG TABLET PO SCH (21:12)
[2019-06-07] MEDS: diazePAM 5 MG TABLET PO SCH ×3 (06:27→22:20)
[2019-06-07] MEDS ORDERED: METHADONE HCL 10 MG TABLET (FOR DETOX USE ONLY) ONE (09:10)
[2019-06-07] MEDS ORDERED: METHADONE HCL 5 MG TABLET (FOR DETOX USE ONLY) ONE (09:10)
--- NOTE | 2019-06-07 09:49 | PN ---
S CIWA - CIWA Score Nausea/Vomitin-Mild Nausea/No Vomiting Muscle Tremors: 3 Anxiety: 3 Agitation: 2 Paroxysmal Sweats: 2 Orientation: 1-Uncertain about Date Tacttile Disturbances: 1-Very Mild Itch/Numbness Auditory Disturbances: 0-None Visual Disturbances: 0-None Headache: 2-Mild CIWA-Ar Total Score: 15 [facility] COWS - Scale Resting Pulse: 0= [place] 80 or Below Sweatin= Chills/Flushing Restless Observation: 0= Sits Still Pupil Size: 1= Pupils >than Normal Bone or Joint Aches: 2= Severe Diffuse Aches Runny Nose/ Eye Tearin= Nasal Congestion GI Upset > 30mins: 2= Nausea/Diarrhea Tremor Observation of Outstretched Hands: 2= Slight Tremor Visible Yawning Observation: 0= None Anxiety or Irritability: 2=Irritable/Anxious Goose Flesh Skin: 3=[place] COWS Score: 14 [facility] Progress Note (SOAP) Subjective: 49 years old male admitted on 06/06/19 for alcohol benzo opiate withdrawal sx management treating with valium and methadone detox regimen ate breakfast resting in bed prefers to stay in bed today encourage to attend behavior and psychosocial therapies groups and meetings while in detox unit Objective: 06/07/19 09:47 Vital Signs Temperature 97.0 F L 06/07/19 09:20 Pulse Rate 62 06/07/19 09:20 Respiratory Rate 18 06/07/19 09:20 Blood Pressure 97/52 L 06/07/19 09:20 O2 Sat by Pulse Oximetry (%) 06/07/19 09:48 lab pending Assessment: 06/07/19 09:48 alcohol benzo opiate withdrawal Plan: valium and methadone regimens
[2019-06-07] MEDS ORDERED: METHADONE (DETOX) 20 MG, METHADONE (DETOX) 5 MG PO ONE (10:00)
[2019-06-07] MEDS: PRENATAL VITAMINS W/ FOLIC ACID TABLET (FP) PO SCH (10:22)
[2019-06-07] MEDS: NICOTINE 21 MG/24 HOURS TOPICAL PATCH TD SCH (10:23)
[2019-06-07 10:51] LABS: HEMATOCRIT 42.8 % (35.4-49); MCH 30.5 pg (25.7-33.7); MCHC 32.8 g/dl (32.0-35.9); MEAN CELL VOLUME 93.2 fl (80-96); MEAN PLT VOLUME 9.2 fl (7.5-11.1); PLATELET COUNT 210 K/MM3 (134-434); RBC 4.59 M/mm3 (4.00-5.60); RDW 13.2 % (11.9-15.9); WHITE BLOOD COUNT 7.3 K/mm3 (4.0-10.0)
[2019-06-07 10:58] LABS: ALBUMIN 3.4 g/dl (3.4-5.0); BILIRUBIN,TOTAL 0.2 mg/dL (0.2-1); BLOOD UREA NITROGEN 17.7 mg/dL (7-18); CALCIUM 8.9 mg/dL (8.5-10.1); CREATININE 0.9 mg/dL (0.55-1.3); POTASSIUM 3.9 mmol/L (3.5-5.1); TOT PROT 6.3 g/dl (6.4-8.2)
--- NOTE | 2019-06-07 11:53 | EKG ---
Test Reason : Blood Pressure : / mmHG Vent. Rate : 062 BPM Atrial Rate : 062 BPM P-R Int : 120 ms QRS Dur : 096 ms QT Int : 444 ms P-R-T Axes : 011 084 069 degrees QTc Int : 450 ms NORMAL SINUS RHYTHM NORMAL ECG WHEN COMPARED WITH ECG OF 23-FEB-2019 21:42, NO SIGNIFICANT CHANGE WAS FOUND Confirmed by ARIANNA DICKERSON MD ([id number]) on 06/07/2019 11:52:55 AM Referred By: Confirmed By:ARIANNA DICKERSON MD
--- NOTE | 2019-06-07 14:37 | CONSULT ---
[facility] Psychiatric Consult - Data Date of interview: 06/07/19 Admission source: [facility] Identifying data: [employer] T[employer] approached patient for psychiatric consultation. Patient stated, " i don't need to see you. I'm fine. Psychiatric consultation refused.
[2019-06-07] MEDS: THIAMINE HCL 100 MG TABLET (FP) PO SCH (22:20)
[2019-06-07] MEDS: MELATONIN 5 MG TABLETS PO PRN (22:21)
[2019-06-08] MEDS: diazePAM 5 MG TABLET PO SCH ×2 (07:48→17:08)
--- NOTE | 2019-06-08 09:53 | PN ---
S CIWA - CIWA Score Nausea/Vomitin Muscle Tremors: 3 Anxiety: 3 Agitation: 3 Paroxysmal Sweats: 2 Orientation: 0-Oriented Tacttile Disturbances: 0-None Auditory Disturbances: 0-None Visual Disturbances: 0-None Headache: 2-Mild CIWA-Ar Total Score: 15 BHS COWS - Scale Resting Pulse: 1= [place] 81-100 Sweatin= Chills/Flushing Restless Observation: 1= Difficult to Sit Still Pupil Size: 0= Normal to Room Light Bone or Joint Aches: 1= Mild Discomfort Runny Nose/ Eye Tearin= Nasal Congestion GI Upset > 30mins: 1= Stomach Cramp Tremor Observation of Outstretched Hands: 1= Tremor [place], Not Seen Yawning Observation: 1= 1-2x During Session Anxiety or Irritability: 1=Feels Anxious/Irritable Goose Flesh Skin: 0=Smooth Skin COWS Score: 9 S Progress Note (SOAP) Subjective: Pt states feeling OK today. O: Vital Signs - 24 hr 06/07/19 06/07/19 06/07/19 13:15 17:45 22:31 Temperature 98.3 F 96 F L 95.8 F L Pulse Rate 61 67 63 Respiratory 18 16 18 Rate Blood Pressure 115/71 116/67 120/77 06/08/19 06/08/19 06/08/19 00:25 03:30 05:49 Temperature 97.9 F Pulse Rate 60 Respiratory 18 18 18 Rate Blood Pressure 110/60 06/08/19 09:10 Temperature 98.3 F Pulse Rate 65 Respiratory 18 Rate Blood Pressure 110/58 L Laboratory Tests 06/07/19 06/07/19 06/07/19 08:15 08:15 08:15 WBC 7.3 RBC 4.59 Hgb 14.0 Hct 42.8 MCV 93.2 MCH 30.5 MCHC 32.8 RDW 13.2 Plt Count 210 MPV 9.2 Sodium 143 Potassium 3.9 Chloride 109 H Carbon Dioxide 29 Anion Gap 5 L BUN 17.7 Creatinine 0.9 Est GFR (CKD-EPI)AfAm 115.02 Est GFR (CKD-EPI)NonAf 99.24 Random Glucose 99 Calcium 8.9 Total Bilirubin 0.2 AST 13 L ALT 19 Alkaline Phosphatase 87 Total Protein 6.3 L Albumin 3.4 RPR Titer Nonreactive labs and VS WNL a/p: Here for Heroin, alcohol and Xanax withdrawal Pt stable, d/w pt [facility] treatment with [facility]- pt refused, considering rehab
[2019-06-08] MEDS ORDERED: METHADONE HCL 10 MG TABLET (FOR DETOX USE ONLY) PO ONE (10:00)
[2019-06-08] MEDS: PRENATAL VITAMINS W/ FOLIC ACID TABLET (FP) PO SCH (10:24)
[2019-06-08] MEDS: diazePAM 5 MG TABLET PO PRN ×2 (10:24→22:14)
[2019-06-08] MEDS: NICOTINE 21 MG/24 HOURS TOPICAL PATCH TD SCH (10:25)
[2019-06-08] MEDS: MELATONIN 5 MG TABLETS PO PRN (22:12)
[2019-06-08] MEDS: THIAMINE HCL 100 MG TABLET (FP) PO SCH (22:12)
[2019-06-09] MEDS ORDERED: diazePAM 5 MG TABLET PO ONE (06:00)
[2019-06-09] MEDS ORDERED: METHADONE HCL 10 MG TABLET (FOR DETOX USE ONLY) ONE (08:52)
[2019-06-09] MEDS ORDERED: METHADONE HCL 5 MG TABLET (FOR DETOX USE ONLY) ONE (08:52)
[2019-06-09] MEDS ORDERED: METHADONE (DETOX) 10 MG, METHADONE (DETOX) 5 MG PO ONE (10:00)
--- NOTE | 2019-06-09 10:10 | PN ---
[facility] CIWA - CIWA Score Nausea/Vomitin-No Nausea/No Vomiting Muscle Tremors: 2 Anxiety: 3 Agitation: 0-Normal Activity Paroxysmal Sweats: 3 Orientation: 0-Oriented Tacttile Disturbances: 0-None Auditory Disturbances: 0-None Visual Disturbances: 0-None Headache: 1-Very Mild CIWA-Ar Total Score: 9 BHS COWS - Scale Resting Pulse: 0= [place] 80 or Below Sweatin= Chills/Flushing Restless Observation: 1= Difficult to Sit Still Pupil Size: 0= Normal to Room Light Bone or Joint Aches: 2= Severe Diffuse Aches Runny Nose/ Eye Tearin= None GI Upset > 30mins: 0= None Tremor Observation of Outstretched Hands: 2= Slight Tremor Visible Yawning Observation: 1= 1-2x During Session Anxiety or Irritability: 2=Irritable/Anxious Goose Flesh Skin: 0=Smooth Skin COWS Score: 9 [facility] Progress Note (SOAP) Subjective: c/o sweats, shakes, headache, muscle aches, and anxiety. Objective: 06/09/19 10:10 Vital Signs 06/09/19 06/09/19 06/09/19 03:30 06:35 09:24 Temperature 97.5 F L 97.7 F Pulse Rate 61 63 Respiratory 18 18 18 Rate Blood Pressure 105/54 L 101/51 L Lab Results WBC 7.3 K/mm3 (4.0-10.0) 06/07/19 08:15 RBC 4.59 M/mm3 (4.00-5.60) 06/07/19 08:15 Hgb 14.0 GM/dL (11.7-16.9) 06/07/19 08:15 Hct 42.8 % (35.4-49) 06/07/19 08:15 MCV 93.2 fl (80-96) 06/07/19 08:15 MCHC 32.8 g/dl (32.0-35.9) 06/07/19 08:15 RDW 13.2 % (11.9-15.9) 06/07/19 08:15 Plt Count 210 K/MM3 (134-434) 06/07/19 08:15 Sodium 143 mmol/L (136-145) 06/07/19 08:15 Potassium 3.9 mmol/L (3.5-5.1) 06/07/19 08:15 Chloride 109 mmol/L (98-107) H 06/07/19 08:15 Carbon Dioxide 29 mmol/L (21-32) 06/07/19 08:15 Anion Gap 5 MMOL/L (8-16) L 06/07/19 08:15 BUN 17.7 mg/dL (7-18) 06/07/19 08:15 Creatinine 0.9 mg/dL (0.55-1.3) 06/07/19 08:15 Random Glucose 99 mg/dL (74-106) 06/07/19 08:15 Calcium 8.9 mg/dL (8.5-10.1) 06/07/19 08:15 labs noted. Assessment: 06/09/19 10:10 AOX3, in no acute respiratory distress. Full ROM, ambulating in the unit. Withdrawal symptoms. Plan: continue detox. Increase fluids.
[2019-06-09] MEDS: diazePAM 5 MG TABLET PO PRN (10:38)
[2019-06-09] MEDS: PRENATAL VITAMINS W/ FOLIC ACID TABLET (FP) PO SCH (10:38)
[2019-06-09] MEDS: NICOTINE 21 MG/24 HOURS TOPICAL PATCH TD SCH (10:38)
[2019-06-09] MEDS: MELATONIN 5 MG TABLETS PO PRN (22:07)
[2019-06-09] MEDS: THIAMINE HCL 100 MG TABLET (FP) PO SCH (22:07)
[2019-06-10] MEDS ORDERED: METHADONE HCL 10 MG TABLET (FOR DETOX USE ONLY) PO ONE (10:00)
[2019-06-10] MEDS: PRENATAL VITAMINS W/ FOLIC ACID TABLET (FP) PO SCH (10:28)
[2019-06-10] MEDS: NICOTINE 21 MG/24 HOURS TOPICAL PATCH TD SCH (10:28)
--- NOTE | 2019-06-10 14:23 | PN ---
S CIWA - CIWA Score Nausea/Vomitin-No Nausea/No Vomiting Muscle Tremors: 1-None Visible, but [place] Anxiety: 1-Mildly Anxious Agitation: 1-Slight > Activity Paroxysmal Sweats: 1-Minimal [place] Moist Orientation: 0-Oriented Tacttile Disturbances: 0-None Auditory Disturbances: 0-None Visual Disturbances: 0-None Headache: 1-Very Mild CIWA-Ar Total Score: 5 BHS COWS - Scale Resting Pulse: 0= [place] 80 or Below Sweatin= Chills/Flushing Restless Observation: 0= Sits Still Pupil Size: 0= Normal to Room Light Bone or Joint Aches: 1= Mild Discomfort Runny Nose/ Eye Tearin= None GI Upset > 30mins: 1= Stomach Cramp Tremor Observation of Outstretched Hands: 1= Tremor [place], Not Seen Yawning Observation: 0= None Anxiety or Irritability: 1=Feels Anxious/Irritable Goose Flesh Skin: 0=Smooth Skin COWS Score: 5 S Progress Note (SOAP) Subjective: 49 years old male admitted on 06/06/19 for alcohol benzo opiate withdrawal management treating with valium and methadone detox regimen feeling better today ate breakfast and lunch slept through the night Objective: 06/10/19 14:27 Vital Signs Temperature 98.1 F 06/10/19 13:33 Pulse Rate 61 06/10/19 13:33 Respiratory Rate 18 06/10/19 13:33 Blood Pressure 121/66 06/10/19 13:33 O2 Sat by Pulse Oximetry (%) Laboratory Last Values WBC 7.3 K/mm3 (4.0-10.0) 06/07/19 08:15 RBC 4.59 M/mm3 (4.00-5.60) 06/07/19 08:15 Hgb 14.0 GM/dL (11.7-16.9) 06/07/19 08:15 Hct 42.8 % (35.4-49) 06/07/19 08:15 MCV 93.2 fl (80-96) 06/07/19 08:15 MCH 30.5 pg (25.7-33.7) 06/07/19 08:15 MCHC 32.8 g/dl (32.0-35.9) 06/07/19 08:15 RDW 13.2 % (11.9-15.9) 06/07/19 08:15 Plt Count 210 K/MM3 (134-434) 06/07/19 08:15 MPV 9.2 fl (7.5-11.1) 06/07/19 08:15 Sodium 143 mmol/L (136-145) 06/07/19 08:15 Potassium 3.9 mmol/L (3.5-5.1) 06/07/19 08:15 Chloride 109 mmol/L (98-107) H 06/07/19 08:15 Carbon Dioxide 29 mmol/L (21-32) 06/07/19 08:15 Anion Gap 5 MMOL/L (8-16) L 06/07/19 08:15 BUN 17.7 mg/dL (7-18) 06/07/19 08:15 Creatinine 0.9 mg/dL (0.55-1.3) 06/07/19 08:15 Est GFR (CKD-EPI)AfAm 115.02 06/07/19 08:15 Est GFR (CKD-EPI)NonAf 99.24 06/07/19 08:15 Random Glucose 99 mg/dL (74-106) 06/07/19 08:15 Calcium 8.9 mg/dL (8.5-10.1) 06/07/19 08:15 Total Bilirubin 0.2 mg/dL (0.2-1) 06/07/19 08:15 AST 13 U/L (15-37) L 06/07/19 08:15 ALT 19 U/L (13-61) 06/07/19 08:15 Alkaline Phosphatase 87 U/L (45-117) 06/07/19 08:15 Total Protein 6.3 g/dl (6.4-8.2) L 06/07/19 08:15 Albumin 3.4 g/dl (3.4-5.0) 06/07/19 08:15 RPR Titer Nonreactive (NONREACTIVE) 06/07/19 08:15 lab noted Assessment: 06/10/19 14:27 alcohol benzo opiate withdrawal Plan: valium and methadone regimens
[2019-06-10] MEDS: THIAMINE HCL 100 MG TABLET (FP) PO SCH (22:06)
[2019-06-10] MEDS: MELATONIN 5 MG TABLETS PO PRN (22:06)
[2019-06-11] MEDS ORDERED: METHADONE HCL 5 MG TABLET (FOR DETOX USE ONLY) PO ONE (06:00)
[2019-06-11 09:13] VITALS: BP 133/70; PULSE 69; TEMP 96.8
--- NOTE | 2019-06-11 09:17 | DS ---
[facility] Detox Discharge Summary Admission Date: 06/06/19 Discharge Date: 06/11/19 - History Present History: Alcohol Dependence, Opioid Dependence, Sedative Dependence Additional Comments: 49 years old male admitted on 06/06/19 for alcohol benzo opiate withdrawal sx management treated with valium and methadone detox regimens completed the regimens and tolerated well alert oriented x 3 cardiac s1s2 regular rate rhythm respiratory clear lungs bilaterally on auscultation skin warm and dry - Physical Exam Results Vital Signs: Vital Signs Temperature 96.8 F L 06/11/19 09:13 Pulse Rate 69 06/11/19 09:13 Respiratory Rate 19 06/11/19 09:13 Blood Pressure 133/70 06/11/19 09:13 O2 Sat by Pulse Oximetry (%) Pertinent Admission Physical Exam Findings: alcohol benzo opiate withdrawal Laboratory Last Values WBC 7.3 K/mm3 (4.0-10.0) 06/07/19 08:15 RBC 4.59 M/mm3 (4.00-5.60) 06/07/19 08:15 Hgb 14.0 GM/dL (11.7-16.9) 06/07/19 08:15 Hct 42.8 % (35.4-49) 06/07/19 08:15 MCV 93.2 fl (80-96) 06/07/19 08:15 MCH 30.5 pg (25.7-33.7) 06/07/19 08:15 MCHC 32.8 g/dl (32.0-35.9) 06/07/19 08:15 RDW 13.2 % (11.9-15.9) 06/07/19 08:15 Plt Count 210 K/MM3 (134-434) 06/07/19 08:15 MPV 9.2 fl (7.5-11.1) 06/07/19 08:15 Sodium 143 mmol/L (136-145) 06/07/19 08:15 Potassium 3.9 mmol/L (3.5-5.1) 06/07/19 08:15 Chloride 109 mmol/L (98-107) H 06/07/19 08:15 Carbon Dioxide 29 mmol/L (21-32) 06/07/19 08:15 Anion Gap 5 MMOL/L (8-16) L 06/07/19 08:15 BUN 17.7 mg/dL (7-18) 06/07/19 08:15 Creatinine 0.9 mg/dL (0.55-1.3) 06/07/19 08:15 Est GFR (CKD-EPI)AfAm 115.02 06/07/19 08:15 Est GFR (CKD-EPI)NonAf 99.24 06/07/19 08:15 Random Glucose 99 mg/dL (74-106) 06/07/19 08:15 Calcium 8.9 mg/dL (8.5-10.1) 06/07/19 08:15 Total Bilirubin 0.2 mg/dL (0.2-1) 06/07/19 08:15 AST 13 U/L (15-37) L 06/07/19 08:15 ALT 19 U/L (13-61) 06/07/19 08:15 Alkaline Phosphatase 87 U/L (45-117) 06/07/19 08:15 Total Protein 6.3 g/dl (6.4-8.2) L 06/07/19 08:15 Albumin 3.4 g/dl (3.4-5.0) 06/07/19 08:15 RPR Titer Nonreactive (NONREACTIVE) 06/07/19 08:15 lab noted - Treatment Hospital Course: Detox Protocol Followed, Detoxed Safely, Responded well, Discharged Condition Good, Rehab Referral Accepted Patient has Accepted a Rehab Referral to: community support approach - Medication Discharge Medications: Ambulatory Orders Naloxone HCl [Narcan] 4 mg NS ASDIR PRN #1 spray 06/07/19 - Diagnosis (1) Alcohol dependence with withdrawal Status: Acute Qualifiers: Complication of substance-induced condition: uncomplicated Qualified Code(s ): F10.230 - Alcohol dependence with withdrawal, uncomplicated (2) Benzodiazepine dependence Status: Acute (3) Opioid dependence with withdrawal Status: Acute (4) Sedative, hypnotic or anxiolytic dependence with withdrawal, uncomplicated Status: Acute (5) Weight loss Status: Acute (6) Hepatitis C Status: Chronic Qualifiers: Viral hepatitis chronicity: chronic Hepatic coma status: without hepatic coma Qualified Code(s): B18.2 - Chronic viral hepatitis C (7) Nicotine dependence Status: Acute Qualifiers: Nicotine product type: cigarettes Substance use status: in withdrawal Qualified Code(s): F17.213 - Nicotine dependence, cigarettes, with withdrawal (8) Substance induced mood disorder Status: Suspected - AMA Did Patient Leave Against Medical Advice: No CIWA Score - CIWA Score Nausea/Vomitin-No Nausea/No Vomiting Muscle Tremors: 1-None Visible, but [place] Anxiety: 1-Mildly Anxious Agitation: 0-Normal Activity Paroxysmal Sweats: No Perspiration Orientation: 0-Oriented Tacttile Disturbances: 0-None Auditory Disturbances: 0-None Visual Disturbances: 0-None Headache: 0-None Present CIWA-Ar Total Score: 2 COWS (PN) - Opiate Withdrawal Resting Pulse: 0= [place] 80 or Below Sweatin= Chills/Flushing Restless Observation: 0= Sits Still Pupil Size: 0= Normal to Room Light Bone or Joint Aches: 0= None Runny Nose/ Eye Tearin= None GI Upset > 30mins: 0= None Tremor Observation of Outstretched Hands: 1= Tremor [place], Not Seen Yawning Observation: 0= None Anxiety or Irritability: 0= None Goose Flesh Skin: 0=Smooth Skin COWS Score: 2
[2019-06-11] MEDS: PRENATAL VITAMINS W/ FOLIC ACID TABLET (FP) PO SCH (10:09)
[2019-06-11] MEDS: NICOTINE 21 MG/24 HOURS TOPICAL PATCH TD SCH (10:10)
== END 2019-06-11 12:50 | disposition home or self-care (01) | DRG 773 ==
LOC: YASAS 13:47 → Y3N 20:45
PROVIDERS: ADMIT Allergy & Immunology; ATTEND Allergy & Immunology
PROC: HZ2ZZZZ Detoxification Services for Substance Abuse Treatment (ICD-10-PCS; principal; 2019-06-06)
DX: F11.23 Opioid dependence with withdrawal (principal); F10.230 Alcohol dependence with withdrawal, uncomplicated; F13.230 Sedative, hypnotic or anxiolytic dependence with withdrawal, uncomplicated; F17.213 Nicotine dependence, cigarettes, with withdrawal; F19.24 Other psychoactive substance dependence with psychoactive substance-induced mood disorder; F41.9 Anxiety disorder, unspecified; F32.9 Major depressive disorder, single episode, unspecified; B18.2 Chronic viral hepatitis C; R63.4 Abnormal weight loss
CPT/HCPCS: 36415; 80053; 85027; 86593; 93005; 93010

== ENCOUNTER 2023-04-28 14:12 | Inpatient (IN) | payer OTHER ==
[2023-04-28 14:46] VITALS: BMI 19.2
[2023-04-28] MEDS ORDERED: cloNIDine HCL 0.1 MG TABLET PO PRN (16:08)
[2023-04-28] MEDS ORDERED: BISMUTH SUBSALICYLATE 524 MG/30 ML PO PRN (16:08)
[2023-04-28] MEDS ORDERED: NALOXONE HCL (KLOXXADO) 8 MG SPRAY NS PRN (16:08)
[2023-04-28] MEDS ORDERED: POLYETHYLENE GLYCOL (HEALTHYLAX) 3350 17 GM PACKET PO PRN (16:08)
[2023-04-28] MEDS ORDERED: BENZONATATE 200 MG CAPSULE PO PRN (16:08)
[2023-04-28] MEDS ORDERED: MAG HYDROX/AL HYDROX/SIMETH 30 ML UNIT-DOSE CUP PO PRN (16:08)
[2023-04-28] MEDS ORDERED: MAGNESIUM HYDROX 2400MG/30ML ORAL SUSPENSION 30 ML CUP PO PRN (16:08)
[2023-04-28] MEDS ORDERED: DICYCLOMINE HCL 10 MG CAPSULE PO PRN (16:08)
[2023-04-28] MEDS ORDERED: IBUPROFEN 600 MG TABLET (FP) PO PRN (16:08)
[2023-04-28] MEDS ORDERED: LOPERAMIDE HCL 2 MG CAPSULE PO PRN (16:08)
[2023-04-28] MEDS ORDERED: guaiFENesin 600 MG TABLET.ER (FP) PO PRN (16:08)
[2023-04-28] MEDS ORDERED: IBUPROFEN 400 MG TABLET (FP) PO PRN (16:08)
[2023-04-28] MEDS ORDERED: METHOCARBAMOL 500 MG TABLET PO PRN (16:08)
[2023-04-28] MEDS ORDERED: NALOXONE HCL 0.4 MG/ML VIAL IM PRN (16:08)
[2023-04-28] MEDS ORDERED: BENZOCAINE/MENTHOL (CHLORASEPTIC ) LOZENGE MM PRN (16:08)
[2023-04-28] MEDS ORDERED: diazePAM 5 MG TABLET PO PRN (16:08)
[2023-04-28] MEDS ORDERED: ACETAMINOPHEN 325 MG TABLET (FP) PO PRN (16:08)
[2023-04-28] MEDS ORDERED: ONDANSETRON *ODT* 4 MG TABLET SL PRN (16:08)
[2023-04-28] MEDS ORDERED: methaDONE HCL 10 MG TABLET (FOR DETOX USE ONLY) PO ONE (16:08)
[2023-04-28] MEDS ORDERED: hydrOXYzine PAMOATE 25 MG CAPSULE (FP) PO PRN (16:08)
[2023-04-28] MEDS ORDERED: methaDONE HCL 10 MG TABLET (FOR DETOX USE ONLY) ONE (18:11)
[2023-04-28] MEDS: NICOTINE 14 MG/24 HOURS TOPICAL PATCH TD SCH (18:35)
[2023-04-28] MEDS: PRENATAL VITAMINS W/ FOLIC ACID TABLET (FP) PO SCH (18:35)
[2023-04-28] MEDS: MELATONIN 5 MG TABLETS PO SCH (22:20)
[2023-04-28] MEDS: diazePAM 5 MG TABLET PO SCH (22:20)
[2023-04-28] MEDS: THIAMINE HCL 100 MG TABLET (FP) PO SCH (22:20)
[2023-04-29] MEDS: diazePAM 5 MG TABLET PO SCH ×4 (05:43→22:33)
[2023-04-29] MEDS: PRENATAL VITAMINS W/ FOLIC ACID TABLET (FP) PO SCH (10:29)
[2023-04-29] MEDS: NICOTINE 14 MG/24 HOURS TOPICAL PATCH TD SCH (10:30)
[2023-04-29 10:51] LABS: CHLORIDE 105 mmol/L (98-107); POTASSIUM 4.3 mmol/L (3.5-5.1); SODIUM 142 mmol/L (136-145)
[2023-04-29 11:04] LABS: HEMATOCRIT 38.8 % (35.4-49); HEMOGLOBIN 12.8 GM/dL (11.7-16.9); MCH 30.3 pg (25.7-33.7); MCHC 32.9 g/dl (32.0-35.9); MEAN CELL VOLUME 92.2 fl (80-96); MEAN PLT VOLUME 9.4 fl (7.5-11.1); PLATELET COUNT 174 10^3/uL (134-434); RBC 4.21 M/mm3 (4.00-5.60); WHITE BLOOD COUNT 6.9 K/mm3 (4.0-10.0)
[2023-04-29 11:09] LABS: CALCIUM 8.6 mg/dL (8.5-10.1)
[2023-04-29 11:10] LABS: ALBUMIN 3.5 g/dl (3.4-5.0); ANION GAP 5 mmol/L (4-13); BLOOD UREA NITROGEN 17.2 mg/dL (7-18); CO2 32 mmol/L (21-32); GLUCOSE,RANDOM 122 mg/dL (74-106)
[2023-04-29 11:13] LABS: SGOT/AST 16 U/L (15-37); SGPT/ALT 21 U/L (13-61)
[2023-04-29 11:14] LABS: BILIRUBIN,TOTAL 0.4 mg/dL (0.2-1)
[2023-04-29 11:16] LABS: ALK PHOS 92 U/L (45-117)
[2023-04-29] MEDS: MELATONIN 5 MG TABLETS PO SCH (22:33)
[2023-04-29] MEDS: THIAMINE HCL 100 MG TABLET (FP) PO SCH (22:33)
[2023-04-30] MEDS: diazePAM 5 MG TABLET PO SCH ×2 (06:07→13:52)
[2023-04-30 09:03] VITALS: BP 112/64; PULSE 61; RESP 16; TEMP 97.7
[2023-04-30] MEDS ORDERED: methaDONE HCL 10 MG TABLET (FOR DETOX USE ONLY) PO ONE (10:00)
[2023-04-30] MEDS: PRENATAL VITAMINS W/ FOLIC ACID TABLET (FP) PO SCH (10:19)
[2023-04-30] MEDS: NICOTINE 14 MG/24 HOURS TOPICAL PATCH TD SCH (10:19)
[2023-05-01] MEDS ORDERED: diazePAM 5 MG TABLET PO SCH (06:00)
[2023-05-02] MEDS ORDERED: diazePAM 5 MG TABLET PO ONE (06:00)
[2023-05-02] MEDS ORDERED: methaDONE HCL 10 MG TABLET (FOR DETOX USE ONLY) PO ONE (10:00)
== END 2023-04-30 12:17 | disposition left against medical advice (07) | DRG 770 ==
LOC: YASAS 14:12 → Y3N 17:42
PROVIDERS: ADMIT Allergy & Immunology; ATTEND Surgery
PROC: HZ2ZZZZ Detoxification Services for Substance Abuse Treatment (ICD-10-PCS; principal; 2023-04-28)
DX: F11.23 Opioid dependence with withdrawal (principal); F10.230 Alcohol dependence with withdrawal, uncomplicated; F17.210 Nicotine dependence, cigarettes, uncomplicated; F34.1 Dysthymic disorder; G47.00 Insomnia, unspecified; R63.4 Abnormal weight loss; Z68.1 Body mass index [BMI] 19.9 or less, adult; Z86.59 Personal history of other mental and behavioral disorders; Z86.19 Personal history of other infectious and parasitic diseases
CPT/HCPCS: 36415; 80053; 80307; 82140; 85027; 86780; 87635; 93005; 93010

== ENCOUNTER 2023-07-26 13:10 | Inpatient (IN) | payer OTHER ==
[2023-07-26 14:29] VITALS: BMI 21.2
[2023-07-26] MEDS ORDERED: LOPERAMIDE HCL 2 MG CAPSULE PO PRN (15:29)
[2023-07-26] MEDS ORDERED: NALOXONE HCL 0.4 MG/ML VIAL IM PRN (15:29)
[2023-07-26] MEDS ORDERED: BENZONATATE 200 MG CAPSULE PO PRN (15:29)
[2023-07-26] MEDS ORDERED: IBUPROFEN 400 MG TABLET (FP) PO PRN (15:29)
[2023-07-26] MEDS ORDERED: DICYCLOMINE HCL 10 MG CAPSULE PO PRN (15:29)
[2023-07-26] MEDS ORDERED: BISMUTH SUBSALICYLATE 524 MG/30 ML PO PRN (15:29)
[2023-07-26] MEDS ORDERED: MAGNESIUM HYDROX 2400MG/30ML ORAL SUSPENSION 30 ML CUP PO PRN (15:29)
[2023-07-26] MEDS ORDERED: BENZOCAINE/MENTHOL (CHLORASEPTIC ) LOZENGE MM PRN (15:29)
[2023-07-26] MEDS ORDERED: diazePAM 5 MG TABLET PO PRN (15:29)
[2023-07-26] MEDS ORDERED: ACETAMINOPHEN 325 MG TABLET (FP) PO PRN (15:29)
[2023-07-26] MEDS ORDERED: hydrOXYzine PAMOATE 25 MG CAPSULE (FP) PO PRN (15:29)
[2023-07-26] MEDS ORDERED: ONDANSETRON *ODT* 4 MG TABLET SL PRN (15:29)
[2023-07-26] MEDS ORDERED: NALOXONE HCL (KLOXXADO) 8 MG SPRAY NS PRN (15:29)
[2023-07-26] MEDS ORDERED: cloNIDine HCL 0.1 MG TABLET PO PRN (15:29)
[2023-07-26] MEDS ORDERED: MAG HYDROX/AL HYDROX/SIMETH 30 ML UNIT-DOSE CUP PO PRN (15:29)
[2023-07-26] MEDS ORDERED: guaiFENesin 600 MG TABLET.ER (FP) PO PRN (15:29)
[2023-07-26] MEDS ORDERED: POLYETHYLENE GLYCOL (HEALTHYLAX) 3350 17 GM PACKET PO PRN (15:29)
[2023-07-26] MEDS ORDERED: IBUPROFEN 600 MG TABLET (FP) PO PRN (15:29)
[2023-07-26] MEDS ORDERED: methaDONE HCL 10 MG TABLET (FOR DETOX USE ONLY) ONE (17:14)
[2023-07-26] MEDS: methaDONE HCL 10 MG TABLET (FOR DETOX USE ONLY) PO ONE (17:19)
[2023-07-26] MEDS: MELATONIN 5 MG TABLETS PO SCH (22:35)
[2023-07-26] MEDS: THIAMINE HCL 100 MG TABLET (FP) PO SCH (22:35)
[2023-07-26] MEDS: diazePAM 5 MG TABLET PO SCH (22:36)
[2023-07-27] MEDS: PRENATAL VITAMINS W/ FOLIC ACID TABLET (FP) PO SCH (10:32)
[2023-07-27] MEDS: METHOCARBAMOL 500 MG TABLET PO PRN (17:41)
[2023-07-28] MEDS: diazePAM 5 MG TABLET PO SCH (06:11)
[2023-07-28] MEDS: methaDONE HCL 10 MG TABLET (FOR DETOX USE ONLY) PO ONE (09:32)
[2023-07-28 11:52] VITALS: BP 133/71; PULSE 81; RESP 18; TEMP 97.1
[2023-07-29] MEDS ORDERED: diazePAM 5 MG TABLET PO SCH (06:00)
[2023-07-30] MEDS ORDERED: diazePAM 5 MG TABLET PO ONE (06:00)
[2023-07-30] MEDS ORDERED: methaDONE HCL 10 MG TABLET (FOR DETOX USE ONLY) PO ONE (10:00)
== END 2023-07-28 11:48 | disposition left against medical advice (07) | DRG 770 ==
LOC: YASAS 13:10 → Y6N 16:00
PROVIDERS: ADMIT Allergy & Immunology; ATTEND Surgery
PROC: HZ2ZZZZ Detoxification Services for Substance Abuse Treatment (ICD-10-PCS; principal; 2023-07-26)
DX: F11.23 Opioid dependence with withdrawal (principal); F10.230 Alcohol dependence with withdrawal, uncomplicated; F14.20 Cocaine dependence, uncomplicated; F17.210 Nicotine dependence, cigarettes, uncomplicated; B18.2 Chronic viral hepatitis C; R63.4 Abnormal weight loss; Z68.21 Body mass index [BMI] 21.0-21.9, adult
CPT/HCPCS: 80305; 87635; 93005; 93010

== ENCOUNTER 2023-11-23 12:18 | Inpatient (IN) | payer OTHER ==
[2023-11-23 13:03] VITALS: BMI 20.5
[2023-11-23] MEDS ORDERED: BENZOCAINE/MENTHOL (CHLORASEPTIC ) LOZENGE MM PRN (14:15)
[2023-11-23] MEDS ORDERED: POLYETHYLENE GLYCOL (HEALTHYLAX) 3350 17 GM PACKET PO PRN (14:15)
[2023-11-23] MEDS ORDERED: NALOXONE (NARCAN) HCL 4 MG/0.1 ML SPRAY NS PRN (14:15)
[2023-11-23] MEDS ORDERED: LOPERAMIDE HCL 2 MG CAPSULE PO PRN (14:15)
[2023-11-23] MEDS ORDERED: ACETAMINOPHEN 325 MG TABLET (FP) PO PRN (14:15)
[2023-11-23] MEDS ORDERED: MAGNESIUM HYDROX 2400MG/30ML ORAL SUSPENSION 30 ML CUP PO PRN (14:15)
[2023-11-23] MEDS ORDERED: NALOXONE HCL 0.4 MG/ML VIAL IM PRN (14:15)
[2023-11-23] MEDS ORDERED: METHOCARBAMOL 500 MG TABLET PO PRN (14:15)
[2023-11-23] MEDS ORDERED: BISMUTH SUBSALICYLATE 262 MG/15 ML BTL PO PRN (14:15)
[2023-11-23] MEDS ORDERED: MAG HYDROX/AL HYDROX/SIMETH 30 ML UNIT-DOSE CUP PO PRN (14:15)
[2023-11-23] MEDS ORDERED: NICOTINE POLACRILEX 2 MG LOZENGE BC PRN (14:15)
[2023-11-23] MEDS ORDERED: hydrOXYzine PAMOATE 25 MG CAPSULE (FP) PO PRN (14:15)
[2023-11-23] MEDS ORDERED: IBUPROFEN 400 MG TABLET (FP) PO PRN (14:15)
[2023-11-23] MEDS ORDERED: ONDANSETRON *ODT* 4 MG TABLET SL PRN (14:15)
[2023-11-23] MEDS ORDERED: NICOTINE POLACRILEX 2 MG GUM BUC PRN (14:15)
[2023-11-23] MEDS: IBUPROFEN 600 MG TABLET (FP) PO PRN (16:59)
[2023-11-23] MEDS: BENZONATATE 200 MG CAPSULE PO PRN (19:46)
[2023-11-23] MEDS: THIAMINE 100 MG TABLET PO SCH (22:44)
[2023-11-23] MEDS: MELATONIN 5 MG TABLETS PO SCH (22:44)
[2023-11-24 08:44] LABS: POTASSIUM 4.4 mmol/L (3.5-5.1)
[2023-11-24 08:48] LABS: ALBUMIN 3.7 g/dl (3.4-5.0); CALCIUM 9.1 mg/dL (8.5-10.1)
[2023-11-24 08:51] LABS: CREATININE 0.9 mg/dL (0.55-1.3)
[2023-11-24 08:53] LABS: BILIRUBIN,TOTAL 0.4 mg/dL (0.2-1)
[2023-11-24 09:12] LABS: HEMATOCRIT 38.6 % (35.4-49); HEMOGLOBIN 13.2 GM/dL (11.7-16.9); MCH 31.7 pg (25.7-33.7); MCHC 34.3 g/dl (32.0-35.9); MEAN CELL VOLUME 92.4 fl (80-96); MEAN PLT VOLUME 8.6 fl (7.5-11.1); PLATELET COUNT 246 10^3/uL (134-434); RBC 4.18 M/mm3 (4.00-5.60); RDW 12.8 % (11.9-15.9); WHITE BLOOD COUNT 7.9 K/mm3 (4.0-10.0)
[2023-11-24] MEDS ORDERED: cloNIDine HCL 0.1 MG TABLET PO PRN (09:16)
[2023-11-24] MEDS ORDERED: diazePAM 5 MG TABLET PO PRN (09:16)
[2023-11-24] MEDS: NICOTINE 14 MG/24 HOURS TOPICAL PATCH TD SCH (10:15)
[2023-11-24] MEDS: diazePAM 5 MG TABLET PO SCH (10:16)
[2023-11-24] MEDS: methaDONE HCL 10 MG TABLET (FOR DETOX USE ONLY) PO ONE (10:16)
[2023-11-24] MEDS: PRENATAL VITAMINS W/ FOLIC ACID TABLET (FP) PO SCH (10:18)
[2023-11-25] MEDS: guaiFENesin 600 MG TABLET.ER (FP) PO PRN (12:01)
[2023-11-25] MEDS: DICYCLOMINE HCL 10 MG CAPSULE PO PRN (21:06)
[2023-11-26] MEDS: diazePAM 5 MG TABLET PO SCH (06:28)
[2023-11-26] MEDS: methaDONE HCL 10 MG TABLET (FOR DETOX USE ONLY) PO ONE (10:41)
[2023-11-26] MEDS: guaiFENesin 600 MG TABLET.ER (FP) PO ONE (20:13)
[2023-11-26] MEDS: guaiFENesin 600 MG TABLET.ER (FP) PO SCH (23:11)
[2023-11-27] MEDS: diazePAM 5 MG TABLET PO SCH (06:12)
[2023-11-28] MEDS: diazePAM 5 MG TABLET PO ONE (06:06)
[2023-11-28] MEDS: methaDONE HCL 10 MG TABLET (FOR DETOX USE ONLY) PO ONE (10:03)
[2023-11-29 08:38] VITALS: BP 127/69; PULSE 75; RESP 18; TEMP 97.8
== END 2023-11-29 10:10 | disposition other institution (70) | DRG 773 ==
LOC: YASAS 12:18 → Y6N 16:10
PROVIDERS: ADMIT Allergy & Immunology; ATTEND Surgery
PROC: HZ2ZZZZ Detoxification Services for Substance Abuse Treatment (ICD-10-PCS; principal; 2023-11-23)
DX: F11.23 Opioid dependence with withdrawal (principal); F10.230 Alcohol dependence with withdrawal, uncomplicated; F17.210 Nicotine dependence, cigarettes, uncomplicated
CPT/HCPCS: 36415; 80053; 80305; 80307; 85027; 86780

== ENCOUNTER 2024-08-03 12:14 | Inpatient (IN) | payer OTHER ==
[2024-08-03 13:02] VITALS: BMI 23.6
[2024-08-03] MEDS ORDERED: DICYCLOMINE HCL 10 MG CAPSULE PO PRN (13:18)
[2024-08-03] MEDS ORDERED: P-EPHED 60MG/TRIPROLIDI 2.5MG TABLET PO PRN (13:18)
[2024-08-03] MEDS ORDERED: ACETAMINOPHEN 325 MG TABLET (FP) PO PRN (13:18)
[2024-08-03] MEDS ORDERED: NICOTINE POLACRILEX 2 MG LOZENGE BC PRN (13:18)
[2024-08-03] MEDS ORDERED: NICOTINE POLACRILEX 2 MG GUM BUC PRN (13:18)
[2024-08-03] MEDS ORDERED: ONDANSETRON *ODT* 4 MG TABLET SL PRN (13:18)
[2024-08-03] MEDS ORDERED: NALOXONE (NARCAN) HCL 4 MG/0.1 ML SPRAY NS PRN (13:18)
[2024-08-03] MEDS ORDERED: BENZOCAINE/MENTHOL (CHLORASEPTIC ) LOZENGE MM PRN (13:18)
[2024-08-03] MEDS ORDERED: BISMUTH SUBSALICYLATE 524 MG/30 ML PO PRN (13:18)
[2024-08-03] MEDS ORDERED: IBUPROFEN 400 MG TABLET (FP) PO PRN (13:18)
[2024-08-03] MEDS ORDERED: BENZONATATE 200 MG CAPSULE PO PRN (13:18)
[2024-08-03] MEDS ORDERED: POLYETHYLENE GLYCOL (HEALTHYLAX) 3350 17 GM PACKET PO PRN (13:18)
[2024-08-03] MEDS ORDERED: MAGNESIUM HYDROX 2400MG/30ML ORAL SUSPENSION 30 ML CUP PO PRN (13:18)
[2024-08-03] MEDS ORDERED: MAG HYDROX/AL HYDROX/SIMETH 30 ML UNIT-DOSE CUP PO PRN (13:18)
[2024-08-03] MEDS ORDERED: guaiFENesin 600 MG TABLET.ER (FP) PO PRN (13:18)
[2024-08-03] MEDS ORDERED: NICOTINE 14 MG/24 HOURS TOPICAL PATCH TD ONE (15:28)
[2024-08-03] MEDS: LIDOCAINE 4% PATCH TP SCH (15:44)
[2024-08-03] MEDS: NICOTINE 14 MG/24 HOURS TOPICAL PATCH TD SCH (15:44)
[2024-08-03] MEDS: IBUPROFEN 600 MG TABLET (FP) PO PRN (20:12)
[2024-08-03] MEDS: METHOCARBAMOL 500 MG TABLET PO PRN (20:12)
[2024-08-03] MEDS ORDERED: BACITRACIN ZINC 15 GM TUBE TOPICAL OINTMENT TP PRN (20:16)
[2024-08-03] MEDS: MELATONIN 5 MG TABLETS PO SCH (22:00)
[2024-08-03] MEDS: THIAMINE 100 MG TABLET PO SCH (22:00)
[2024-08-04] MEDS: LIDOCAINE PATCH REMOVAL MC SCH (00:16)
[2024-08-04] MEDS ORDERED: diazePAM 5 MG TABLET PO PRN (08:23)
[2024-08-04] MEDS ORDERED: cloNIDine HCL 0.1 MG TABLET PO PRN (08:23)
[2024-08-04] MEDS ORDERED: methaDONE HCL 10 MG TABLET (FOR DETOX USE ONLY) PO PRN (08:23)
[2024-08-04] MEDS: methaDONE HCL 10 MG TABLET (FOR DETOX USE ONLY) PO ONE (09:33)
[2024-08-04] MEDS: PRENATAL VITAMINS W/ FOLIC ACID TABLET (FP) PO SCH (09:36)
[2024-08-04] MEDS: LOPERAMIDE HCL 2 MG CAPSULE PO PRN (09:39)
[2024-08-04 10:11] LABS: HEMATOCRIT 42.2 % (35.4-49); HEMOGLOBIN 14.3 GM/dL (11.7-16.9); MCH 32.1 pg (25.7-33.7); MCHC 33.9 g/dl (32.0-35.9); MEAN CELL VOLUME 94.6 fl (80-96); MEAN PLT VOLUME 8.7 fl (7.5-11.1); PLATELET COUNT 224 10^3/uL (134-434); RBC 4.46 M/mm3 (4.00-5.60); RDW 13.7 % (11.9-15.9); WHITE BLOOD COUNT 6.5 K/mm3 (4.0-10.0)
[2024-08-04] MEDS: diazePAM 5 MG TABLET PO SCH (10:43)
[2024-08-04 11:12] LABS: CHLORIDE 104 mmol/L (98-107); POTASSIUM 4.9 mmol/L (3.5-5.1); SODIUM 136 mmol/L (136-145)
[2024-08-04 11:25] LABS: ALBUMIN 3.6 g/dl (3.4-5.0); ANION GAP 7 mmol/L (4-13); BLOOD UREA NITROGEN 14.5 mg/dL (7-18); CALCIUM 8.9 mg/dL (8.5-10.1); CO2 25 mmol/L (21-32)
[2024-08-04 11:26] LABS: GLUCOSE,RANDOM 99 mg/dL (74-106)
[2024-08-04 11:28] LABS: SGOT/AST 22 U/L (15-37); SGPT/ALT 24 U/L (13-61)
[2024-08-04 11:29] LABS: CREATININE 0.9 mg/dL (0.55-1.3)
[2024-08-04 11:30] LABS: BILIRUBIN,TOTAL 0.8 mg/dL (0.2-1); TOT PROT 6.6 g/dl (6.4-8.2)
[2024-08-04 11:31] LABS: ALK PHOS 105 U/L (45-117)
[2024-08-04] MEDS: BACITRACIN 0.9 GM PACKET TP PRN (14:59)
[2024-08-06] MEDS: diazePAM 5 MG TABLET PO SCH (06:10)
[2024-08-06] MEDS: methaDONE HCL 10 MG TABLET (FOR DETOX USE ONLY) PO ONE (10:49)
[2024-08-07] MEDS: diazePAM 5 MG TABLET PO SCH (06:07)
[2024-08-08] MEDS: diazePAM 5 MG TABLET PO ONE (05:59)
[2024-08-08] MEDS: methaDONE HCL 10 MG TABLET (FOR DETOX USE ONLY) PO ONE (10:46)
[2024-08-09 08:42] VITALS: BP 111/60; PULSE 64; RESP 18; TEMP 97.6
== END 2024-08-09 09:30 | disposition home or self-care (01) | DRG 773 ==
LOC: YASAS 12:14 → Y6N 15:27
PROVIDERS: ADMIT Allergy & Immunology; ATTEND Family Medicine Addiction Medicine
PROC: HZ2ZZZZ Detoxification Services for Substance Abuse Treatment (ICD-10-PCS; principal; 2024-08-03)
DX: F11.23 Opioid dependence with withdrawal (principal); F10.230 Alcohol dependence with withdrawal, uncomplicated; F17.210 Nicotine dependence, cigarettes, uncomplicated; F31.9 Bipolar disorder, unspecified
CPT/HCPCS: 36415; 80053; 80305; 80307; 85027; 86780; 93005; 93010